=== PATIENT | female | born 1990 | race African-American/Black ===

== ENCOUNTER 2017-02-16 08:52 | Inpatient (IN) | payer MEDICAID ==
[~2017-02-16] VITALS: Ht 185.4 cm; Wt 63.2 kg
[~2017-02-16 08:52] MED LIST: INSU100C3 SQ
[2017-02-16 09:02] LABS: GLUCOSE,POINT OF CARE 269 MG/DL (70-110)
[2017-02-16 09:17] LABS: BASOPHILS # (AUTO) 0.01 K/uL (0.00-0.20); BASOPHILS % (AUTO) 0.1 % (0.0-2.0); EOSINOPHILS # (AUTO) 0.01 K/uL (0.00-0.70); EOSINOPHILS % (AUTO) 0.09 % (1.0-6.0); HEMATOCRIT 41.4 % (36-46); HEMOGLOBIN 13.9 g/dL (12.0-16.0); LYMPHOCYTES # (AUTO) 0.7 K/uL (1.0-4.8); LYMPHOCYTES % (AUTO) 6.4 % (22.0-44.0); MEAN CORPUSCULAR HEMOGLOBIN 29.6 pg (26.0-34.0); MEAN CORPUSCULAR HGB CONC 33.5 G/dL (31.0-37.0); MEAN CORPUSCULAR VOLUME 89 fL (80-100); MONOCYTES # (AUTO) 1.2 K/uL (0.1-1.0); MONOCYTES % (AUTO) 10.4 % (2.0-9.0); NEUTROPHILS # (AUTO) 9.5 K/uL (1.8-7.7); PLATELET COUNT (AUTO) 251 K/uL (150-450); RED BLOOD CELL COUNT(AUTO) 4.68 MIL/uL (4.00-5.20); WHITE BLOOD COUNT (AUTO) 11.5 K/uL (4.5-11.0)
[2017-02-16] MEDS ORDERED: SODIUM CHLORIDE 0.9% 1,000 ML IV ONE ×2 (09:30→10:15)
[2017-02-16 09:33] LABS: ANION GAP 18 mmol/L (8-16); CALCIUM, TOTAL 9.6 mg/dL (8.8-10.5); CARBON DIOXIDE 18 mmol/L (22-29); CHLORIDE 93 mmol/L (98-107); CREATININE 0.71 mg/dL (0.60-1.30); GLOMERULAR FILTR. RATE CALC > 60 mL/min (>60); SODIUM SERUM 129 mmol/L (136-145); UREA NITROGEN, BLOOD 8 mg/dL (7-18)
[2017-02-16 09:34] LABS: ALANINE AMINOTRANSFERASE 16 U/L (12-78); ALBUMIN 3.5 g/dL (3.4-5.0); AMYLASE 36 U/L (25-115); ASPARTATE AMINOTRANSFERASE 25 U/L (15-37); BILIRUBIN,TOTAL 0.8 mg/dL (0.1-1.0)
[2017-02-16 09:37] LABS: APPEARANCE,URINE CLEAR (CLEAR); GLUCOSE, URINE (UA) >=1000 mg/dL (NEGATIVE); KETONES,URINE >=80 mg/dL (NEGATIVE); LEUKOCYTE ESTERASE ,URINE NEGATIVE (NEGATIVE); OCCULT BLOOD,URINE MODERATE (NEGATIVE); PH,URINE 5.5 (5.0-8.0); PROTEIN,URINE POS 1+ (NEGATIVE)
[2017-02-16 09:38] LABS: ADD UA MICROSCOPIC YES
[2017-02-16 09:46] LABS: SQUAMOUS EPITHELIAL CELL,UR Few /LPF (None Seen)
[2017-02-16] MEDS ORDERED: HYDROmorphone 2 MG/ML SYRINGE IVP ONE (10:45)
[2017-02-16] MEDS ORDERED: ONDANSETRON HCL 4 MG/2 ML VIAL IVP ONE (10:45)
[2017-02-16 11:01] LABS: ABG A-A DIFF O2 15.6 mmHg (10-20.0); ABG BASE EXCESS -12.4 mmol/L (-2.0-3.0); ABG HCO3 15.9 mmol/L (22.0-26.0); ABG OXYHEMOGLOBIN 95.3 % (94.0-100.0); ABG PCO2 30 mmHg (35-45); TEMPERATURE, FAHRENHEIT, BG 99.8 FAHREN (96.0-98.6)
[2017-02-16 11:02] LABS: ALLEN TEST, BLOOD GAS Positive
[2017-02-16] MEDS ORDERED: CefTRIAXone 1 GM/DEXTROSE 50 ML IV ONE (12:00)
[2017-02-16 12:12] LABS: GLUCOSE,POINT OF CARE 217 MG/DL (70-110)
[2017-02-16] MEDS ORDERED: SODIUM CHLORIDE 0.45% 1,000 ML IV PRN (13:16)
[2017-02-16] MEDS ORDERED: POTASSIUM CHLORIDE 40 MEQ in SODIUM CHLORIDE 0.45% 1,000 ML IV PRN (13:16)
[2017-02-16] MEDS ORDERED: INSULIN REGULAR, HUMAN 100 UNITS in SODIUM CHLORIDE 0.9% 99 ML IV PRN ×2 (13:16)
[2017-02-16] MEDS ORDERED: SODIUM CHLORIDE 0.9% 1,000 ML IV SCH (13:16)
[2017-02-16] MEDS ORDERED: POTASSIUM CHL 20 MEQ/0.45% NS 1,000 ML IV PRN (13:16)
[2017-02-16] MEDS ORDERED: DEXTROSE 5%-0.45% SODIUM CHL 1,000 ML IV PRN (13:16)
[2017-02-16] MEDS ORDERED: ONDANSETRON HCL 4 MG/2 ML VIAL IVP PRN ×2 (13:30→16:30)
[2017-02-16] MEDS ORDERED: POTASSIUM PHOS,M-BASIC-D-BASIC 20 MMOL in SODIUM CHLORIDE 0.45% 500 ML IV PRN (13:30)
[2017-02-16] MEDS ORDERED: INSULIN REGULAR, HUMAN 100 UNITS/ML IVP PRN (13:30)
[2017-02-16] MEDS ORDERED: DEXTROSE 50%-WATER 25 GM/50 ML SYRINGE IVP PRN ×2 (13:30→20:45)
[2017-02-16] MEDS ORDERED: 0.9% SODIUM CHLORIDE 10 ML SYRINGE IVP PRN (13:30)
[2017-02-16] MEDS ORDERED: INSULIN REGULAR, HUMAN 100 UNITS/ML IVP ONE (13:30)
[2017-02-16] MEDS ORDERED: ACETAMINOPHEN 325 MG TABLET PO PRN ×2 (13:30→21:15)
[2017-02-16 13:57] LABS: GLUCOSE COMMENT 1 Doctor Notified; GLUCOSE,POINT OF CARE 199 MG/DL (70-110)
[2017-02-16 15:21] LABS: ANION GAP 17 mmol/L (8-16); CALCIUM, TOTAL 8.9 mg/dL (8.8-10.5); CARBON DIOXIDE 18 mmol/L (22-29); CHLORIDE 97 mmol/L (98-107); GLOMERULAR FILTR. RATE CALC > 60 mL/min (>60); PHOSPHORUS 2.7 mg/dL (2.5-4.9); SODIUM SERUM 132 mmol/L (136-145); UREA NITROGEN, BLOOD 5 mg/dL (7-18)
[2017-02-16 15:22] LABS: GLUCOSE,POINT OF CARE 207 MG/DL (70-110)
[2017-02-16] MEDS: DEXTROSE 5%-0.45% SODIUM CHL 1,000 ML IV SCH ×2 (15:30→19:51)
[2017-02-16 16:00] VITALS: BP 118/71
[2017-02-16] MEDS ORDERED: MAGNESIUM SULFATE 3 GM in DEXTROSE 5%-WATER 100 ML IV ONE (16:00)
[2017-02-16] MEDS ORDERED: MORPHINE SULFATE 2 MG/ML SYRINGE IVP PRN (16:00)
[2017-02-16] MEDS ORDERED: PROMETHAZINE HCL 25 MG in SODIUM CHLORIDE 0.9% 50 ML IV PRN (16:00)
[2017-02-16] MEDS ORDERED: SODIUM CHLORIDE 0.9% 250 ML IV ONE (16:04)
[2017-02-16] MEDS ORDERED: ONDANSETRON HCL 4 MG/2 ML VIAL IM PRN (16:15)
[2017-02-16] MEDS ORDERED: PHENYLEPHRINE 200 MG/D5%-WATER 250 ML IV PRN (18:45)
[2017-02-16 19:16] LABS: ANION GAP 11 mmol/L (8-16); CALCIUM, TOTAL 9.1 mg/dL (8.8-10.5); CARBON DIOXIDE 23 mmol/L (22-29); CHLORIDE 100 mmol/L (98-107); CREATININE 0.65 mg/dL (0.60-1.30); GLOMERULAR FILTR. RATE CALC > 60 mL/min (>60); POTASSIUM 3.7 mmol/L (3.5-5.1); SODIUM SERUM 134 mmol/L (136-145); UREA NITROGEN, BLOOD 5 mg/dL (7-18)
[2017-02-16 20:00] VITALS: BP 110/70
[2017-02-16] MEDS ORDERED: MAGNESIUM OXIDE 400 MG TABLET PO PRN (20:30)
[2017-02-16] MEDS ORDERED: POTASSIUM CHLORIDE 20 MEQ ER TABLET PO PRN (20:30)
[2017-02-16] MEDS ORDERED: MAGNESIUM SULFATE 4 GM/WATER 100 ML IV PRN (20:30)
[2017-02-16] MEDS ORDERED: POTASSIUM CHL 10 MEQ/WATER 50 ML IV PRN (20:30)
[2017-02-16] MEDS ORDERED: MAGNESIUM SULFATE 2 GM in DEXTROSE 5%-WATER 50 ML IV PRN (20:30)
[2017-02-16] MEDS: ACETAMINOPHEN 325 MG TABLET PO PRN (20:45)
[2017-02-16] MEDS: SODIUM CHLORIDE 0.9% 1,000 ML IV SCH (21:01)
[2017-02-16] MEDS ORDERED: MAGNESIUM HYDROXIDE SUSPENSION 30 ML UDCUP PO PRN (21:15)
[2017-02-16] MEDS: INSULIN DETEMIR 100 UNITS/ML SQ SCH (21:39)
[2017-02-16 22:07] VITALS: BP 114/72
[2017-02-16] MEDS: OxyCODONE HCL/ACETAMINOPHEN 5-325 MG TABLET PO PRN (22:07)
[2017-02-16 23:07] VITALS: BP 98/68
[2017-02-17] VITALS (7 sets, daily range): BP systolic 84–108; BP diastolic 50–75
[2017-02-17] MEDS: INSULIN ASPART 100 UNITS/ML SQ PRN ×5 (00:27→22:12)
[2017-02-17 04:52] LABS: GLUCOSE,POINT OF CARE 119 MG/DL (70-110)
[2017-02-17 04:52] LABS: GLUCOSE COMMENT 1 Received Meds; GLUCOSE,POINT OF CARE 197 MG/DL (70-110)
[2017-02-17 06:05] LABS: ANION GAP 9 mmol/L (8-16); CALCIUM, TOTAL 8.7 mg/dL (8.8-10.5); CARBON DIOXIDE 25 mmol/L (22-29); CHLORIDE 102 mmol/L (98-107); CREATININE 0.53 mg/dL (0.60-1.30); GLOMERULAR FILTR. RATE CALC > 60 mL/min (>60); PHOSPHORUS 2.8 mg/dL (2.5-4.9); POTASSIUM 3.6 mmol/L (3.5-5.1); SODIUM SERUM 136 mmol/L (136-145); UREA NITROGEN, BLOOD 4 mg/dL (7-18)
[2017-02-17 06:41] LABS: BASOPHILS % (AUTO) 0.4 % (0.0-2.0); EOSINOPHILS % (AUTO) 0.7 % (1.0-6.0); HEMATOCRIT 41.1 % (36-46); HEMOGLOBIN 13.5 g/dL (12.0-16.0); LYMPHOCYTES # (AUTO) 1.3 K/uL (1.0-4.8); LYMPHOCYTES % (AUTO) 14.1 % (22.0-44.0); MEAN CORPUSCULAR HEMOGLOBIN 29.6 pg (26.0-34.0); MEAN CORPUSCULAR HGB CONC 32.8 G/dL (31.0-37.0); MEAN CORPUSCULAR VOLUME 90 fL (80-100); MONOCYTES # (AUTO) 1.4 K/uL (0.1-1.0); MONOCYTES % (AUTO) 15.9 % (2.0-9.0); NEUTROPHILS # (AUTO) 6.3 K/uL (1.8-7.7); NEUTROPHILS % (AUTO) 68.9 % (40.0-70.0); PLATELET COUNT (AUTO) 244 K/uL (150-450); RED BLOOD CELL COUNT(AUTO) 4.57 MIL/uL (4.00-5.20); RED CELL DISTRIBUTION WIDTH 12.2 % (11.5-14.5); WHITE BLOOD COUNT (AUTO) 9.1 K/uL (4.5-11.0)
[2017-02-17] MEDS: OxyCODONE HCL/ACETAMINOPHEN 5-325 MG TABLET PO PRN ×3 (06:42→22:10)
[2017-02-17] MEDS: SODIUM CHLORIDE 0.9% 1,000 ML IV SCH ×2 (06:42→17:01)
[2017-02-17 07:23] LABS: GLUCOSE,POINT OF CARE 210 MG/DL (70-110)
[2017-02-17 07:23] LABS: GLUCOSE,POINT OF CARE 161 MG/DL (70-110)
[2017-02-17 07:31] LABS: GLUCOSE COMMENT 1 Received Meds; GLUCOSE,POINT OF CARE 148 MG/DL (70-110)
[2017-02-17 07:32] LABS: GLUCOSE COMMENT 1 Received Meds; GLUCOSE,POINT OF CARE 190 MG/DL (70-110)
[2017-02-17 07:32] LABS: GLUCOSE,POINT OF CARE 104 MG/DL (70-110)
[2017-02-17] MEDS: PANTOPRAZOLE SODIUM 40 MG/VIAL IVP SCH (08:17)
[2017-02-17] MEDS: DOCUSATE SODIUM 100 MG CAPSULE PO SCH ×2 (08:17→22:11)
[2017-02-17 09:42] LABS: GLUCOSE,POINT OF CARE 134 MG/DL (70-110)
[2017-02-17] MEDS: POTASSIUM CHLORIDE 20 MEQ ER TABLET PO PRN (10:28)
[2017-02-17] MEDS: ACETAMINOPHEN 325 MG TABLET PO PRN (10:29)
[2017-02-17 11:17] LABS: GLUCOSE COMMENT 1 Received Meds; GLUCOSE,POINT OF CARE 167 MG/DL (70-110)
[2017-02-17] MEDS: CefTRIAXone 1 GM/DEXTROSE 50 ML IV SCH (11:19)
[2017-02-17] MEDS: INSULIN DETEMIR 100 UNITS/ML SQ SCH (22:13)
[2017-02-18 04:40] VITALS: BP 109/70
[2017-02-18] MEDS: SODIUM CHLORIDE 0.9% 1,000 ML IV SCH ×2 (04:43→13:56)
[2017-02-18] MEDS: POTASSIUM CHLORIDE 20 MEQ ER TABLET PO PRN (05:03)
[2017-02-18] MEDS: OxyCODONE HCL/ACETAMINOPHEN 5-325 MG TABLET PO PRN ×3 (05:03→14:40)
[2017-02-18] MEDS: INSULIN ASPART 100 UNITS/ML SQ PRN ×2 (06:11→12:34)
[2017-02-18 07:16] VITALS: BP 95/64
[2017-02-18] MEDS: PANTOPRAZOLE SODIUM 40 MG/VIAL IVP SCH (09:23)
[2017-02-18] MEDS: DOCUSATE SODIUM 100 MG CAPSULE PO SCH (09:23)
[2017-02-18] MEDS: POTASSIUM CHL 10 MEQ/WATER 50 ML IV PRN ×2 (10:43→14:02)
[2017-02-18 11:12] VITALS: BP 92/53
[2017-02-18] MEDS: CefTRIAXone 1 GM/DEXTROSE 50 ML IV SCH (12:36)
[2017-02-18 15:12] VITALS: BP 99/65
[2017-02-18 20:57] LABS: GLUCOSE,POINT OF CARE 165 MG/DL (70-110)
[2017-02-19 04:22] LABS: GLUCOSE,POINT OF CARE 141 MG/DL (70-110)
[2017-02-20 20:27] LABS: GLUCOSE COMMENT 1 Received Meds; GLUCOSE,POINT OF CARE 221 MG/DL (70-110)
== END 2017-02-18 18:35 | disposition home or self-care (01) | DRG 720 ==
LOC: EMS 08:53 → ICU 15:25 → EMS 15:29 → 5S 02-17 16:20 → 5N 02-18 04:28
PROVIDERS: ADMIT Internal Medicine; ATTEND Internal Medicine
DX: A41.59 Other Gram-negative sepsis (principal); E13.10 Other specified diabetes mellitus with ketoacidosis without coma; N39.0 Urinary tract infection, site not specified; B96.1 Klebsiella pneumoniae [K. pneumoniae] as the cause of diseases classified elsewhere; E87.1 Hypo-osmolality and hyponatremia; Z91.19 Patient's noncompliance with other medical treatment and regimen; Z79.4 Long term (current) use of insulin
CPT/HCPCS: 74176; 82805; 82962; 83735; 84100; 84132; 87040; 87081; 87086; 96361; 96365; 96367; 96375; 99291; C9113; J0696; J1170; J1815; J2270; J2405; J3475; J3480; J7030; J7050; J7060

== ENCOUNTER 2017-04-22 20:30 | Emergency (ER) | payer MEDICAID ==
[~2017-04-22] VITALS: Ht 185.4 cm; Wt 59.5 kg
[2017-04-22] MEDS ORDERED: INSLAN SQ (20:38)
[2017-04-22 20:47] LABS: GLUCOSE,POINT OF CARE 260 MG/DL (70-110)
[2017-04-22 20:55] LABS: BASOPHILS % (AUTO) 0.2 % (0.0-2.0); EOSINOPHILS % (AUTO) 0.8 % (1.0-6.0); HEMATOCRIT 40.8 % (36-46); HEMOGLOBIN 13.6 g/dL (12.0-16.0); LYMPHOCYTES # (AUTO) 1.6 K/uL (1.0-4.8); LYMPHOCYTES % (AUTO) 14.7 % (22.0-44.0); MEAN CORPUSCULAR HEMOGLOBIN 29.1 pg (26.0-34.0); MEAN CORPUSCULAR HGB CONC 33.4 G/dL (31.0-37.0); MEAN CORPUSCULAR VOLUME 87 fL (80-100); MONOCYTES # (AUTO) 0.6 K/uL (0.1-1.0); MONOCYTES % (AUTO) 5.9 % (2.0-9.0); NEUTROPHILS # (AUTO) 8.5 K/uL (1.8-7.7); NEUTROPHILS % (AUTO) 78.4 % (40.0-70.0); PLATELET COUNT (AUTO) 357 K/uL (150-450); RED BLOOD CELL COUNT(AUTO) 4.67 MIL/uL (4.00-5.20); RED CELL DISTRIBUTION WIDTH 12.5 % (11.5-14.5); WHITE BLOOD COUNT (AUTO) 10.9 K/uL (4.5-11.0)
[2017-04-22 21:03] LABS: ANION GAP 12 mmol/L (8-16); CALCIUM, TOTAL 9.9 mg/dL (8.8-10.5); CARBON DIOXIDE 29 mmol/L (22-29); CHLORIDE 96 mmol/L (98-107); CREATININE 0.82 mg/dL (0.60-1.30); GLOMERULAR FILTR. RATE CALC > 60 mL/min (>60); POTASSIUM 4.2 mmol/L (3.5-5.1); SODIUM SERUM 137 mmol/L (136-145); UREA NITROGEN, BLOOD 8 mg/dL (7-18)
[2017-04-22 21:09] LABS: ALANINE AMINOTRANSFERASE 17 U/L (12-78); ALBUMIN 3.7 g/dL (3.4-5.0); ASPARTATE AMINOTRANSFERASE 10 U/L (15-37); BILIRUBIN,TOTAL 0.7 mg/dL (0.1-1.0); TOTAL PROTEIN, SERUM 8.5 g/dL (6.4-8.2)
[2017-04-22] MEDS: DONNATAL/LIDOCAINE/MAALOX 55 ML BOTTLE PO ONE (21:52)
[2017-04-22] MEDS: ONDANSETRON HCL 4 MG TABLET PO ONE (21:52)
[2017-04-22 22:23] LABS: APPEARANCE,URINE CLOUDY (CLEAR); GLUCOSE, URINE (UA) >=1000 mg/dL (NEGATIVE); KETONES,URINE >=80 mg/dL (NEGATIVE); OCCULT BLOOD,URINE TRACE (NEGATIVE); PROTEIN,URINE SEE CONFIRM (NEGATIVE)
[2017-04-22 22:29] LABS: ADD UA MICROSCOPIC YES; LEUKOCYTE ESTERASE ,URINE LARGE (NEGATIVE); SQUAMOUS EPITHELIAL CELL,UR Few /LPF (None Seen); SULFOSALICYLIC ACID,URINE 1+ (Negative); WBC,URINE 51-100 /HPF (0-5)
[2017-04-22] MEDS: CIPROFLOXACIN HCL 250 MG TABLET PO ONE (23:16)
[2017-04-22 23:25] VITALS: BP 103/69
== END 2017-04-22 23:39 | disposition home or self-care (01) ==
LOC: EMS 20:33
DX: K29.70 Gastritis, unspecified, without bleeding (principal); N39.0 Urinary tract infection, site not specified; E11.9 Type 2 diabetes mellitus without complications; Z79.4 Long term (current) use of insulin
CPT/HCPCS: 36415; 80053; 81001; 82962; 83690; 84703; 85025; 87077; 87086; 87186; 99284; Q0162; Z7610

== ENCOUNTER 2017-08-23 10:18 | Inpatient (IN) | payer MEDICAID ==
[~2017-08-23] VITALS: Ht 185.4 cm; Wt 60.0 kg
[~2017-08-23 10:18] MED LIST changes: +INSLAN SQ
[2017-08-23 10:47] LABS: GLUCOSE,POINT OF CARE 389 MG/DL (70-110)
[2017-08-23] MEDS ORDERED: SODIUM CHLORIDE 0.9% 1,000 ML IV STA (12:02)
[2017-08-23] MEDS ORDERED: ONDANSETRON HCL 4 MG/2 ML VIAL IVP ONE (12:15)
[2017-08-23 12:26] LABS: BASOPHILS % (AUTO) 0.1 % (0.0-2.0); EOSINOPHILS % (AUTO) 0 % (1.0-6.0); HEMATOCRIT 46.4 % (36-46); HEMOGLOBIN 15.7 g/dL (12.0-16.0); LYMPHOCYTES # (AUTO) 0.9 K/uL (1.0-4.8); LYMPHOCYTES % (AUTO) 4.8 % (22.0-44.0); MEAN CORPUSCULAR HEMOGLOBIN 30.7 pg (26.0-34.0); MEAN CORPUSCULAR HGB CONC 33.9 G/dL (31.0-37.0); MEAN CORPUSCULAR VOLUME 91 fL (80-100); MONOCYTES # (AUTO) 0.6 K/uL (0.1-1.0); MONOCYTES % (AUTO) 3.5 % (2.0-9.0); NEUTROPHILS # (AUTO) 16.9 K/uL (1.8-7.7); NEUTROPHILS % (AUTO) 91.6 % (40.0-70.0); PLATELET COUNT (AUTO) 330 K/uL (150-450); RED BLOOD CELL COUNT(AUTO) 5.12 MIL/uL (4.00-5.20); RED CELL DISTRIBUTION WIDTH 12.5 % (11.5-14.5); WHITE BLOOD COUNT (AUTO) 18.5 K/uL (4.5-11.0)
[2017-08-23 12:46] LABS: ANION GAP 24 mmol/L (8-16); CALCIUM, TOTAL 9.2 mg/dL (8.8-10.5); CARBON DIOXIDE 12 mmol/L (22-29); CHLORIDE 96 mmol/L (98-107); CREATININE 0.83 mg/dL (0.60-1.30); GLOMERULAR FILTR. RATE CALC > 60 mL/min (>60); POTASSIUM 5.1 mmol/L (3.5-5.1); SODIUM SERUM 132 mmol/L (136-145); UREA NITROGEN, BLOOD 15 mg/dL (7-18)
[2017-08-23 12:48] LABS: ALANINE AMINOTRANSFERASE 40 U/L (12-78); ALBUMIN 4.8 g/dL (3.4-5.0); ASPARTATE AMINOTRANSFERASE 21 U/L (15-37); BILIRUBIN,TOTAL 0.9 mg/dL (0.1-1.0); TOTAL PROTEIN, SERUM 8.8 g/dL (6.4-8.2)
[2017-08-23] MEDS ORDERED: SODIUM CHLORIDE 0.9% 1,000 ML IV ONE ×3 (13:00→18:30)
[2017-08-23] MEDS ORDERED: INSULIN DETEMIR 100 UNITS/ML SQ ONE (13:30)
[2017-08-23] MEDS ORDERED: INSULIN ASPART 100 UNITS/ML SQ ONE ×2 (13:30→17:15)
[2017-08-23] MEDS ORDERED: METOCLOPRAMIDE HCL 5 MG/ML 2 ML VIAL IVP ONE (14:45)
[2017-08-23 15:30] LABS: ANION GAP 18 mmol/L (8-16); CALCIUM, TOTAL 8.3 mg/dL (8.8-10.5); CARBON DIOXIDE 15 mmol/L (22-29); CHLORIDE 103 mmol/L (98-107); CREATININE 0.98 mg/dL (0.60-1.30); GLOMERULAR FILTR. RATE CALC > 60 mL/min (>60); POTASSIUM 4.5 mmol/L (3.5-5.1); SODIUM SERUM 136 mmol/L (136-145); UREA NITROGEN, BLOOD 12 mg/dL (7-18)
[2017-08-23 16:19] LABS: GLUCOSE COMMENT 1 Doctor Notified; GLUCOSE,POINT OF CARE 232 MG/DL (70-110)
[2017-08-23 16:19] LABS: GLUCOSE COMMENT 1 Doctor Notified; GLUCOSE,POINT OF CARE 274 MG/DL (70-110)
[2017-08-23] MEDS ORDERED: MAGNESIUM HYDROXIDE SUSPENSION 30 ML UDCUP PO ONE (17:15)
[2017-08-23 17:17] LABS: APPEARANCE,URINE CLEAR (CLEAR); GLUCOSE, URINE (UA) >=1000 mg/dL (NEGATIVE); KETONES,URINE >=80 mg/dL (NEGATIVE); LEUKOCYTE ESTERASE ,URINE NEGATIVE (NEGATIVE); OCCULT BLOOD,URINE MODERATE (NEGATIVE); PH,URINE 5.5 (5.0-8.0); PROTEIN,URINE NEGATIVE (NEGATIVE)
[2017-08-23 17:40] LABS: WBC,URINE 0-2 /HPF (0-5)
[2017-08-23 17:41] LABS: SQUAMOUS EPITHELIAL CELL,UR Few /LPF (None Seen)
[2017-08-23 17:52] LABS: GLUCOSE,POINT OF CARE 201 MG/DL (70-110)
[2017-08-23] MEDS ORDERED: PANTOPRAZOLE SODIUM 40 MG/VIAL IVP ONE ×2 (18:15→22:45)
[2017-08-23] MEDS ORDERED: PROMETHAZINE HCL 25 MG/ML VIAL IM ONE ×2 (18:15→19:00)
[2017-08-23] MEDS ORDERED: PROMETHAZINE HCL 50 MG/ML VIAL IM ONE (18:45)
[2017-08-23 21:12] LABS: APPEARANCE,URINE CLEAR (CLEAR); GLUCOSE, URINE (UA) >=1000 mg/dL (NEGATIVE); KETONES,URINE >=80 mg/dL (NEGATIVE); LEUKOCYTE ESTERASE ,URINE NEGATIVE (NEGATIVE); OCCULT BLOOD,URINE LARGE (NEGATIVE); PH,URINE 5.5 (5.0-8.0); PROTEIN,URINE TRACE (NEGATIVE)
[2017-08-23 21:14] LABS: ANION GAP 17 mmol/L (8-16); CALCIUM, TOTAL 8.6 mg/dL (8.8-10.5); CARBON DIOXIDE 17 mmol/L (22-29); CHLORIDE 105 mmol/L (98-107); CREATININE 0.89 mg/dL (0.60-1.30); GLOMERULAR FILTR. RATE CALC > 60 mL/min (>60); POTASSIUM 4.1 mmol/L (3.5-5.1); SODIUM SERUM 139 mmol/L (136-145); UREA NITROGEN, BLOOD 8 mg/dL (7-18)
[2017-08-23 21:18] LABS: ADD UA MICROSCOPIC YES
[2017-08-23 21:19] LABS: RBC,URINE 51-100 /HPF (0-2); SQUAMOUS EPITHELIAL CELL,UR Few /LPF (None Seen); WBC,URINE 0-2 /HPF (0-5)
[2017-08-23 21:19] LABS: ALANINE AMINOTRANSFERASE 32 U/L (12-78); ASPARTATE AMINOTRANSFERASE 18 U/L (15-37); BILIRUBIN,TOTAL 0.9 mg/dL (0.1-1.0); TOTAL PROTEIN, SERUM 7.1 g/dL (6.4-8.2)
[2017-08-23 21:23] LABS: ABG A-A DIFF O2 18.3 mmHg (10-20.0); ABG BASE EXCESS -10.4 mmol/L (-2.0-3.0); ABG HCO3 17.3 mmol/L (22.0-26.0); ABG OXYHEMOGLOBIN 95.6 % (94.0-100.0); ABG PCO2 31 mmHg (35-45); ABG PH 7.326 (7.350-7.450); TEMPERATURE, FAHRENHEIT, BG 98.6 FAHREN (96.0-98.6)
[2017-08-23 21:24] LABS: ALLEN TEST, BLOOD GAS Positive
[2017-08-23] MEDS ORDERED: DEXTROSE 5%-WATER 1,000 ML IV SCH (22:28)
[2017-08-23] MEDS ORDERED: ONDANSETRON HCL 4 MG/2 ML VIAL IVP PRN (22:30)
[2017-08-23] MEDS ORDERED: ACETAMINOPHEN 325 MG TABLET PO PRN ×2 (22:30→23:00)
[2017-08-23] MEDS ORDERED: 0.9% SODIUM CHLORIDE 10 ML SYRINGE IVP PRN (22:30)
[2017-08-23] MEDS ORDERED: DEXTROSE 50%-WATER 25 GM/50 ML SYRINGE IVP PRN ×2 (22:30→23:00)
[2017-08-23] MEDS ORDERED: DONNATAL/LIDOCAINE/MAALOX 55 ML BOTTLE PO ONE (22:45)
[2017-08-23] MEDS ORDERED: SODIUM CHLORIDE 0.9% 1,000 ML IV SCH (22:56)
[2017-08-23] MEDS ORDERED: SODIUM CHLORIDE 0.45% 1,000 ML IV PRN (22:56)
[2017-08-23] MEDS ORDERED: DEXTROSE 5%-0.45% SODIUM CHL 1,000 ML IV PRN (22:56)
[2017-08-23] MEDS ORDERED: POTASSIUM CHLORIDE 40 MEQ in SODIUM CHLORIDE 0.45% 1,000 ML IV PRN (22:56)
[2017-08-23] MEDS ORDERED: POTASSIUM CHL 20 MEQ/0.45% NS 1,000 ML IV PRN (22:56)
[2017-08-23] MEDS: INSULIN REGULAR, HUMAN 100 UNITS in SODIUM CHLORIDE 0.9% 99 ML IV PRN ×2 (22:58)
[2017-08-23] MEDS ORDERED: IPRATROPIUM BROMIDE 0.5 MG/2.5 ML NEB SOLUTION NEB PRN (23:00)
[2017-08-23] MEDS ORDERED: INSULIN REGULAR, HUMAN 100 UNITS/ML IVP PRN (23:00)
[2017-08-23] MEDS ORDERED: BISACODYL 10 MG RECTAL RECTAL SUPPOSITORY PR PRN (23:00)
[2017-08-23] MEDS ORDERED: MAGNESIUM HYDROXIDE SUSPENSION 30 ML UDCUP PO PRN (23:00)
[2017-08-23] MEDS ORDERED: ALBUTEROL SULFATE 2.5 MG/0.5 ML NEB SOLUTION NEB PRN (23:00)
[2017-08-23 23:02] LABS: GLUCOSE COMMENT 1 Doctor Notified; GLUCOSE,POINT OF CARE 180 MG/DL (70-110)
[2017-08-24 00:04] LABS: ANION GAP 18 mmol/L (8-16); CALCIUM, TOTAL 8.9 mg/dL (8.8-10.5); CARBON DIOXIDE 16 mmol/L (22-29); CHLORIDE 104 mmol/L (98-107); CREATININE 0.86 mg/dL (0.60-1.30); GLOMERULAR FILTR. RATE CALC > 60 mL/min (>60); POTASSIUM 4.2 mmol/L (3.5-5.1); SODIUM SERUM 138 mmol/L (136-145); UREA NITROGEN, BLOOD 8 mg/dL (7-18)
[2017-08-24] MEDS: INSULIN REGULAR, HUMAN 100 UNITS in SODIUM CHLORIDE 0.9% 99 ML IV PRN ×2 (00:29)
[2017-08-24 01:07] LABS: GLUCOSE,POINT OF CARE 196 MG/DL (70-110)
[2017-08-24 02:12] LABS: GLUCOSE COMMENT 1 Doctor Notified; GLUCOSE,POINT OF CARE 218 MG/DL (70-110)
[2017-08-24 03:12] LABS: GLUCOSE,POINT OF CARE 194 MG/DL (70-110)
[2017-08-24 04:07] LABS: GLUCOSE,POINT OF CARE 176 MG/DL (70-110)
[2017-08-24] MEDS: ONDANSETRON HCL 4 MG/2 ML VIAL IVP PRN ×4 (04:24→21:33)
[2017-08-24 05:03] LABS: BASOPHILS # (AUTO) 0.03 K/uL (0.00-0.20); BASOPHILS % (AUTO) 0.2 % (0.0-2.0); EOSINOPHILS # (AUTO) 0.01 K/uL (0.00-0.70); EOSINOPHILS % (AUTO) 0.09 % (1.0-6.0); HEMATOCRIT 41.5 % (36-46); HEMOGLOBIN 13.9 g/dL (12.0-16.0); LYMPHOCYTES # (AUTO) 1.3 K/uL (1.0-4.8); LYMPHOCYTES % (AUTO) 10.4 % (22.0-44.0); MEAN CORPUSCULAR HEMOGLOBIN 30.4 pg (26.0-34.0); MEAN CORPUSCULAR HGB CONC 33.5 G/dL (31.0-37.0); MEAN CORPUSCULAR VOLUME 91 fL (80-100); MONOCYTES # (AUTO) 0.7 K/uL (0.1-1.0); MONOCYTES % (AUTO) 5.5 % (2.0-9.0); NEUTROPHILS # (AUTO) 10.7 K/uL (1.8-7.7); NEUTROPHILS % (AUTO) 83.8 % (40.0-70.0); PLATELET COUNT (AUTO) 276 K/uL (150-450); RED BLOOD CELL COUNT(AUTO) 4.58 MIL/uL (4.00-5.20); RED CELL DISTRIBUTION WIDTH 12.5 % (11.5-14.5); WHITE BLOOD COUNT (AUTO) 12.7 K/uL (4.5-11.0)
[2017-08-24 05:08] LABS: GLUCOSE,POINT OF CARE 178 MG/DL (70-110)
[2017-08-24] MEDS: MORPHINE SULFATE 2 MG/ML SYRINGE IVP PRN ×4 (05:09→20:07)
[2017-08-24 05:12] LABS: HEMOGLOBIN A1C 12.1 % (4.5-6.2)
[2017-08-24 05:17] LABS: ALANINE AMINOTRANSFERASE 31 U/L (12-78); ALBUMIN 3.9 g/dL (3.4-5.0); ANION GAP 16 mmol/L (8-16); ASPARTATE AMINOTRANSFERASE 19 U/L (15-37); CALCIUM, TOTAL 8.6 mg/dL (8.8-10.5); CARBON DIOXIDE 18 mmol/L (22-29); CHLORIDE 103 mmol/L (98-107); CHOL/HDL RATIO 2.3 (3.9-5.7); CREATININE 0.89 mg/dL (0.60-1.30); GLOMERULAR FILTR. RATE CALC > 60 mL/min (>60); PHOSPHORUS 1.5 mg/dL (2.5-4.9); POTASSIUM 3.9 mmol/L (3.5-5.1); SODIUM SERUM 137 mmol/L (136-145); TOTAL PROTEIN, SERUM 7.2 g/dL (6.4-8.2); UREA NITROGEN, BLOOD 8 mg/dL (7-18)
[2017-08-24 06:13] LABS: GLUCOSE,POINT OF CARE 165 MG/DL (70-110)
[2017-08-24 06:54] LABS: ABG A-A DIFF O2 7.8 mmHg (10-20.0); ABG BASE EXCESS -5.7 mmol/L (-2.0-3.0); ABG HCO3 20.4 mmol/L (22.0-26.0); ABG PCO2 37 mmHg (35-45); ABG PH 7.353 (7.350-7.450); TEMPERATURE, FAHRENHEIT, BG 98.6 FAHREN (96.0-98.6)
[2017-08-24 06:55] LABS: ALLEN TEST, BLOOD GAS Positive
[2017-08-24 07:08] LABS: GLUCOSE,POINT OF CARE 157 MG/DL (70-110)
[2017-08-24] MEDS ORDERED: DEXTROSE 50%-WATER 25 GM/50 ML SYRINGE IVP PRN ×2 (08:00→17:30)
[2017-08-24] MEDS: INSULIN DETEMIR 100 UNITS/ML SQ SCH ×2 (08:09→21:00)
[2017-08-24] MEDS: PANTOPRAZOLE SODIUM 40 MG/VIAL IVP SCH (08:10)
[2017-08-24] MEDS: SODIUM CHLORIDE 0.9% 500 ML IV SCH ×2 (08:11→11:05)
[2017-08-24 09:03] LABS: GLUCOSE,POINT OF CARE 159 MG/DL (70-110)
[2017-08-24 09:26] VITALS: BP 111/66
[2017-08-24 11:08] VITALS: BP 114/70
[2017-08-24] MEDS: INSULIN REGULAR, HUMAN 100 UNITS/ML SQ PRN ×2 (11:42→16:20)
[2017-08-24] MEDS: SODIUM CHLORIDE 0.9% 1,000 ML IV SCH ×2 (12:00→21:34)
[2017-08-24 14:33] LABS: ANION GAP 10 mmol/L (8-16); CALCIUM, TOTAL 8.6 mg/dL (8.8-10.5); CARBON DIOXIDE 21 mmol/L (22-29); CHLORIDE 105 mmol/L (98-107); CREATININE 0.76 mg/dL (0.60-1.30); GLOMERULAR FILTR. RATE CALC > 60 mL/min (>60); SODIUM SERUM 136 mmol/L (136-145); UREA NITROGEN, BLOOD 5 mg/dL (7-18)
[2017-08-24 15:30] VITALS: BP 114/69
[2017-08-24] MEDS ORDERED: INFLUENZA VIRUS VACCINE QVS 2017-18 (3YR+)/PF 60 MCG/0.5 ML SYRINGE IM ONE (19:00)
[2017-08-24 19:29] VITALS: BP 120/73
[2017-08-24 20:23] LABS: ANION GAP 14 mmol/L (8-16); CALCIUM, TOTAL 8.7 mg/dL (8.8-10.5); CARBON DIOXIDE 20 mmol/L (22-29); CHLORIDE 102 mmol/L (98-107); GLOMERULAR FILTR. RATE CALC > 60 mL/min (>60); POTASSIUM 3.9 mmol/L (3.5-5.1); SODIUM SERUM 136 mmol/L (136-145); UREA NITROGEN, BLOOD 6 mg/dL (7-18)
[2017-08-24] MEDS: INSULIN ASPART 100 UNITS/ML SQ PRN (21:26)
[2017-08-24 23:20] VITALS: BP 109/74
[2017-08-24 23:42] LABS: GLUCOSE COMMENT 1 Received Meds; GLUCOSE,POINT OF CARE 168 MG/DL (70-110)
[2017-08-24 23:48] LABS: GLUCOSE COMMENT 1 Received Meds; GLUCOSE,POINT OF CARE 187 MG/DL (70-110)
[2017-08-25] VITALS (7 sets, daily range): BP systolic 99–117; BP diastolic 58–73
[2017-08-25] MEDS: MORPHINE SULFATE 2 MG/ML SYRINGE IVP PRN ×3 (02:11→18:01)
[2017-08-25 02:33] LABS: ANION GAP 12 mmol/L (8-16); CALCIUM, TOTAL 8.3 mg/dL (8.8-10.5); CARBON DIOXIDE 21 mmol/L (22-29); CHLORIDE 104 mmol/L (98-107); CREATININE 0.76 mg/dL (0.60-1.30); GLOMERULAR FILTR. RATE CALC > 60 mL/min (>60); POTASSIUM 3.7 mmol/L (3.5-5.1); SODIUM SERUM 137 mmol/L (136-145); UREA NITROGEN, BLOOD 5 mg/dL (7-18)
[2017-08-25] MEDS: INSULIN ASPART 100 UNITS/ML SQ PRN ×4 (06:18→20:05)
[2017-08-25 06:28] LABS: GLUCOSE COMMENT 1 Received Meds; GLUCOSE,POINT OF CARE 180 MG/DL (70-110)
[2017-08-25 06:34] LABS: GLUCOSE COMMENT 1 Received Meds; GLUCOSE,POINT OF CARE 197 MG/DL (70-110)
[2017-08-25 07:06] LABS: ANION GAP 13 mmol/L (8-16); CALCIUM, TOTAL 8.3 mg/dL (8.8-10.5); CARBON DIOXIDE 21 mmol/L (22-29); CHLORIDE 103 mmol/L (98-107); CREATININE 0.78 mg/dL (0.60-1.30); GLOMERULAR FILTR. RATE CALC > 60 mL/min (>60); POTASSIUM 3.6 mmol/L (3.5-5.1); SODIUM SERUM 137 mmol/L (136-145); UREA NITROGEN, BLOOD 6 mg/dL (7-18)
[2017-08-25] MEDS: PANTOPRAZOLE SODIUM 40 MG/VIAL IVP SCH (08:50)
[2017-08-25] MEDS: INSULIN DETEMIR 100 UNITS/ML SQ SCH ×2 (08:52→20:07)
[2017-08-25] MEDS: SODIUM CHLORIDE 0.9% 1,000 ML IV SCH ×2 (08:53→18:02)
[2017-08-25] MEDS: HYDROCODONE/ACETAMINOPHEN 5-325 MG TABLET PO PRN (21:41)
[2017-08-26 00:08] LABS: GLUCOSE COMMENT 1 Received Meds; GLUCOSE,POINT OF CARE 194 MG/DL (70-110)
[2017-08-26 00:12] VITALS: BP 101/64
[2017-08-26 00:13] LABS: GLUCOSE COMMENT 1 Received Meds; GLUCOSE,POINT OF CARE 143 MG/DL (70-110)
[2017-08-26 00:37] LABS: GLUCOSE COMMENT 1 Received Meds; GLUCOSE,POINT OF CARE 198 MG/DL (70-110)
[2017-08-26 00:43] LABS: GLUCOSE COMMENT 1 Received Meds; GLUCOSE,POINT OF CARE 144 MG/DL (70-110)
[2017-08-26] MEDS: MORPHINE SULFATE 2 MG/ML SYRINGE IVP PRN ×2 (01:52→08:54)
[2017-08-26] MEDS: SODIUM CHLORIDE 0.9% 1,000 ML IV SCH (03:39)
[2017-08-26 04:17] VITALS: BP 111/67
[2017-08-26] MEDS: HYDROCODONE/ACETAMINOPHEN 5-325 MG TABLET PO PRN ×2 (05:43→12:42)
[2017-08-26 07:33] VITALS: BP 96/57
[2017-08-26] MEDS: PANTOPRAZOLE SODIUM 40 MG/VIAL IVP SCH (08:41)
[2017-08-26 08:47] VITALS: BP 117/74
[2017-08-26] MEDS: INSULIN DETEMIR 100 UNITS/ML SQ SCH (08:59)
[2017-08-26 12:21] VITALS: BP 109/72
[2017-08-26] MEDS: INSULIN ASPART 100 UNITS/ML SQ PRN ×2 (12:39→18:11)
[2017-08-26 15:41] VITALS: BP 118/70
[2017-08-27 05:58] LABS: GLUCOSE,POINT OF CARE 115 MG/DL (70-110)
[2017-08-27 05:58] LABS: GLUCOSE COMMENT 1 Received Meds; GLUCOSE,POINT OF CARE 143 MG/DL (70-110)
[2017-08-27 11:35] LABS: GLUCOSE COMMENT 1 Received Meds; GLUCOSE,POINT OF CARE 182 MG/DL (70-110)
[2017-08-28 17:32] LABS: GLUCOSE COMMENT 1 Received Meds; GLUCOSE,POINT OF CARE 175 MG/DL (70-110)
== END 2017-08-26 18:45 | disposition home or self-care (01) | DRG 639 ==
LOC: EMS 10:19 → 5S 08-24 06:09 → ICU 08-24 06:09 → 5S 08-24 08:57
PROVIDERS: ADMIT Hospitalist; ATTEND Hospitalist
PROC: 3E0234Z Introduction of Serum, Toxoid and Vaccine into Muscle, Percutaneous Approach (ICD-10-PCS; principal; 2017-08-24)
DX: E10.10 Type 1 diabetes mellitus with ketoacidosis without coma (principal); D72.829 Elevated white blood cell count, unspecified; E86.0 Dehydration; R31.29 Other microscopic hematuria; Z79.4 Long term (current) use of insulin; Z91.14 Patient's other noncompliance with medication regimen; Z23 Encounter for immunization
CPT/HCPCS: 74176; 82805; 82962; 83036; 83605; 83735; 84100; 86140; 87040; 90471; 93005; 96361; 96365; 96366; 96372; 96375; 96376; 99291; C9113; J1815; J2270; J2405; J2550; J2765; J3480; J7030; J7040; J7050; J7060

== ENCOUNTER 2018-10-08 09:06 | Emergency (ER) | payer MEDICAID ==
[~2018-10-08] VITALS: Ht 185.4 cm; Wt 55.0 kg
[2018-10-08] MEDS ORDERED: BUPIVACAINE HCL/PF 0.5% 30 ML VIAL SQ ONE (10:45)
[2018-10-08] MEDS ORDERED: CefTRIAXone SODIUM 2 GM in DEXTROSE 5%-WATER 50 ML IV ONE (10:45)
[2018-10-08] MEDS ORDERED: KETOROLAC TROMETHAMINE 30 MG/ML VIAL IVP ONE (10:45)
[2018-10-08] MEDS ORDERED: HYDROCODONE/ACETAMINOPHEN 5-325 MG TABLET PO ONE (10:45)
[2018-10-08] MEDS ORDERED: ONDANSETRON HCL 4 MG/2 ML VIAL IVP ONE (10:45)
[2018-10-08] MEDS ORDERED: INSULIN REGULAR, HUMAN 100 UNITS/ML IVP ONE (10:45)
[2018-10-08] MEDS ORDERED: DOXYCYCLINE HYCLATE 100 MG CAPSULE PO ONE (10:45)
[2018-10-08 10:56] LABS: BASOPHILS % (AUTO) 0.3 % (0.0-2.0); EOSINOPHILS % (AUTO) 0.3 % (1.0-6.0); HEMATOCRIT 36.6 % (36-46); HEMOGLOBIN 12.5 g/dL (12.0-16.0); LYMPHOCYTES # (AUTO) 0.7 K/uL (1.0-4.8); LYMPHOCYTES % (AUTO) 5.9 % (22.0-44.0); MEAN CORPUSCULAR HEMOGLOBIN 30.3 pg (26.0-34.0); MEAN CORPUSCULAR HGB CONC 34.1 G/dL (31.0-37.0); MEAN CORPUSCULAR VOLUME 89 fL (80-100); MONOCYTES # (AUTO) 1.3 K/uL (0.1-1.0); MONOCYTES % (AUTO) 10.8 % (2.0-9.0); NEUTROPHILS # (AUTO) 10.3 K/uL (1.8-7.7); NEUTROPHILS % (AUTO) 82.7 % (40.0-70.0); PLATELET COUNT (AUTO) 298 K/uL (150-450); RED BLOOD CELL COUNT(AUTO) 4.13 MIL/uL (4.00-5.20); RED CELL DISTRIBUTION WIDTH 12.2 % (11.5-14.5)
[2018-10-08 11:14] LABS: ANION GAP 9 mmol/L (8-16); CALCIUM, TOTAL 8.7 mg/dL (8.8-10.5); CARBON DIOXIDE 29 mmol/L (22-29); CHLORIDE 97 mmol/L (98-107); CREATININE 0.64 mg/dL (0.60-1.30); GLOMERULAR FILTR. RATE CALC > 60 mL/min (>60); GLUCOSE,RANDOM 268 mg/dL (70-110); POTASSIUM 3.4 mmol/L (3.5-5.1); SODIUM SERUM 135 mmol/L (136-145); UREA NITROGEN, BLOOD 5 mg/dL (7-18)
[2018-10-08 11:31] LABS: ALANINE AMINOTRANSFERASE 27 U/L (12-78); ALBUMIN 2.9 g/dL (3.4-5.0); ALKALINE PHOSPHATASE 89 U/L (46-116); ASPARTATE AMINOTRANSFERASE 28 U/L (15-37); BILIRUBIN,TOTAL 0.5 mg/dL (0.1-1.0); HCG,QUANTITATIVE < 1 mIU/mL (0-6); TOTAL PROTEIN, SERUM 7.1 g/dL (6.4-8.2)
[2018-10-08 11:34] LABS: GLUCOSE,POINT OF CARE 250 MG/DL (70-110)
[2018-10-08 11:34] LABS: ACETONE,BLOOD NEGATIVE (NEGATIVE)
[2018-10-08 14:15] VITALS: BP 115/75
== END 2018-10-08 14:17 | disposition home or self-care (01) ==
LOC: EMS 09:07
DX: L02.31 Cutaneous abscess of buttock (principal); E11.65 Type 2 diabetes mellitus with hyperglycemia; Z79.4 Long term (current) use of insulin; Z79.899 Other long term (current) drug therapy
CPT/HCPCS: 10060; 36415; 80053; 82009; 82962; 84702; 85025; 87040; 96372; 96374; 96375; 99283; J0696; J1815; J1885; J2405; J3490; J7060

== ENCOUNTER 2019-10-29 19:00 | Inpatient (IN) | payer MEDICAID ==
[~2019-10-29] VITALS: Ht 185.4 cm; Wt 53.4 kg
[2019-10-29] MEDS ORDERED: INSU100I26 SQ (19:04)
[2019-10-29] MEDS ORDERED: SODIUM CHLORIDE 0.9% 1,750 ML IV ONE (19:20)
[2019-10-29] MEDS ORDERED: INSU100V SQ (19:28)
[2019-10-29] MEDS ORDERED: 0.9% SODIUM CHLORIDE 10 ML SYRINGE IVP PRN (19:30)
[2019-10-29] MEDS ORDERED: ONDANSETRON HCL 4 MG/2 ML VIAL IVP ONE ×2 (19:30→21:45)
[2019-10-29] MEDS ORDERED: FentaNYL CITRATE-PF 100 MCG/2 ML VIAL IVP ONE (19:30)
[2019-10-29 20:45] LABS: BASOPHILS % (AUTO) 0.5 % (0.0-2.0); EOSINOPHILS % (AUTO) 0 % (1.0-6.0); HEMATOCRIT 41.6 % (36-46); HEMOGLOBIN 14.1 g/dL (12.0-16.0); LYMPHOCYTES # (AUTO) 0.7 K/uL (1.0-4.8); LYMPHOCYTES % (AUTO) 4.1 % (22.0-44.0); MEAN CORPUSCULAR HEMOGLOBIN 29.9 pg (26.0-34.0); MEAN CORPUSCULAR HGB CONC 33.9 G/dL (31.0-37.0); MEAN CORPUSCULAR VOLUME 88 fL (80-100); MONOCYTES # (AUTO) 0.5 K/uL (0.1-1.0); NEUTROPHILS # (AUTO) 15.9 K/uL (1.8-7.7); PLATELET COUNT (AUTO) 505 K/uL (150-450); RED BLOOD CELL COUNT(AUTO) 4.72 MIL/uL (4.00-5.20); RED CELL DISTRIBUTION WIDTH 12.3 % (11.5-14.5)
[2019-10-29 20:49] LABS: ABG A-A DIFF O2 14.9 mmHg (10-20.0); ABG BASE EXCESS -5.6 mmol/L (-2.0-3.0); ABG CARBOXYHEMOGLOBIN 4.3 % (0.0-1.5); ABG HCO3 20.1 mmol/L (22.0-26.0); ABG METHEMOGLOBIN 0.2 % (0.0-1.5); ABG OXYGEN CONTENT 17.3 mL/dL (15.0-23.0); ABG OXYGEN SATURATION 95.8 % (95.0-98.0); ABG OXYHEMOGLOBIN 91.5 % (94.0-100.0); ABG PCO2 42 mmHg (35-45); ABG PH 7.309 (7.350-7.450); ABG TOTAL HEMOGLOBIN 13.4 G/dL (12.0-18.0); PO2, ARTERIAL BG 84.6 mmHg (92.0-100.0); SITE, BLOOD GAS RT BRACHIAL; SOURCE, BLOOD GAS ARTERIAL; TEMPERATURE, FAHRENHEIT, BG 98.5 FAHREN (96.0-98.6)
[2019-10-29 20:49] LABS: NEUTROPHILS % (AUTO) 92.4 % (40.0-70.0)
[2019-10-29 21:07] LABS: LACTIC ACID 2.2 mmol/L (0.4-2.0)
[2019-10-29 21:08] LABS: ALANINE AMINOTRANSFERASE 14 U/L (12-78); ALBUMIN 3.6 g/dL (3.4-5.0); ALKALINE PHOSPHATASE 117 U/L (46-116); ANION GAP 16 mmol/L (8-16); ASPARTATE AMINOTRANSFERASE 13 U/L (15-37); BILIRUBIN,TOTAL 0.8 mg/dL (0.1-1.0); CALCIUM, TOTAL 9.9 mg/dL (8.8-10.5); CARBON DIOXIDE 24 mmol/L (22-29); CHLORIDE 91 mmol/L (98-107); CREATININE 1.04 mg/dL (0.60-1.30); GLOMERULAR FILTR. RATE CALC > 60 mL/min (>60); HCG,QUANTITATIVE < 1 mIU/mL (0-6); PLATELET MORPHOLOGY COMMENT GIANT PLTS PRESENT; POTASSIUM 4.5 mmol/L (3.5-5.1); SODIUM SERUM 131 mmol/L (136-145); TOTAL PROTEIN, SERUM 8.6 g/dL (6.4-8.2); UREA NITROGEN, BLOOD 15 mg/dL (7-18)
[2019-10-29 21:09] LABS: GLUCOSE,RANDOM 422 mg/dL (70-110)
[2019-10-29] MEDS ORDERED: INSULIN REGULAR, HUMAN 100 UNITS/ML IVP ONE (22:00)
[2019-10-29 22:30] LABS: GLUCOSE,POINT OF CARE 343 MG/DL (70-110)
[2019-10-29] MEDS ORDERED: PIPERACILLIN/TAZO 3.375 GM/D5W 50 ML IV ONE (22:30)
[2019-10-29] MEDS ORDERED: IOVERSOL 320 MG/ML 100 ML VIAL ONE (22:30)
[2019-10-29] MEDS ORDERED: SODIUM CHLORIDE 0.9% 100 ML ONE (22:30)
[2019-10-29 22:39] LABS: APPEARANCE,URINE CLEAR (CLEAR); BILIRUBIN,URINE NEGATIVE (NEGATIVE); GLUCOSE, URINE (UA) >=1000 mg/dL (NEGATIVE); KETONES,URINE >=80 mg/dL (NEGATIVE); LEUKOCYTE ESTERASE ,URINE NEGATIVE (NEGATIVE); NITRATE,URINE NEGATIVE (NEGATIVE); OCCULT BLOOD,URINE MODERATE (NEGATIVE); PROTEIN,URINE NEGATIVE (NEGATIVE); UROBILINOGEN,URINE 0.2 mg/dL (<=1.0)
[2019-10-29] MEDS ORDERED: MORPHINE SULFATE 4 MG/ML SYRINGE IVP ONE (22:45)
[2019-10-29 22:46] LABS: BACTERIA,URINE Few /HPF (None Seen); SQUAMOUS EPITHELIAL CELL,UR Few /LPF (None Seen)
[2019-10-29] MEDS ORDERED: PROCHLORPERAZINE EDISYLATE 5 MG/ML 2 ML VIAL IVP ONE (23:00)
[2019-10-29] MEDS ORDERED: DEXTROSE 50%-WATER 25 GM/50 ML SYRINGE IVP PRN (23:15)
[2019-10-29] MEDS ORDERED: BISACODYL 10 MG RECTAL RECTAL SUPPOSITORY PR PRN (23:15)
[2019-10-29] MEDS ORDERED: SODIUM CHLORIDE 0.9% 1,000 ML IV ONE (23:15)
[2019-10-29] MEDS ORDERED: ACETAMINOPHEN 325 MG TABLET PO PRN (23:15)
[2019-10-29] MEDS ORDERED: ONDANSETRON HCL 4 MG/2 ML VIAL IVP PRN (23:15)
[2019-10-29] MEDS ORDERED: ZOLPIDEM TARTRATE 5 MG TABLET PO PRN (23:15)
[2019-10-29] MEDS ORDERED: MAGNESIUM HYDROXIDE SUSPENSION 30 ML UDCUP PO PRN (23:15)
[2019-10-30] MEDS ORDERED: SODIUM CHLORIDE 0.9% 1,000 ML IV ONE (01:00)
[2019-10-30 01:18] LABS: ANION GAP 14 mmol/L (8-16); CALCIUM, TOTAL 8.4 mg/dL (8.8-10.5); CARBON DIOXIDE 23 mmol/L (22-29); CHLORIDE 98 mmol/L (98-107); CREATININE 0.77 mg/dL (0.60-1.30); GLOMERULAR FILTR. RATE CALC > 60 mL/min (>60); GLUCOSE,RANDOM 330 mg/dL (70-110); POTASSIUM 4.5 mmol/L (3.5-5.1); SODIUM SERUM 135 mmol/L (136-145); UREA NITROGEN, BLOOD 14 mg/dL (7-18)
[2019-10-30 01:28] LABS: LACTIC ACID 1.1 mmol/L (0.4-2.0)
[2019-10-30] MEDS ORDERED: INSULIN REGULAR, HUMAN 100 UNITS/ML IVP ONE (01:45)
[2019-10-30 01:48] LABS: GLUCOSE,POINT OF CARE 318 MG/DL (70-110)
[2019-10-30] MEDS ORDERED: CALCIUM GLUCONATE 100 MG/ML 10 ML IVP ONE (03:15)
[2019-10-30] MEDS ORDERED: CALCIUM GLUCONATE 1,000 MG in DEXTROSE 5%-WATER 50 ML IV ONE (04:00)
[2019-10-30] MEDS ORDERED: CefTRIAXone 1 GM/DEXTROSE 50 ML IV ONE (05:00)
[2019-10-30 05:42] LABS: BASOPHILS % (AUTO) 0.3 % (0.0-2.0); EOSINOPHILS % (AUTO) 0 % (1.0-6.0); HEMATOCRIT 35.3 % (36-46); LYMPHOCYTES # (AUTO) 1.5 K/uL (1.0-4.8); LYMPHOCYTES % (AUTO) 12.1 % (22.0-44.0); MEAN CORPUSCULAR HEMOGLOBIN 29.7 pg (26.0-34.0); MEAN CORPUSCULAR VOLUME 87 fL (80-100); MONOCYTES # (AUTO) 0.8 K/uL (0.1-1.0); MONOCYTES % (AUTO) 6.2 % (2.0-9.0); NEUTROPHILS # (AUTO) 10.4 K/uL (1.8-7.7); NEUTROPHILS % (AUTO) 81.4 % (40.0-70.0); PLATELET COUNT (AUTO) 413 K/uL (150-450); RED BLOOD CELL COUNT(AUTO) 4.04 MIL/uL (4.00-5.20); RED CELL DISTRIBUTION WIDTH 12.4 % (11.5-14.5)
[2019-10-30 06:01] LABS: ANION GAP 16 mmol/L (8-16); CALCIUM, TOTAL 9.6 mg/dL (8.8-10.5); CARBON DIOXIDE 20 mmol/L (22-29); CHLORIDE 98 mmol/L (98-107); CREATININE 0.73 mg/dL (0.60-1.30); GLOMERULAR FILTR. RATE CALC > 60 mL/min (>60); GLUCOSE,RANDOM 289 mg/dL (70-110); POTASSIUM 4.6 mmol/L (3.5-5.1); SODIUM SERUM 134 mmol/L (136-145); UREA NITROGEN, BLOOD 11 mg/dL (7-18)
[2019-10-30] MEDS: HEPARIN SODIUM,PORCINE 5,000 UNITS/ML VIAL SQ SCH ×3 (08:00→20:29)
[2019-10-30 08:31] LABS: GLUCOSE,POINT OF CARE 217 MG/DL (70-110)
[2019-10-30] MEDS: INSULIN LISPRO 100 UNITS/ML SQ PRN ×2 (08:32→20:34)
[2019-10-30] MEDS: MORPHINE SULFATE 2 MG/ML SYRINGE IVP PRN ×4 (08:33→23:47)
[2019-10-30] MEDS: PANTOPRAZOLE SODIUM 40 MG DR TABLET PO SCH (08:33)
[2019-10-30] MEDS: INSULIN GLARGINE,HUM.REC.ANLOG 100 UNITS/ML SQ SCH ×2 (09:00→20:32)
[2019-10-30] MEDS ORDERED: DOCUSATE SODIUM 100 MG CAPSULE PO SCH (09:00)
[2019-10-30 12:18] LABS: GLUCOSE,POINT OF CARE 175 MG/DL (70-110)
[2019-10-30] MEDS ORDERED: DOCUSATE SODIUM 100 MG CAPSULE PO PRN (12:30)
[2019-10-30] MEDS: CefTRIAXone 1 GM/DEXTROSE 50 ML IV SCH (12:47)
[2019-10-30] MEDS: SODIUM CHLORIDE 0.9% 1,000 ML IV SCH (12:48)
[2019-10-30] MEDS ORDERED: ONDANSETRON HCL 4 MG/2 ML VIAL IVP ONE ×2 (13:15→14:45)
[2019-10-30] MEDS ORDERED: ONDANSETRON HCL 4 MG/2 ML VIAL IM ONE (14:30)
[2019-10-30 16:34] LABS: GLUCOSE,POINT OF CARE 270 MG/DL (70-110)
[2019-10-30] MEDS: ONDANSETRON HCL 4 MG/2 ML VIAL IVP PRN ×2 (17:07→20:29)
[2019-10-30 18:30] VITALS: BP 106/76
[2019-10-30 23:15] VITALS: BP 111/69
[2019-10-30 23:55] LABS: GLUCOMETER DEV NAME(LOC) 5N.1; GLUCOSE,POINT OF CARE 269 MG/DL (70-110)
[2019-10-31] MEDS: ONDANSETRON HCL 4 MG/2 ML VIAL IVP PRN ×3 (04:09→10:46)
[2019-10-31 06:12] VITALS: BP 126/86
[2019-10-31] MEDS: MORPHINE SULFATE 2 MG/ML SYRINGE IVP PRN ×3 (06:13→18:25)
[2019-10-31] MEDS: SODIUM CHLORIDE 0.9% 1,000 ML IV SCH ×3 (06:17→23:43)
[2019-10-31 06:48] LABS: BASOPHILS % (AUTO) 0.4 % (0.0-2.0); EOSINOPHILS % (AUTO) 0.1 % (1.0-6.0); HEMATOCRIT 35.7 % (36-46); HEMOGLOBIN 12.3 g/dL (12.0-16.0); LYMPHOCYTES # (AUTO) 1.7 K/uL (1.0-4.8); LYMPHOCYTES % (AUTO) 15.9 % (22.0-44.0); MEAN CORPUSCULAR HEMOGLOBIN 29.7 pg (26.0-34.0); MEAN CORPUSCULAR HGB CONC 34.5 G/dL (31.0-37.0); MEAN CORPUSCULAR VOLUME 86 fL (80-100); MONOCYTES # (AUTO) 0.8 K/uL (0.1-1.0); MONOCYTES % (AUTO) 7.8 % (2.0-9.0); NEUTROPHILS # (AUTO) 8.2 K/uL (1.8-7.7); NEUTROPHILS % (AUTO) 75.8 % (40.0-70.0); PLATELET COUNT (AUTO) 451 K/uL (150-450); RED BLOOD CELL COUNT(AUTO) 4.15 MIL/uL (4.00-5.20); RED CELL DISTRIBUTION WIDTH 12.3 % (11.5-14.5)
[2019-10-31 06:59] LABS: ANION GAP 13 mmol/L (8-16); CARBON DIOXIDE 22 mmol/L (22-29); CHLORIDE 100 mmol/L (98-107); CREATININE 0.74 mg/dL (0.60-1.30); GLOMERULAR FILTR. RATE CALC > 60 mL/min (>60); GLUCOSE,RANDOM 170 mg/dL (70-110); POTASSIUM 3.7 mmol/L (3.5-5.1); SODIUM SERUM 135 mmol/L (136-145); UREA NITROGEN, BLOOD 9 mg/dL (7-18)
[2019-10-31 07:27] LABS: HEMOGLOBIN A1C 11.3 % (4.5-6.2)
[2019-10-31 07:44] VITALS: BP 110/74
[2019-10-31] MEDS: HEPARIN SODIUM,PORCINE 5,000 UNITS/ML VIAL SQ SCH ×2 (09:00→20:22)
[2019-10-31] MEDS: INSULIN GLARGINE,HUM.REC.ANLOG 100 UNITS/ML SQ SCH ×2 (09:00→20:28)
[2019-10-31] MEDS: PANTOPRAZOLE SODIUM 40 MG DR TABLET PO SCH (09:00)
[2019-10-31] MEDS ORDERED: LORazepam 2 MG/ML VIAL IM PRN (10:45)
[2019-10-31] MEDS: CefTRIAXone 1 GM/DEXTROSE 50 ML IV SCH (13:27)
[2019-10-31 17:11] VITALS: BP 108/57
[2019-10-31] MEDS: METOCLOPRAMIDE HCL 5 MG/ML 2 ML VIAL IVP PRN (18:19)
[2019-10-31] MEDS: INSULIN LISPRO 100 UNITS/ML SQ PRN (20:29)
[2019-10-31 20:42] VITALS: BP 99/67
[2019-10-31] MEDS ORDERED: SENNA 187 MG TABLET PO SCH (21:00)
[2019-10-31 22:35] LABS: GLUCOMETER DEV NAME(LOC) 5N.1; GLUCOSE,POINT OF CARE 205 MG/DL (70-110)
[2019-10-31 22:35] LABS: GLUCOMETER DEV NAME(LOC) 5N.1; GLUCOSE,POINT OF CARE 262 MG/DL (70-110)
[2019-10-31 22:36] LABS: GLUCOMETER DEV NAME(LOC) 5N.1; GLUCOSE,POINT OF CARE 185 MG/DL (70-110)
[2019-11-01 00:10] VITALS: BP 101/68
[2019-11-01 05:00] VITALS: BP 105/72
[2019-11-01 05:23] LABS: GLUCOMETER DEV NAME(LOC) 5N.2; GLUCOSE,POINT OF CARE 249 MG/DL (70-110)
[2019-11-01] MEDS: INSULIN LISPRO 100 UNITS/ML SQ PRN ×2 (05:27→12:36)
[2019-11-01] MEDS: MORPHINE SULFATE 2 MG/ML SYRINGE IVP PRN (06:01)
[2019-11-01] MEDS: ONDANSETRON HCL 4 MG/2 ML VIAL IVP PRN (06:01)
[2019-11-01 06:55] LABS: BASOPHILS % (AUTO) 0.5 % (0.0-2.0); EOSINOPHILS % (AUTO) 0.7 % (1.0-6.0); HEMATOCRIT 37.9 % (36-46); HEMOGLOBIN 13.3 g/dL (12.0-16.0); LYMPHOCYTES % (AUTO) 22.7 % (22.0-44.0); MEAN CORPUSCULAR HEMOGLOBIN 30.5 pg (26.0-34.0); MEAN CORPUSCULAR HGB CONC 35.1 G/dL (31.0-37.0); MEAN CORPUSCULAR VOLUME 87 fL (80-100); MONOCYTES # (AUTO) 0.9 K/uL (0.1-1.0); MONOCYTES % (AUTO) 9.7 % (2.0-9.0); NEUTROPHILS % (AUTO) 66.4 % (40.0-70.0); PLATELET COUNT (AUTO) 468 K/uL (150-450); RED BLOOD CELL COUNT(AUTO) 4.36 MIL/uL (4.00-5.20); RED CELL DISTRIBUTION WIDTH 12.1 % (11.5-14.5)
[2019-11-01 06:56] LABS: ANION GAP 10 mmol/L (8-16); CALCIUM, TOTAL 8.9 mg/dL (8.8-10.5); CARBON DIOXIDE 26 mmol/L (22-29); CHLORIDE 102 mmol/L (98-107); GLOMERULAR FILTR. RATE CALC > 60 mL/min (>60); GLUCOSE,RANDOM 150 mg/dL (70-110); POTASSIUM 3.5 mmol/L (3.5-5.1); SODIUM SERUM 138 mmol/L (136-145); UREA NITROGEN, BLOOD 7 mg/dL (7-18)
[2019-11-01 07:02] LABS: GLUCOMETER DEV NAME(LOC) 5N.1; GLUCOSE,POINT OF CARE 158 MG/DL (70-110)
[2019-11-01 07:30] VITALS: BP 118/73
[2019-11-01] MEDS: HEPARIN SODIUM,PORCINE 5,000 UNITS/ML VIAL SQ SCH (08:48)
[2019-11-01] MEDS: PANTOPRAZOLE SODIUM 40 MG DR TABLET PO SCH (08:48)
[2019-11-01] MEDS: HYDROCODONE/ACETAMINOPHEN 5-325 MG TABLET PO PRN ×2 (08:59→12:45)
[2019-11-01] MEDS: METOCLOPRAMIDE HCL 5 MG/ML 2 ML VIAL IVP PRN ×2 (09:01→12:45)
[2019-11-01] MEDS: INSULIN GLARGINE,HUM.REC.ANLOG 100 UNITS/ML SQ SCH (09:03)
[2019-11-01] MEDS: SODIUM CHLORIDE 0.9% 1,000 ML IV SCH (09:33)
[2019-11-01] MEDS ORDERED: LEVO500 PO (10:12)
[2019-11-01] MEDS ORDERED: METR250T PO (10:12)
[2019-11-01] MEDS ORDERED: METO5TAB87 PO (10:12)
[2019-11-01 11:57] VITALS: BP 112/71
[2019-11-01] MEDS: CefTRIAXone 1 GM/DEXTROSE 50 ML IV SCH (12:54)
[2019-11-01 15:42] VITALS: BP 107/68
[2019-11-01 20:06] LABS: GLUCOMETER DEV NAME(LOC) 5N.1; GLUCOSE,POINT OF CARE 172 MG/DL (70-110)
== END 2019-11-01 15:35 | disposition home or self-care (01) | DRG 720 ==
LOC: EMS 19:03 → 5N 10-30 16:34
PROVIDERS: ADMIT Internal Medicine; ATTEND Internal Medicine
DX: A41.9 Sepsis, unspecified organism (principal); E43 Unspecified severe protein-calorie malnutrition; E10.65 Type 1 diabetes mellitus with hyperglycemia; N39.0 Urinary tract infection, site not specified; K52.9 Noninfective gastroenteritis and colitis, unspecified; E86.0 Dehydration; N12 Tubulo-interstitial nephritis, not specified as acute or chronic
CPT/HCPCS: 36600; 51701; 74018; 74177; 82805; 83036; 83605; 84145; 87040; 87086; 93005; J0610; J0696; J0780; J1644; J1815; J2060; J2270; J2405; J2543; J2765; J3010; J7030; J7050; J7060

== ENCOUNTER 2019-11-02 10:25 | Emergency (ER) | payer MEDICAID ==
[~2019-11-02] VITALS: Ht 185.4 cm; Wt 52.3 kg
[~2019-11-02 10:25] MED LIST changes: +INSU100I26 SQ; +INSU100V SQ; +LEVO500 PO; +METO5TAB87 PO; +METR250T PO
[2019-11-02 10:51] LABS: GLUCOSE,POINT OF CARE 251 MG/DL (70-110)
[2019-11-02 11:00] LABS: BASOPHILS % (AUTO) 0.6 % (0.0-2.0); EOSINOPHILS % (AUTO) 0.1 % (1.0-6.0); HEMATOCRIT 39.5 % (36-46); HEMOGLOBIN 13.8 g/dL (12.0-16.0); LYMPHOCYTES # (AUTO) 0.8 K/uL (1.0-4.8); MEAN CORPUSCULAR HEMOGLOBIN 30.4 pg (26.0-34.0); MEAN CORPUSCULAR HGB CONC 34.9 G/dL (31.0-37.0); MEAN CORPUSCULAR VOLUME 87 fL (80-100); MONOCYTES # (AUTO) 0.4 K/uL (0.1-1.0); MONOCYTES % (AUTO) 6.5 % (2.0-9.0); NEUTROPHILS # (AUTO) 5.3 K/uL (1.8-7.7); NEUTROPHILS % (AUTO) 80.8 % (40.0-70.0); PLATELET COUNT (AUTO) 515 K/uL (150-450); RED BLOOD CELL COUNT(AUTO) 4.53 MIL/uL (4.00-5.20); RED CELL DISTRIBUTION WIDTH 12.3 % (11.5-14.5)
[2019-11-02 11:09] LABS: ANION GAP 13 mmol/L (8-16); CALCIUM, TOTAL 9.1 mg/dL (8.8-10.5); CARBON DIOXIDE 26 mmol/L (22-29); CHLORIDE 95 mmol/L (98-107); CREATININE 0.74 mg/dL (0.60-1.30); GLOMERULAR FILTR. RATE CALC > 60 mL/min (>60); GLUCOSE,RANDOM 272 mg/dL (70-110); POTASSIUM 3.6 mmol/L (3.5-5.1); SODIUM SERUM 134 mmol/L (136-145)
[2019-11-02 11:23] LABS: ALANINE AMINOTRANSFERASE 13 U/L (12-78); ALBUMIN 3.5 g/dL (3.4-5.0); ALKALINE PHOSPHATASE 92 U/L (46-116); ASPARTATE AMINOTRANSFERASE 15 U/L (15-37); BILIRUBIN,TOTAL 0.5 mg/dL (0.1-1.0); HCG,QUANTITATIVE < 1 mIU/mL (0-6); LIPASE 129 U/L (73-393); TOTAL PROTEIN, SERUM 7.7 g/dL (6.4-8.2); UREA NITROGEN, BLOOD 3 mg/dL (7-18)
[2019-11-02] MEDS ORDERED: KETOROLAC TROMETHAMINE 30 MG/ML VIAL IVP ONE (11:45)
[2019-11-02] MEDS ORDERED: ACETAMINOPHEN 500 MG TABLET PO ONE (11:45)
[2019-11-02] MEDS ORDERED: ONDANSETRON HCL 4 MG/2 ML VIAL IVP ONE (11:45)
[2019-11-02] MEDS ORDERED: SODIUM CHLORIDE 0.9% 1,000 ML IV ONE ×2 (11:45→12:45)
[2019-11-02] MEDS ORDERED: SODIUM CHLORIDE 0.9% 100 ML ONE (11:52)
[2019-11-02] MEDS ORDERED: IOVERSOL 350 MG/ML 100 ML VIAL ONE (11:52)
[2019-11-02 12:35] LABS: APPEARANCE,URINE CLEAR (CLEAR); BILIRUBIN,URINE NEGATIVE (NEGATIVE); GLUCOSE, URINE (UA) >=1000 mg/dL (NEGATIVE); KETONES,URINE >=80 mg/dL (NEGATIVE); LEUKOCYTE ESTERASE ,URINE NEGATIVE (NEGATIVE); NITRATE,URINE NEGATIVE (NEGATIVE); OCCULT BLOOD,URINE TRACE (NEGATIVE); PROTEIN,URINE NEGATIVE (NEGATIVE); UROBILINOGEN,URINE 0.2 mg/dL (<=1.0)
[2019-11-02 12:38] LABS: BACTERIA,URINE None Seen /HPF (None Seen); RBC,URINE 0-2 /HPF (0-2); WBC,URINE 0-2 /HPF (0-5)
[2019-11-02] MEDS ORDERED: MORPHINE SULFATE 2 MG/ML SYRINGE IVP ONE (13:00)
[2019-11-02] MEDS ORDERED: MAG HYDROX/AL HYDROX/SIMETH 30 ML SUSP UDCUP PO ONE (13:00)
[2019-11-02] MEDS ORDERED: FAMOTIDINE 10 MG/ML 2 ML VIAL IVP ONE (13:00)
[2019-11-02 14:06] LABS: GLUCOSE,POINT OF CARE 201 MG/DL (70-110)
[2019-11-02 15:24] VITALS: BP 111/75
== END 2019-11-02 15:24 | disposition home or self-care (01) ==
LOC: EMS 10:27
DX: R10.13 Epigastric pain (principal); R11.2 Nausea with vomiting, unspecified; E11.9 Type 2 diabetes mellitus without complications; Z79.4 Long term (current) use of insulin; Z79.899 Other long term (current) drug therapy
CPT/HCPCS: 36415; 74177; 80053; 81001; 82962; 83690; 84702; 85025; 96361; 96374; 96375; 99285; J1885; J2270; J2405; J3490; J7030; J7050; Q9967

== ENCOUNTER 2020-01-30 12:02 | Emergency (ER) | payer MEDICAID ==
[~2020-01-30] VITALS: Ht 185.4 cm; Wt 50.0 kg
[~2020-01-30 12:02] MED LIST changes: -INSLAN SQ; -INSU100C3 SQ; +LEVO-72 PO; -LEVO500 PO
[2020-01-30 12:21] LABS: GLUCOSE,POINT OF CARE 341 MG/DL (70-110)
[2020-01-30 12:50] LABS: BASOPHILS % (AUTO) 0.4 % (0.0-2.0); EOSINOPHILS % (AUTO) 0.1 % (1.0-6.0); HEMATOCRIT 45.4 % (36-46); HEMOGLOBIN 15.3 g/dL (12.0-16.0); LYMPHOCYTES # (AUTO) 1.3 K/uL (1.0-4.8); LYMPHOCYTES % (AUTO) 14.4 % (22.0-44.0); MEAN CORPUSCULAR HEMOGLOBIN 29.7 pg (26.0-34.0); MEAN CORPUSCULAR HGB CONC 33.6 G/dL (31.0-37.0); MEAN CORPUSCULAR VOLUME 88 fL (80-100); MONOCYTES # (AUTO) 0.6 K/uL (0.1-1.0); MONOCYTES % (AUTO) 7.1 % (2.0-9.0); NEUTROPHILS # (AUTO) 6.8 K/uL (1.8-7.7); PLATELET COUNT (AUTO) 309 K/uL (150-450); RED BLOOD CELL COUNT(AUTO) 5.14 MIL/uL (4.00-5.20); RED CELL DISTRIBUTION WIDTH 12.9 % (11.5-14.5)
[2020-01-30 13:01] LABS: ANION GAP 14 mmol/L (8-16); CALCIUM, TOTAL 10.4 mg/dL (8.8-10.5); CARBON DIOXIDE 27 mmol/L (22-29); CHLORIDE 93 mmol/L (98-107); CREATININE 0.89 mg/dL (0.60-1.30); GLOMERULAR FILTR. RATE CALC > 60 mL/min (>60); GLUCOSE,RANDOM 316 mg/dL (70-110); SODIUM SERUM 134 mmol/L (136-145); UREA NITROGEN, BLOOD 18 mg/dL (7-18)
[2020-01-30 13:14] LABS: ALANINE AMINOTRANSFERASE 24 U/L (12-78); ALBUMIN 4.5 g/dL (3.4-5.0); ALKALINE PHOSPHATASE 57 U/L (46-116); ASPARTATE AMINOTRANSFERASE 17 U/L (15-37); BILIRUBIN,TOTAL 0.9 mg/dL (0.1-1.0); HCG,QUANTITATIVE < 1 mIU/mL (0-6); LIPASE 96 U/L (73-393); TOTAL PROTEIN, SERUM 8.5 g/dL (6.4-8.2)
[2020-01-30] MEDS ORDERED: FAMOTIDINE 10 MG/ML 2 ML VIAL IVP ONE (13:15)
[2020-01-30] MEDS ORDERED: MORPHINE SULFATE 4 MG/ML SYRINGE IVP ONE (13:15)
[2020-01-30] MEDS ORDERED: ONDANSETRON HCL 4 MG/2 ML VIAL IVP ONE (13:15)
[2020-01-30] MEDS ORDERED: SODIUM CHLORIDE 0.9% 1,000 ML IV ONE ×2 (13:15→14:15)
[2020-01-30 16:02] VITALS: BP 102/66
== END 2020-01-30 16:00 | disposition home or self-care (01) ==
LOC: EMS 12:02
DX: R11.2 Nausea with vomiting, unspecified (principal); R10.13 Epigastric pain; E11.65 Type 2 diabetes mellitus with hyperglycemia; Z79.4 Long term (current) use of insulin; Z79.899 Other long term (current) drug therapy
CPT/HCPCS: 76705; 80053; 82962; 83690; 84702; 85025; 93005; 96361; 96374; 96375; 99285; J2270; J2405; J3490; J7030

== ENCOUNTER 2020-01-31 13:35 | Emergency (ER) | payer MEDICAID ==
[~2020-01-31] VITALS: Ht 185.4 cm; Wt 59.1 kg
[2020-01-31 14:08] LABS: GLUCOSE,POINT OF CARE 280 MG/DL (70-110)
[2020-01-31] MEDS ORDERED: IBUPROFEN 600 MG TABLET PO ONE (14:30)
[2020-01-31] MEDS ORDERED: SODIUM CHLORIDE 0.9% 1,000 ML IV ONE (14:30)
[2020-01-31] MEDS ORDERED: DICYCLOMINE HCL 20 MG TABLET PO ONE (14:30)
[2020-01-31 14:35] LABS: BASOPHILS % (AUTO) 0.6 % (0.0-2.0); EOSINOPHILS % (AUTO) 0.5 % (1.0-6.0); HEMATOCRIT 42.2 % (36-46); HEMOGLOBIN 14.3 g/dL (12.0-16.0); LYMPHOCYTES # (AUTO) 1.4 K/uL (1.0-4.8); LYMPHOCYTES % (AUTO) 23.7 % (22.0-44.0); MEAN CORPUSCULAR HEMOGLOBIN 29.9 pg (26.0-34.0); MEAN CORPUSCULAR HGB CONC 33.8 G/dL (31.0-37.0); MEAN CORPUSCULAR VOLUME 88 fL (80-100); MONOCYTES # (AUTO) 0.5 K/uL (0.1-1.0); MONOCYTES % (AUTO) 8.6 % (2.0-9.0); NEUTROPHILS # (AUTO) 4.1 K/uL (1.8-7.7); NEUTROPHILS % (AUTO) 66.6 % (40.0-70.0); PLATELET COUNT (AUTO) 289 K/uL (150-450); RED BLOOD CELL COUNT(AUTO) 4.78 MIL/uL (4.00-5.20); RED CELL DISTRIBUTION WIDTH 12.6 % (11.5-14.5)
[2020-01-31 14:45] LABS: ANION GAP 6 mmol/L (8-16); CALCIUM, TOTAL 9.1 mg/dL (8.8-10.5); CARBON DIOXIDE 31 mmol/L (22-29); CHLORIDE 97 mmol/L (98-107); CREATININE 0.77 mg/dL (0.60-1.30); GLOMERULAR FILTR. RATE CALC > 60 mL/min (>60); GLUCOSE,RANDOM 274 mg/dL (70-110); POTASSIUM 3.5 mmol/L (3.5-5.1); SODIUM SERUM 134 mmol/L (136-145); UREA NITROGEN, BLOOD 6 mg/dL (7-18)
[2020-01-31 14:56] LABS: ALANINE AMINOTRANSFERASE 22 U/L (12-78); ALKALINE PHOSPHATASE 53 U/L (46-116); ASPARTATE AMINOTRANSFERASE 13 U/L (15-37); BILIRUBIN,TOTAL 1.1 mg/dL (0.1-1.0); HCG,QUANTITATIVE < 1 mIU/mL (0-6); LIPASE 110 U/L (73-393); TOTAL PROTEIN, SERUM 7.5 g/dL (6.4-8.2)
[2020-01-31] MEDS ORDERED: IOVERSOL 350 MG/ML 100 ML VIAL ONE (15:05)
[2020-01-31] MEDS ORDERED: SODIUM CHLORIDE 0.9% 100 ML ONE (15:05)
[2020-01-31] MEDS ORDERED: METOCLOPRAMIDE HCL 5 MG/ML 2 ML VIAL IVP ONE (16:00)
[2020-01-31] MEDS ORDERED: DiphenhydrAMINE HCL 50 MG/ML VIAL IVP ONE (16:00)
[2020-01-31] MEDS ORDERED: POTASSIUM CHLORIDE 20 MEQ ER TABLET PO ONE (19:00)
[2020-01-31 19:18] LABS: APPEARANCE,URINE CLEAR (CLEAR); BILIRUBIN,URINE NEGATIVE (NEGATIVE); GLUCOSE, URINE (UA) >=1000 mg/dL (NEGATIVE); KETONES,URINE >=80 mg/dL (NEGATIVE); LEUKOCYTE ESTERASE ,URINE NEGATIVE (NEGATIVE); NITRATE,URINE NEGATIVE (NEGATIVE); OCCULT BLOOD,URINE NEGATIVE (NEGATIVE); PH,URINE 6.5 (5.0-8.0); PROTEIN,URINE NEGATIVE (NEGATIVE); UROBILINOGEN,URINE 0.2 mg/dL (<=1.0)
[2020-01-31 19:24] LABS: BACTERIA,URINE Rare /HPF (None Seen); RBC,URINE 0-2 /HPF (0-2); SQUAMOUS EPITHELIAL CELL,UR Few /LPF (None Seen); WBC,URINE 0-2 /HPF (0-5)
[2020-01-31] MEDS ORDERED: ACETAMINOPHEN 325 MG TABLET PO ONE (20:30)
[2020-01-31 20:42] VITALS: BP 111/75
== END 2020-01-31 21:19 | disposition home or self-care (01) ==
LOC: EMS 13:38
DX: K29.70 Gastritis, unspecified, without bleeding (principal); R81 Glycosuria; E11.9 Type 2 diabetes mellitus without complications; Z79.4 Long term (current) use of insulin
CPT/HCPCS: 36415; 74177; 80053; 81001; 82009; 82962; 83690; 84702; 85025; 96361; 96374; 96375; 99285; J1200; J2765; J7030; J7050; Q9967

== ENCOUNTER 2020-10-31 05:47 | Emergency (ER) | payer MEDICAID ==
[~2020-10-31] VITALS: Ht 185.4 cm; Wt 66.4 kg
[~2020-10-31 05:47] MED LIST changes: -LEVO-72 PO; +METO-296 PO; -METO5TAB87 PO; -METR250T PO
[2020-10-31 06:44] LABS: BASOPHILS % (AUTO) 0.4 % (0.0-2.0); EOSINOPHILS % (AUTO) 0 % (1.0-6.0); HEMATOCRIT 40.3 % (36-46); HEMOGLOBIN 13.3 g/dL (12.0-16.0); LYMPHOCYTES # (AUTO) 0.5 K/uL (1.0-4.8); LYMPHOCYTES % (AUTO) 4.2 % (22.0-44.0); MEAN CORPUSCULAR HEMOGLOBIN 30.2 pg (26.0-34.0); MEAN CORPUSCULAR HGB CONC 33.1 G/dL (31.0-37.0); MEAN CORPUSCULAR VOLUME 91 fL (80-100); MONOCYTES # (AUTO) 0.2 K/uL (0.1-1.0); MONOCYTES % (AUTO) 1.6 % (2.0-9.0); NEUTROPHILS # (AUTO) 12.2 K/uL (1.8-7.7); PLATELET COUNT (AUTO) 327 K/uL (150-450); RED BLOOD CELL COUNT(AUTO) 4.41 MIL/uL (4.00-5.20); RED CELL DISTRIBUTION WIDTH 12.1 % (11.5-14.5)
[2020-10-31] MEDS ORDERED: FAMOTIDINE 10 MG/ML 2 ML VIAL IVP ONE (06:45)
[2020-10-31] MEDS ORDERED: ACETAMINOPHEN 500 MG TABLET PO ONE (06:45)
[2020-10-31] MEDS ORDERED: MORPHINE SULFATE 2 MG/ML SYRINGE IVP ONE (06:45)
[2020-10-31] MEDS ORDERED: SODIUM CHLORIDE 0.9% 1,000 ML IV ONE ×2 (06:45→07:15)
[2020-10-31] MEDS ORDERED: ONDANSETRON HCL 4 MG/2 ML VIAL IVP ONE (06:45)
[2020-10-31] MEDS ORDERED: MAG HYDROX/AL HYDROX/SIMETH 30 ML SUSP UDCUP PO ONE (06:45)
[2020-10-31 06:48] LABS: NEUTROPHILS % (AUTO) 93.8 % (40.0-70.0)
[2020-10-31 06:51] LABS: ANION GAP 12 mmol/L (8-16); CALCIUM, TOTAL 9.2 mg/dL (8.8-10.5); CARBON DIOXIDE 21 mmol/L (22-29); CHLORIDE 96 mmol/L (98-107); GLOMERULAR FILTR. RATE CALC > 60 mL/min (>60); GLUCOSE,RANDOM 357 mg/dL (70-110); POTASSIUM 4.7 mmol/L (3.5-5.1); SODIUM SERUM 129 mmol/L (136-145); UREA NITROGEN, BLOOD 15 mg/dL (7-18)
[2020-10-31 07:04] LABS: ALANINE AMINOTRANSFERASE 33 U/L (12-78); ALBUMIN 4.2 g/dL (3.4-5.0); ALKALINE PHOSPHATASE 76 U/L (46-116); ASPARTATE AMINOTRANSFERASE 18 U/L (15-37); BILIRUBIN,TOTAL 0.9 mg/dL (0.1-1.0); HCG,QUANTITATIVE < 1 mIU/mL (0-6); LIPASE 49 U/L (73-393); TOTAL PROTEIN, SERUM 8.1 g/dL (6.4-8.2)
[2020-10-31] MEDS ORDERED: INSULIN REGULAR, HUMAN 100 UNITS/ML IVP ONE (07:15)
[2020-10-31] MEDS ORDERED: METOCLOPRAMIDE HCL 5 MG/ML 2 ML VIAL IVP ONE (10:00)
[2020-10-31] MEDS ORDERED: DiphenhydrAMINE HCL 50 MG/ML VIAL IVP ONE (10:00)
[2020-10-31] MEDS ORDERED: SODIUM CHLORIDE 0.9% 250 ML IV ONE (11:51)
[2020-10-31 12:54] VITALS: BP 105/57
[2020-10-31 15:42] LABS: GLUCOSE,POINT OF CARE 219 MG/DL (70-110)
== END 2020-10-31 13:13 | disposition home or self-care (01) ==
LOC: EMS 05:48
DX: E11.65 Type 2 diabetes mellitus with hyperglycemia (principal); R11.2 Nausea with vomiting, unspecified; R10.13 Epigastric pain; Z79.4 Long term (current) use of insulin
CPT/HCPCS: 36415; 80053; 82962; 83690; 84702; 85025; 96361; 96374; 96375; 99284; J1200; J1815; J2270; J2405; J2765; J3490; J7030; J7050

== ENCOUNTER 2021-01-17 14:06 | Emergency (ER) | payer MEDICAID ==
[~2021-01-17] VITALS: Ht 175.3 cm; Wt 63.6 kg
[2021-01-17] MEDS ORDERED: METOCLOPRAMIDE HCL 5 MG/ML 2 ML VIAL IVP ONE (15:15)
[2021-01-17] MEDS ORDERED: SODIUM CHLORIDE 0.9% 1,000 ML IV ONE (15:15)
[2021-01-17 16:14] LABS: BASOPHILS % (AUTO) 0.2 % (0.0-2.0); EOSINOPHILS % (AUTO) 0.1 % (1.0-6.0); HEMATOCRIT 40.5 % (36-46); HEMOGLOBIN 13.7 g/dL (12.0-16.0); LYMPHOCYTES # (AUTO) 0.7 K/uL (1.0-4.8); LYMPHOCYTES % (AUTO) 8.5 % (22.0-44.0); MEAN CORPUSCULAR HEMOGLOBIN 30.9 pg (26.0-34.0); MEAN CORPUSCULAR HGB CONC 33.7 G/dL (31.0-37.0); MEAN CORPUSCULAR VOLUME 92 fL (80-100); MONOCYTES # (AUTO) 0.3 K/uL (0.1-1.0); MONOCYTES % (AUTO) 4.2 % (2.0-9.0); PLATELET COUNT (AUTO) 313 K/uL (150-450); RED BLOOD CELL COUNT(AUTO) 4.42 MIL/uL (4.00-5.20); RED CELL DISTRIBUTION WIDTH 12.7 % (11.5-14.5)
[2021-01-17 17:06] LABS: ANION GAP 14 mmol/L (8-16); CARBON DIOXIDE 23 mmol/L (22-29); CHLORIDE 99 mmol/L (98-107); CREATININE 0.76 mg/dL (0.60-1.30); GLOMERULAR FILTR. RATE CALC > 60 mL/min (>60); GLUCOSE,RANDOM 349 mg/dL (70-110); POTASSIUM 3.8 mmol/L (3.5-5.1); SODIUM SERUM 136 mmol/L (136-145); UREA NITROGEN, BLOOD 6 mg/dL (7-18)
[2021-01-17 17:18] LABS: ALANINE AMINOTRANSFERASE 29 U/L (12-78); ALBUMIN 4.1 g/dL (3.4-5.0); ALKALINE PHOSPHATASE 67 U/L (46-116); ASPARTATE AMINOTRANSFERASE 23 U/L (15-37); BILIRUBIN,TOTAL 0.5 mg/dL (0.1-1.0); HCG,QUANTITATIVE < 1 mIU/mL (0-6); TOTAL PROTEIN, SERUM 7.7 g/dL (6.4-8.2)
[2021-01-17] MEDS ORDERED: KETOROLAC TROMETHAMINE 30 MG/ML VIAL IVP ONE (17:30)
[2021-01-17] MEDS ORDERED: HALOPERIDOL LACTATE 5 MG/ML VIAL IVP ONE (18:30)
[2021-01-17 18:59] LABS: GLUCOSE,POINT OF CARE 272 MG/DL (70-110)
[2021-01-17 19:10] VITALS: BP 120/74
== END 2021-01-17 19:12 | disposition home or self-care (01) ==
LOC: EMS 14:11
DX: F12.188 Cannabis abuse with other cannabis-induced disorder (principal); R11.2 Nausea with vomiting, unspecified; Z20.822 Contact with and (suspected) exposure to COVID-19
CPT/HCPCS: 80053; 82962; 84702; 85025; 96361; 96374; 96375; 99284; J1630; J1885; J2765; J7030; 82948; 99285

== ENCOUNTER 2021-05-04 21:15 | Inpatient (IN) | payer MEDICAID ==
[~2021-05-04] VITALS: Ht 185.4 cm; Wt 59.0 kg
[~2021-05-04 21:15] MED LIST changes: +ONDA-104 PO
[2021-05-04] MEDS ORDERED: ONDANSETRON HCL 4 MG/2 ML VIAL IVP ONE (22:00)
[2021-05-04] MEDS ORDERED: MORPHINE SULFATE 2 MG/ML SYRINGE IVP ONE (22:00)
[2021-05-04] MEDS ORDERED: SODIUM CHLORIDE 0.9% 1,000 ML IV ONE (22:00)
[2021-05-04 22:16] LABS: ABG A-A DIFF O2 10.1 mmHg (10-20.0); ABG BASE EXCESS -5.4 mmol/L (-2.0-3.0); ABG CARBOXYHEMOGLOBIN 0.2 % (0.0-1.5); ABG HCO3 21.2 mmol/L (22.0-26.0); ABG METHEMOGLOBIN 0.2 % (0.0-1.5); ABG OXYGEN CONTENT 18.3 mL/dL (15.0-23.0); ABG OXYGEN SATURATION 97.8 % (95.0-98.0); ABG OXYHEMOGLOBIN 97.4 % (94.0-100.0); ABG PCO2 28 mmHg (35-45); ABG PH 7.442 (7.350-7.450); ABG TOTAL HEMOGLOBIN 13.3 G/dL (12.0-18.0); PO2, ARTERIAL BG 105.9 mmHg (92.0-100.0); SOURCE, BLOOD GAS ARTERIAL; TEMPERATURE, FAHRENHEIT, BG 98.8 FAHREN (96.0-98.6)
[2021-05-04 22:17] LABS: O2 DEVICE,BLOOD GAS ROOM AIR (ROOM AIR); SITE, BLOOD GAS LFT RADIAL
[2021-05-04 22:23] LABS: BASOPHILS % (AUTO) 0.4 % (0.0-2.0); EOSINOPHILS % (AUTO) 0.4 % (1.0-6.0); HEMATOCRIT 39.3 % (36-46); HEMOGLOBIN 12.9 g/dL (12.0-16.0); LYMPHOCYTES # (AUTO) 1.2 K/uL (1.0-4.8); LYMPHOCYTES % (AUTO) 17.8 % (22.0-44.0); MEAN CORPUSCULAR HEMOGLOBIN 29.8 pg (26.0-34.0); MEAN CORPUSCULAR HGB CONC 32.9 G/dL (31.0-37.0); MEAN CORPUSCULAR VOLUME 91 fL (80-100); MONOCYTES # (AUTO) 0.2 K/uL (0.1-1.0); MONOCYTES % (AUTO) 3.6 % (2.0-9.0); NEUTROPHILS # (AUTO) 5.3 K/uL (1.8-7.7); NEUTROPHILS % (AUTO) 77.8 % (40.0-70.0); PLATELET COUNT (AUTO) 308 K/uL (150-450); RED BLOOD CELL COUNT(AUTO) 4.33 MIL/uL (4.00-5.20); RED CELL DISTRIBUTION WIDTH 12.7 % (11.5-14.5)
[2021-05-04 22:52] LABS: ANION GAP 21 mmol/L (8-16); CALCIUM, TOTAL 8.6 mg/dL (8.8-10.5); CARBON DIOXIDE 20 mmol/L (22-29); CHLORIDE 98 mmol/L (98-107); CREATININE 0.82 mg/dL (0.60-1.30); GLOMERULAR FILTR. RATE CALC > 60 mL/min (>60); GLUCOSE,RANDOM 361 mg/dL (70-110); POTASSIUM 3.7 mmol/L (3.5-5.1); SODIUM SERUM 139 mmol/L (136-145); UREA NITROGEN, BLOOD 6 mg/dL (7-18)
[2021-05-04] MEDS ORDERED: INSULIN REGULAR, HUMAN 100 UNITS/ML IVP ONE (23:00)
[2021-05-04 23:04] LABS: ALANINE AMINOTRANSFERASE 29 U/L (12-78); ALBUMIN 3.9 g/dL (3.4-5.0); ALKALINE PHOSPHATASE 91 U/L (46-116); ASPARTATE AMINOTRANSFERASE 21 U/L (15-37); BILIRUBIN,TOTAL 0.5 mg/dL (0.1-1.0); HCG,QUANTITATIVE < 1 mIU/mL (0-6); LIPASE 221 U/L (73-393); TOTAL PROTEIN, SERUM 7.3 g/dL (6.4-8.2)
[2021-05-04 23:46] LABS: GLUCOMETER DEV NAME(LOC) ERT.5; GLUCOSE,POINT OF CARE 304 MG/DL (70-110)
[2021-05-05] MEDS ORDERED: MAGNESIUM HYDROXIDE SUSPENSION 30 ML UDCUP PO PRN (00:15)
[2021-05-05] MEDS ORDERED: OxyCODONE HCL/ACETAMINOPHEN 5-325 MG TABLET PO PRN (00:15)
[2021-05-05] MEDS ORDERED: MORPHINE SULFATE 2 MG/ML SYRINGE IVP ONE (00:15)
[2021-05-05] MEDS ORDERED: INSULIN LISPRO 100 UNITS/ML SQ PRN (00:15)
[2021-05-05] MEDS ORDERED: MORPHINE SULFATE 2 MG/ML SYRINGE IVP PRN (00:15)
[2021-05-05] MEDS ORDERED: ACETAMINOPHEN 325 MG TABLET PO PRN (00:15)
[2021-05-05] MEDS ORDERED: ONDANSETRON HCL 4 MG/2 ML VIAL IVP ONE (00:15)
[2021-05-05] MEDS ORDERED: ONDANSETRON HCL 4 MG/2 ML VIAL IVP PRN (00:15)
[2021-05-05] MEDS ORDERED: DEXTROSE 50%-WATER 25 GM/50 ML SYRINGE IVP PRN (00:15)
[2021-05-05] MEDS: SODIUM CHLORIDE 0.9% 1,000 ML IV SCH ×2 (00:31→10:07)
[2021-05-05 02:10] VITALS: BP 143/97
[2021-05-05 03:49] VITALS: BP 112/75
[2021-05-05 03:50] VITALS: BP 112/75
[2021-05-05 07:34] LABS: GLUCOMETER DEV NAME(LOC) 6N.1; GLUCOSE,POINT OF CARE 197 MG/DL (70-110)
[2021-05-05 07:53] VITALS: BP 110/71
[2021-05-05] MEDS ORDERED: HEPARIN SODIUM,PORCINE 5,000 UNITS/ML VIAL SQ SCH (08:00)
[2021-05-05] MEDS ORDERED: PANTOPRAZOLE SODIUM 40 MG/VIAL IVP SCH (09:00)
[2021-05-05] MEDS ORDERED: INSULIN GLARGINE,HUM.REC.ANLOG 100 UNITS/ML SQ SCH (09:00)
== END 2021-05-05 11:12 | disposition left against medical advice (07) | DRG 48 ==
LOC: EMS 21:18 → 6N 05-05 00:17
PROVIDERS: ADMIT Internal Medicine; ATTEND Internal Medicine
DX: E11.43 Type 2 diabetes mellitus with diabetic autonomic (poly)neuropathy (principal); E11.65 Type 2 diabetes mellitus with hyperglycemia; K31.84 Gastroparesis; F12.90 Cannabis use, unspecified, uncomplicated; E11.8 Type 2 diabetes mellitus with unspecified complications
CPT/HCPCS: 36600; 80053; 82805; 82962; 83690; 84702; 85025; 93005; 99285; C9113; G0480; J1644; J1815; J2270; J2405; J7030

== ENCOUNTER 2021-07-09 09:21 | Emergency (ER) | payer MEDICAID ==
[~2021-07-09] VITALS: Ht 185.4 cm; Wt 59.1 kg
[~2021-07-09 09:21] MED LIST changes: -METO-296 PO; -ONDA-104 PO
[2021-07-09] MEDS ORDERED: ONDANSETRON HCL 4 MG/2 ML VIAL IVP ONE (09:45)
[2021-07-09] MEDS ORDERED: SODIUM CHLORIDE 0.9% 1,000 ML IV ONE (09:45)
[2021-07-09 10:01] LABS: BASOPHILS % (AUTO) 0.4 % (0.0-2.0); EOSINOPHILS % (AUTO) 0.5 % (1.0-6.0); HEMATOCRIT 41.7 % (36-46); HEMOGLOBIN 13.9 g/dL (12.0-16.0); LYMPHOCYTES # (AUTO) 1.3 K/uL (1.0-4.8); LYMPHOCYTES % (AUTO) 13.3 % (22.0-44.0); MEAN CORPUSCULAR HEMOGLOBIN 30.4 pg (26.0-34.0); MEAN CORPUSCULAR HGB CONC 33.3 G/dL (31.0-37.0); MEAN CORPUSCULAR VOLUME 91 fL (80-100); MONOCYTES # (AUTO) 0.5 K/uL (0.1-1.0); MONOCYTES % (AUTO) 4.9 % (2.0-9.0); NEUTROPHILS % (AUTO) 80.9 % (40.0-70.0); PLATELET COUNT (AUTO) 341 K/uL (150-450); RED BLOOD CELL COUNT(AUTO) 4.57 MIL/uL (4.00-5.20); RED CELL DISTRIBUTION WIDTH 12.5 % (11.5-14.5)
[2021-07-09 10:10] LABS: ANION GAP 9 mmol/L (8-16); CALCIUM, TOTAL 9.1 mg/dL (8.8-10.5); CARBON DIOXIDE 30 mmol/L (22-29); CHLORIDE 103 mmol/L (98-107); CREATININE 0.84 mg/dL (0.60-1.30); GLOMERULAR FILTR. RATE CALC > 60 mL/min (>60); GLUCOSE,RANDOM 266 mg/dL (70-110); POTASSIUM 3.2 mmol/L (3.5-5.1); SODIUM SERUM 142 mmol/L (136-145); UREA NITROGEN, BLOOD 11 mg/dL (7-18)
[2021-07-09 10:23] LABS: ALANINE AMINOTRANSFERASE 37 U/L (12-78); ALBUMIN 4.1 g/dL (3.4-5.0); ALKALINE PHOSPHATASE 111 U/L (46-116); ASPARTATE AMINOTRANSFERASE 18 U/L (15-37); BILIRUBIN,TOTAL 0.4 mg/dL (0.1-1.0); HCG,QUANTITATIVE < 1 mIU/mL (0-6); LIPASE 114 U/L (73-393); TOTAL PROTEIN, SERUM 7.9 g/dL (6.4-8.2)
[2021-07-09 10:26] LABS: APPEARANCE,URINE CLEAR (CLEAR); BILIRUBIN,URINE NEGATIVE (NEGATIVE); GLUCOSE, URINE (UA) >=1000 mg/dL (NEGATIVE); KETONES,URINE 40 mg/dL (NEGATIVE); LEUKOCYTE ESTERASE ,URINE NEGATIVE (NEGATIVE); NITRATE,URINE NEGATIVE (NEGATIVE); OCCULT BLOOD,URINE NEGATIVE (NEGATIVE); PROTEIN,URINE TRACE (NEGATIVE)
[2021-07-09 10:36] LABS: AMPHET/METH SCREEN,URINE NEGATIVE (NEGATIVE); BARBITURATE SCREEN, URINE NEGATIVE (NEGATIVE); BENZODIAZEPINES SCREEN,URINE NEGATIVE (NEGATIVE); CANNABINOID SCREEN,URINE POSITIVE (NEGATIVE); COCAINE SCREEN,URINE NEGATIVE (NEGATIVE); METHADONE SCREEN, URINE NEGATIVE (NEGATIVE); OPIATE SCREEN,URINE NEGATIVE (NEGATIVE)
[2021-07-09 10:41] LABS: PHENCYCLIDINE SCREEN,URINE NEGATIVE (NEGATIVE)
[2021-07-09] MEDS ORDERED: HALOPERIDOL LACTATE 5 MG/ML VIAL IVP ONE (10:45)
[2021-07-09] MEDS ORDERED: DiphenhydrAMINE HCL 50 MG/ML VIAL IVP ONE (10:45)
[2021-07-09 11:35] LABS: BACTERIA,URINE None Seen /HPF (None Seen); RBC,URINE None Seen /HPF (0-2); SQUAMOUS EPITHELIAL CELL,UR Few /LPF (None Seen); WBC,URINE None Seen /HPF (0-5)
[2021-07-09 12:00] VITALS: BP 139/73
[2021-07-09] MEDS ORDERED: POTASSIUM CHLORIDE 20 MEQ ER TABLET PO ONE (12:15)
[2021-07-09] MEDS ORDERED: PB/HYOSCY/ATR/SCOP/LIDO/MAALOX 55 ML BOTTLE PO ONE (12:15)
== END 2021-07-09 12:30 | disposition home or self-care (01) ==
LOC: EMS 09:24
DX: F12.188 Cannabis abuse with other cannabis-induced disorder (principal)
CPT/HCPCS: 36415; 80053; 80307; 81001; 81003; 82962; 83690; 84702; 85025; 96361; 96374; 96375; 99284; J1200; J1630; J2405; J7030

== ENCOUNTER 2021-07-11 07:28 | Emergency (ER) | payer MEDICAID ==
[~2021-07-11] VITALS: Ht 182.9 cm; Wt 54.5 kg
[2021-07-11] MEDS ORDERED: SODIUM CHLORIDE 0.9% 1,000 ML IV ONE (08:00)
[2021-07-11] MEDS ORDERED: LORazepam 2 MG/ML VIAL IVP ONE (08:15)
[2021-07-11] MEDS ORDERED: CAPSAICIN 0.075% 60 GM CREAM TP ONE (08:15)
[2021-07-11 08:45] LABS: BASOPHILS % (AUTO) 0.3 % (0.0-2.0); EOSINOPHILS % (AUTO) 0.5 % (1.0-6.0); HEMOGLOBIN 13.5 g/dL (12.0-16.0); LYMPHOCYTES # (AUTO) 1.2 K/uL (1.0-4.8); LYMPHOCYTES % (AUTO) 10.9 % (22.0-44.0); MEAN CORPUSCULAR HGB CONC 32.9 G/dL (31.0-37.0); MEAN CORPUSCULAR VOLUME 91 fL (80-100); MONOCYTES # (AUTO) 0.6 K/uL (0.1-1.0); MONOCYTES % (AUTO) 5.7 % (2.0-9.0); NEUTROPHILS # (AUTO) 9.4 K/uL (1.8-7.7); NEUTROPHILS % (AUTO) 82.6 % (40.0-70.0); PLATELET COUNT (AUTO) 316 K/uL (150-450); RED BLOOD CELL COUNT(AUTO) 4.49 MIL/uL (4.00-5.20)
[2021-07-11 08:58] LABS: ANION GAP 10 mmol/L (8-16); CARBON DIOXIDE 26 mmol/L (22-29); CHLORIDE 97 mmol/L (98-107); CREATININE 0.76 mg/dL (0.60-1.30); GLOMERULAR FILTR. RATE CALC > 60 mL/min (>60); GLUCOSE,RANDOM 273 mg/dL (70-110); POTASSIUM 3.3 mmol/L (3.5-5.1); SODIUM SERUM 133 mmol/L (136-145); UREA NITROGEN, BLOOD 12 mg/dL (7-18)
[2021-07-11 09:09] LABS: ALANINE AMINOTRANSFERASE 30 U/L (12-78); ALBUMIN 4.2 g/dL (3.4-5.0); ALKALINE PHOSPHATASE 71 U/L (46-116); ASPARTATE AMINOTRANSFERASE 17 U/L (15-37); BILIRUBIN,TOTAL 0.7 mg/dL (0.1-1.0); HCG,QUANTITATIVE < 1 mIU/mL (0-6); LIPASE 116 U/L (73-393); TOTAL PROTEIN, SERUM 7.6 g/dL (6.4-8.2)
[2021-07-11] MEDS ORDERED: MAGNESIUM SULFATE 2 GM/WATER 50 ML IV ONE (09:15)
[2021-07-11] MEDS ORDERED: POTASSIUM CHL 20 MEQ/0.9% NS 1,000 ML IV ONE (09:15)
[2021-07-11] MEDS ORDERED: HALOPERIDOL LACTATE 5 MG/ML VIAL IVP ONE (11:15)
[2021-07-11 17:06] VITALS: BP 102/70
== END 2021-07-11 17:12 | disposition home or self-care (01) ==
LOC: EMS 07:31
DX: F12.188 Cannabis abuse with other cannabis-induced disorder (principal); E11.9 Type 2 diabetes mellitus without complications; F17.210 Nicotine dependence, cigarettes, uncomplicated; Z79.4 Long term (current) use of insulin
CPT/HCPCS: 36415; 80053; 82962; 83690; 83735; 84702; 85025; 93005; 96361; 96365; 96366; 96375; 99285; J1630; J2060; J3475; J3480; J7030; 96367; 96368

== ENCOUNTER 2021-07-13 14:46 | Emergency (ER) | payer MEDICAID ==
[~2021-07-13] VITALS: Ht 185.4 cm; Wt 62.7 kg
[2021-07-13 15:12] LABS: GLUCOMETER DEV NAME(LOC) ERT.5; GLUCOSE,POINT OF CARE 277 MG/DL (70-110)
[2021-07-13] MEDS ORDERED: SODIUM CHLORIDE 0.9% 1,000 ML IV ONE (15:45)
[2021-07-13] MEDS ORDERED: DiphenhydrAMINE HCL 50 MG/ML VIAL IVP ONE ×2 (15:45→18:30)
[2021-07-13] MEDS ORDERED: METOCLOPRAMIDE HCL 5 MG/ML 2 ML VIAL IVP ONE (15:45)
[2021-07-13 15:54] LABS: BASOPHILS % (AUTO) 0.4 % (0.0-2.0); EOSINOPHILS % (AUTO) 0.6 % (1.0-6.0); HEMATOCRIT 38.7 % (36-46); LYMPHOCYTES # (AUTO) 1.2 K/uL (1.0-4.8); LYMPHOCYTES % (AUTO) 17.1 % (22.0-44.0); MEAN CORPUSCULAR HEMOGLOBIN 30.4 pg (26.0-34.0); MEAN CORPUSCULAR HGB CONC 33.5 G/dL (31.0-37.0); MEAN CORPUSCULAR VOLUME 91 fL (80-100); MONOCYTES # (AUTO) 0.7 K/uL (0.1-1.0); MONOCYTES % (AUTO) 10.1 % (2.0-9.0); NEUTROPHILS # (AUTO) 4.9 K/uL (1.8-7.7); NEUTROPHILS % (AUTO) 71.8 % (40.0-70.0); PLATELET COUNT (AUTO) 304 K/uL (150-450); RED BLOOD CELL COUNT(AUTO) 4.26 MIL/uL (4.00-5.20)
[2021-07-13 16:04] LABS: ANION GAP 7 mmol/L (8-16); CALCIUM, TOTAL 8.9 mg/dL (8.8-10.5); CARBON DIOXIDE 28 mmol/L (22-29); CHLORIDE 97 mmol/L (98-107); CREATININE 0.72 mg/dL (0.60-1.30); GLOMERULAR FILTR. RATE CALC > 60 mL/min (>60); GLUCOSE,RANDOM 281 mg/dL (70-110); POTASSIUM 3.4 mmol/L (3.5-5.1); SODIUM SERUM 132 mmol/L (136-145); UREA NITROGEN, BLOOD 4 mg/dL (7-18)
[2021-07-13 16:09] LABS: ALANINE AMINOTRANSFERASE 33 U/L (12-78); ALBUMIN 4.2 g/dL (3.4-5.0); ALKALINE PHOSPHATASE 66 U/L (46-116); ASPARTATE AMINOTRANSFERASE 31 U/L (15-37); BILIRUBIN,TOTAL 0.8 mg/dL (0.1-1.0); LIPASE 104 U/L (73-393); TOTAL PROTEIN, SERUM 7.5 g/dL (6.4-8.2)
[2021-07-13] MEDS ORDERED: KETOROLAC TROMETHAMINE 30 MG/ML VIAL IVP ONE (16:30)
[2021-07-13 17:10] VITALS: BP 141/101
== END 2021-07-13 18:52 | disposition home or self-care (01) ==
LOC: EMS 14:46
DX: F12.188 Cannabis abuse with other cannabis-induced disorder (principal); R11.2 Nausea with vomiting, unspecified; E11.9 Type 2 diabetes mellitus without complications; F17.210 Nicotine dependence, cigarettes, uncomplicated; Z79.4 Long term (current) use of insulin
CPT/HCPCS: 36415; 80053; 82962; 83690; 85025; 96361; 96374; 96375; 96376; 99284; J1200; J1885; J2765; J7030

== ENCOUNTER 2021-07-17 10:00 | Emergency (ER) | payer MEDICAID ==
[~2021-07-17] VITALS: Ht 185.4 cm; Wt 61.4 kg
[2021-07-17] MEDS ORDERED: SODIUM CHLORIDE 0.9% 1,000 ML IV ONE ×2 (12:00→14:00)
[2021-07-17] MEDS ORDERED: ONDANSETRON HCL 4 MG/2 ML VIAL IVP ONE (12:00)
[2021-07-17] MEDS ORDERED: CAPSAICIN 0.025% 60 GM CREAM TP ONE (12:15)
[2021-07-17 12:52] LABS: BASOPHILS % (AUTO) 0.5 % (0.0-2.0); EOSINOPHILS % (AUTO) 0.4 % (1.0-6.0); HEMATOCRIT 39.3 % (36-46); HEMOGLOBIN 13.2 g/dL (12.0-16.0); LYMPHOCYTES # (AUTO) 0.9 K/uL (1.0-4.8); LYMPHOCYTES % (AUTO) 11.6 % (22.0-44.0); MEAN CORPUSCULAR HEMOGLOBIN 30.3 pg (26.0-34.0); MEAN CORPUSCULAR HGB CONC 33.7 G/dL (31.0-37.0); MEAN CORPUSCULAR VOLUME 90 fL (80-100); MONOCYTES # (AUTO) 0.6 K/uL (0.1-1.0); MONOCYTES % (AUTO) 7.5 % (2.0-9.0); PLATELET COUNT (AUTO) 289 K/uL (150-450); RED BLOOD CELL COUNT(AUTO) 4.36 MIL/uL (4.00-5.20); RED CELL DISTRIBUTION WIDTH 13.1 % (11.5-14.5)
[2021-07-17 13:12] LABS: ALANINE AMINOTRANSFERASE 40 U/L (12-78); ALBUMIN 4.2 g/dL (3.4-5.0); ALKALINE PHOSPHATASE 86 U/L (46-116); ANION GAP 10 mmol/L (8-16); ASPARTATE AMINOTRANSFERASE 26 U/L (15-37); BILIRUBIN,TOTAL 0.6 mg/dL (0.1-1.0); CALCIUM, TOTAL 8.8 mg/dL (8.8-10.5); CARBON DIOXIDE 28 mmol/L (22-29); CHLORIDE 99 mmol/L (98-107); GLOMERULAR FILTR. RATE CALC > 60 mL/min (>60); GLUCOSE,RANDOM 344 mg/dL (70-110); HCG,QUANTITATIVE < 1 mIU/mL (0-6); LIPASE 131 U/L (73-393); SODIUM SERUM 137 mmol/L (136-145); TOTAL PROTEIN, SERUM 7.7 g/dL (6.4-8.2); UREA NITROGEN, BLOOD 1 mg/dL (7-18)
[2021-07-17 13:23] LABS: APPEARANCE,URINE CLEAR (CLEAR); BILIRUBIN,URINE NEGATIVE (NEGATIVE); GLUCOSE, URINE (UA) >=1000 mg/dL (NEGATIVE); KETONES,URINE TRACE mg/dL (NEGATIVE); LEUKOCYTE ESTERASE ,URINE NEGATIVE (NEGATIVE); NITRATE,URINE NEGATIVE (NEGATIVE); OCCULT BLOOD,URINE NEGATIVE (NEGATIVE); PH,URINE 7.5 (5.0-8.0); PROTEIN,URINE NEGATIVE (NEGATIVE); UROBILINOGEN,URINE 0.2 mg/dL (<=1.0)
[2021-07-17 13:24] LABS: AMPHET/METH SCREEN,URINE NEGATIVE (NEGATIVE); BARBITURATE SCREEN, URINE NEGATIVE (NEGATIVE); BENZODIAZEPINES SCREEN,URINE NEGATIVE (NEGATIVE); CANNABINOID SCREEN,URINE POSITIVE (NEGATIVE); COCAINE SCREEN,URINE NEGATIVE (NEGATIVE); METHADONE SCREEN, URINE NEGATIVE (NEGATIVE); OPIATE SCREEN,URINE NEGATIVE (NEGATIVE); PHENCYCLIDINE SCREEN,URINE NEGATIVE (NEGATIVE)
[2021-07-17 13:33] LABS: BACTERIA,URINE None Seen /HPF (None Seen); RBC,URINE None Seen /HPF (0-2); WBC,URINE None Seen /HPF (0-5)
[2021-07-17] MEDS ORDERED: POTASSIUM CHLORIDE 20 MEQ ER TABLET PO ONE (14:00)
[2021-07-17] MEDS ORDERED: INSULIN REGULAR, HUMAN 100 UNITS/ML IVP ONE (14:00)
[2021-07-17] MEDS ORDERED: DiphenhydrAMINE HCL 50 MG/ML VIAL IVP ONE (14:00)
[2021-07-17 14:12] LABS: GLUCOSE,POINT OF CARE 303 MG/DL (70-110)
[2021-07-17 15:02] VITALS: BP 161/122
[2021-07-17] MEDS ORDERED: METOCLOPRAMIDE HCL 5 MG/ML 2 ML VIAL IVP ONE (16:00)
== END 2021-07-17 17:11 | disposition home or self-care (01) ==
LOC: EMS 10:09
DX: F12.988 Cannabis use, unspecified with other cannabis-induced disorder (principal); R11.10 Vomiting, unspecified; E11.65 Type 2 diabetes mellitus with hyperglycemia; R10.13 Epigastric pain; F41.9 Anxiety disorder, unspecified; F12.90 Cannabis use, unspecified, uncomplicated; F17.210 Nicotine dependence, cigarettes, uncomplicated; Z79.4 Long term (current) use of insulin; E11.9 Type 2 diabetes mellitus without complications; Z79.899 Other long term (current) drug therapy
CPT/HCPCS: 36415; 80053; 80307; 81001; 82948; 82962; 83690; 84702; 85025; 96361; 96374; 96375; 99284; J1200; J1815; J2405; J2765; J7030

== ENCOUNTER 2021-10-26 14:13 | Emergency (ER) | payer MEDICAID ==
[~2021-10-26] VITALS: Ht 185.4 cm; Wt 56.8 kg
[2021-10-26 14:26] VITALS: BP 117/76
[2021-10-26] MEDS ORDERED: SODIUM CHLORIDE 0.9% 1,000 ML IV ONE (15:00)
[2021-10-26] MEDS ORDERED: MORPHINE SULFATE 4 MG/ML SYRINGE IVP ONE (15:00)
[2021-10-26] MEDS ORDERED: ONDANSETRON HCL 4 MG/2 ML VIAL IVP ONE (15:00)
[2021-10-26 15:04] LABS: BASOPHILS % (AUTO) 0.3 % (0.0-2.0); EOSINOPHILS % (AUTO) 0.5 % (1.0-6.0); HEMATOCRIT 41.7 % (36-46); LYMPHOCYTES # (AUTO) 1.5 K/uL (1.0-4.8); MEAN CORPUSCULAR HEMOGLOBIN 29.9 pg (26.0-34.0); MEAN CORPUSCULAR HGB CONC 33.6 G/dL (31.0-37.0); MEAN CORPUSCULAR VOLUME 89 fL (80-100); MONOCYTES # (AUTO) 0.7 K/uL (0.1-1.0); MONOCYTES % (AUTO) 10.2 % (2.0-9.0); PLATELET COUNT (AUTO) 367 K/uL (150-450); RED BLOOD CELL COUNT(AUTO) 4.68 MIL/uL (4.00-5.20); RED CELL DISTRIBUTION WIDTH 12.6 % (11.5-14.5)
[2021-10-26 15:18] LABS: ANION GAP 13 mmol/L (8-16); CALCIUM, TOTAL 9.5 mg/dL (8.8-10.5); CARBON DIOXIDE 22 mmol/L (22-29); CHLORIDE 97 mmol/L (98-107); CREATININE 0.73 mg/dL (0.60-1.30); GLOMERULAR FILTR. RATE CALC > 60 mL/min (>60); GLUCOSE,RANDOM 190 mg/dL (70-110); POTASSIUM 3.7 mmol/L (3.5-5.1); SODIUM SERUM 132 mmol/L (136-145); UREA NITROGEN, BLOOD 8 mg/dL (7-18)
[2021-10-26 15:25] LABS: ALANINE AMINOTRANSFERASE 23 U/L (12-78); ALKALINE PHOSPHATASE 60 U/L (46-116); ASPARTATE AMINOTRANSFERASE 17 U/L (15-37); LIPASE 59 U/L (73-393); TOTAL PROTEIN, SERUM 7.6 g/dL (6.4-8.2)
[2021-10-26 15:26] LABS: LACTIC ACID 1.1 mmol/L (0.4-2.0)
[2021-10-26 16:59] LABS: APPEARANCE,URINE CLEAR (CLEAR); BILIRUBIN,URINE PRELIM. POSITIVE (NEGATIVE); GLUCOSE, URINE (UA) 100 mg/dL (NEGATIVE); KETONES,URINE >=80 mg/dL (NEGATIVE); LEUKOCYTE ESTERASE ,URINE NEGATIVE (NEGATIVE); NITRATE,URINE NEGATIVE (NEGATIVE); OCCULT BLOOD,URINE TRACE (NEGATIVE); PROTEIN,URINE TRACE (NEGATIVE)
[2021-10-26 17:08] LABS: BACTERIA,URINE Rare /HPF (None Seen); SQUAMOUS EPITHELIAL CELL,UR Few /LPF (None Seen); WBC,URINE 0-2 /HPF (0-5)
== END 2021-10-26 18:00 | disposition home or self-care (01) ==
LOC: EMS 14:19
DX: R11.2 Nausea with vomiting, unspecified (principal); R10.13 Epigastric pain; E11.9 Type 2 diabetes mellitus without complications; F12.90 Cannabis use, unspecified, uncomplicated; F17.210 Nicotine dependence, cigarettes, uncomplicated; Z79.4 Long term (current) use of insulin; Z79.899 Other long term (current) drug therapy
CPT/HCPCS: 36415; 80053; 81001; 83605; 83690; 84703; 85025; 96361; 96374; 96375; 99284; J2270; J2405; J7030

== ENCOUNTER 2021-11-17 10:00 | Emergency (ER) | payer MEDICAID ==
[~2021-11-17] VITALS: Ht 185.4 cm; Wt 64.0 kg
[2021-11-17 10:11] VITALS: BP 110/62
[2021-11-17] MEDS ORDERED: IBUPROFEN 600 MG TABLET PO ONE (10:15)
[2021-11-25] MEDS ORDERED: MIDAZOLAM HCL 2 MG/2 ML VIAL IVP ONE (12:00)
[2021-11-25] MEDS ORDERED: FentaNYL CITRATE PF 100 MCG/2 ML VIAL IVP ONE (12:00)
== END 2021-11-17 12:22 | disposition home or self-care (01) ==
LOC: EMS 10:00
DX: S52.501A Unspecified fracture of the lower end of right radius, initial encounter for closed fracture (principal); E11.9 Type 2 diabetes mellitus without complications; Z79.899 Other long term (current) drug therapy; Z79.4 Long term (current) use of insulin; W18.39XA Other fall on same level, initial encounter; Y93.89 Activity, other specified; Y92.89 Other specified places as the place of occurrence of the external cause; Y99.8 Other external cause status
CPT/HCPCS: 99283

== ENCOUNTER 2021-11-30 03:45 | Emergency (ER) | payer MEDICAID ==
[~2021-11-30] VITALS: Ht 185.4 cm; Wt 62.3 kg
[2021-11-30 04:11] LABS: BASOPHILS % (AUTO) 0.1 % (0.0-2.0); EOSINOPHILS % (AUTO) 0 % (1.0-6.0); HEMOGLOBIN 13.8 g/dL (12.0-16.0); LYMPHOCYTES # (AUTO) 0.6 K/uL (1.0-4.8); LYMPHOCYTES % (AUTO) 3.4 % (22.0-44.0); MEAN CORPUSCULAR VOLUME 91 fL (80-100); MONOCYTES # (AUTO) 0.4 K/uL (0.1-1.0); MONOCYTES % (AUTO) 2.3 % (2.0-9.0); NEUTROPHILS # (AUTO) 16.6 K/uL (1.8-7.7); PLATELET COUNT (AUTO) 485 K/uL (150-450); RED BLOOD CELL COUNT(AUTO) 4.61 MIL/uL (4.00-5.20); RED CELL DISTRIBUTION WIDTH 12.6 % (11.5-14.5)
[2021-11-30 04:14] LABS: NEUTROPHILS % (AUTO) 94.2 % (40.0-70.0)
[2021-11-30 04:29] LABS: ALANINE AMINOTRANSFERASE 33 U/L (12-78); ALBUMIN 4.4 g/dL (3.4-5.0); ALKALINE PHOSPHATASE 90 U/L (46-116); ANION GAP 18 mmol/L (8-16); ASPARTATE AMINOTRANSFERASE 21 U/L (15-37); BILIRUBIN,TOTAL 0.8 mg/dL (0.1-1.0); CALCIUM, TOTAL 9.9 mg/dL (8.8-10.5); CARBON DIOXIDE 21 mmol/L (22-29); CHLORIDE 98 mmol/L (98-107); CREATININE 1.06 mg/dL (0.60-1.30); GLOMERULAR FILTR. RATE CALC > 60 mL/min (>60); HCG,QUANTITATIVE < 1 mIU/mL (0-6); LIPASE 104 U/L (73-393); POTASSIUM 4.4 mmol/L (3.5-5.1); SODIUM SERUM 137 mmol/L (136-145); TOTAL PROTEIN, SERUM 8.6 g/dL (6.4-8.2); UREA NITROGEN, BLOOD 12 mg/dL (7-18)
[2021-11-30 04:31] LABS: GLUCOSE,RANDOM 534 mg/dL (70-110)
[2021-11-30] MEDS ORDERED: POTASSIUM CHL 20 MEQ/0.45% NS 1,000 ML IV PRN (06:15)
[2021-11-30] MEDS ORDERED: POTASSIUM CHLORIDE 40 MEQ in SODIUM CHLORIDE 0.45% 1,000 ML IV PRN (06:15)
[2021-11-30] MEDS ORDERED: DEXTROSE 50%-WATER 25 GM/50 ML SYRINGE IVP PRN (06:15)
[2021-11-30] MEDS ORDERED: DEXTROSE 5%-0.45% SODIUM CHL 1,000 ML IV PRN (06:15)
[2021-11-30] MEDS ORDERED: MORPHINE SULFATE 4 MG/ML SYRINGE IVP ONE ×2 (06:15→10:45)
[2021-11-30] MEDS ORDERED: SODIUM CHLORIDE 0.45% 1,000 ML IV PRN (06:15)
[2021-11-30] MEDS ORDERED: INSULIN REGULAR, HUMAN 100 UNITS/ML IVP ONE (06:15)
[2021-11-30] MEDS ORDERED: METOCLOPRAMIDE HCL 5 MG/ML 2 ML VIAL IVP ONE (06:15)
[2021-11-30] MEDS ORDERED: DiphenhydrAMINE HCL 50 MG/ML VIAL IVP ONE (06:15)
[2021-11-30] MEDS ORDERED: SODIUM CHLORIDE 0.9% 1,000 ML IV SCH (06:15)
[2021-11-30] MEDS ORDERED: INSULIN REGULAR, HUMAN 100 UNITS/ML IVP PRN (06:15)
[2021-11-30] MEDS ORDERED: SODIUM CHLORIDE 0.9% 1,000 ML IV ONE (06:45)
[2021-11-30 07:34] LABS: ANION GAP 20 mmol/L (8-16); CALCIUM, TOTAL 9.7 mg/dL (8.8-10.5); CARBON DIOXIDE 19 mmol/L (22-29); CHLORIDE 99 mmol/L (98-107); CREATININE 1.13 mg/dL (0.60-1.30); GLOMERULAR FILTR. RATE CALC > 60 mL/min (>60); POTASSIUM 4.9 mmol/L (3.5-5.1); SODIUM SERUM 138 mmol/L (136-145); UREA NITROGEN, BLOOD 15 mg/dL (7-18)
[2021-11-30 07:36] LABS: GLUCOSE,RANDOM 535 mg/dL (70-110)
[2021-11-30 08:06] LABS: GLUCOSE,POINT OF CARE 461 MG/DL (70-110)
[2021-11-30] MEDS: INSULIN REGULAR, HUMAN 100 UNITS in SODIUM CHLORIDE 0.9% 99 ML IV PRN ×4 (08:52→11:58)
[2021-11-30 09:52] LABS: GLUCOMETER DEV NAME(LOC) ERT.5; GLUCOSE,POINT OF CARE 375 MG/DL (70-110)
[2021-11-30 10:13] LABS: ANION GAP 14 mmol/L (8-16); CALCIUM, TOTAL 8.8 mg/dL (8.8-10.5); CARBON DIOXIDE 22 mmol/L (22-29); CHLORIDE 104 mmol/L (98-107); CREATININE 0.92 mg/dL (0.60-1.30); GLOMERULAR FILTR. RATE CALC > 60 mL/min (>60); GLUCOSE,RANDOM 375 mg/dL (70-110); POTASSIUM 4.4 mmol/L (3.5-5.1); SODIUM SERUM 140 mmol/L (136-145); UREA NITROGEN, BLOOD 16 mg/dL (7-18)
[2021-11-30 10:36] LABS: GLUCOSE,POINT OF CARE 320 MG/DL (70-110)
[2021-11-30] MEDS ORDERED: MORPHINE SULFATE 4 MG/ML SYRINGE IM ONE (10:45)
[2021-11-30 12:06] LABS: GLUCOSE,POINT OF CARE 247 MG/DL (70-110)
[2021-11-30 13:02] LABS: GLUCOSE,POINT OF CARE 206 MG/DL (70-110)
[2021-11-30 14:41] LABS: ANION GAP 11 mmol/L (8-16); CALCIUM, TOTAL 8.5 mg/dL (8.8-10.5); CARBON DIOXIDE 26 mmol/L (22-29); CHLORIDE 105 mmol/L (98-107); CREATININE 0.72 mg/dL (0.60-1.30); GLOMERULAR FILTR. RATE CALC > 60 mL/min (>60); GLUCOSE,RANDOM 254 mg/dL (70-110); POTASSIUM 4.3 mmol/L (3.5-5.1); SODIUM SERUM 142 mmol/L (136-145); UREA NITROGEN, BLOOD 14 mg/dL (7-18)
[2021-11-30 15:16] LABS: GLUCOSE,POINT OF CARE 246 MG/DL (70-110)
[2021-11-30] MEDS ORDERED: INSULIN GLARGINE,HUM.REC.ANLOG 100 UNITS/ML SQ ONE (16:00)
[2021-11-30] MEDS ORDERED: INSULIN REGULAR, HUMAN 100 UNITS/ML SQ ONE (16:00)
[2021-11-30 16:31] LABS: GLUCOSE,POINT OF CARE 213 MG/DL (70-110)
[2021-11-30 17:45] LABS: BASOPHILS % (AUTO) 0.2 % (0.0-2.0); EOSINOPHILS % (AUTO) 0.2 % (1.0-6.0); HEMATOCRIT 36.2 % (36-46); HEMOGLOBIN 12.3 g/dL (12.0-16.0); LYMPHOCYTES # (AUTO) 2.1 K/uL (1.0-4.8); MEAN CORPUSCULAR HGB CONC 34.1 G/dL (31.0-37.0); MEAN CORPUSCULAR VOLUME 88 fL (80-100); MONOCYTES # (AUTO) 1.2 K/uL (0.1-1.0); NEUTROPHILS # (AUTO) 9.9 K/uL (1.8-7.7); NEUTROPHILS % (AUTO) 74.6 % (40.0-70.0); PLATELET COUNT (AUTO) 442 K/uL (150-450); RED CELL DISTRIBUTION WIDTH 12.6 % (11.5-14.5)
[2021-11-30 18:03] LABS: ANION GAP 9 mmol/L (8-16); CALCIUM, TOTAL 8.5 mg/dL (8.8-10.5); CARBON DIOXIDE 26 mmol/L (22-29); CHLORIDE 105 mmol/L (98-107); CREATININE 0.76 mg/dL (0.60-1.30); GLOMERULAR FILTR. RATE CALC > 60 mL/min (>60); GLUCOSE,RANDOM 226 mg/dL (70-110); POTASSIUM 4.2 mmol/L (3.5-5.1); SODIUM SERUM 140 mmol/L (136-145); UREA NITROGEN, BLOOD 14 mg/dL (7-18)
[2021-11-30 18:36] VITALS: BP 110/74
== END 2021-11-30 18:36 | disposition home or self-care (01) ==
LOC: EMS 03:48
DX: E11.10 Type 2 diabetes mellitus with ketoacidosis without coma (principal); E11.43 Type 2 diabetes mellitus with diabetic autonomic (poly)neuropathy; K31.84 Gastroparesis; Z79.899 Other long term (current) drug therapy; Z79.4 Long term (current) use of insulin
CPT/HCPCS: 36415; 80048; 80053; 82009; 82962; 83690; 83930; 84702; 85025; 96361; 96365; 96366; 96372; 96375; 96376; 99291; J1200; J1815; J2270; J2765; J3480; J7030; J7050; X7700

== ENCOUNTER 2021-12-01 13:40 | Emergency (ER) | payer MEDICAID ==
[~2021-12-01] VITALS: Ht 185.4 cm; Wt 62.3 kg
[2021-12-01 14:33] LABS: BASOPHILS % (AUTO) 0.8 % (0.0-2.0); EOSINOPHILS % (AUTO) 0.1 % (1.0-6.0); HEMATOCRIT 40.1 % (36-46); HEMOGLOBIN 13.7 g/dL (12.0-16.0); LYMPHOCYTES # (AUTO) 0.9 K/uL (1.0-4.8); LYMPHOCYTES % (AUTO) 9.8 % (22.0-44.0); MEAN CORPUSCULAR HEMOGLOBIN 30.1 pg (26.0-34.0); MEAN CORPUSCULAR VOLUME 89 fL (80-100); MONOCYTES # (AUTO) 0.5 K/uL (0.1-1.0); MONOCYTES % (AUTO) 4.8 % (2.0-9.0); NEUTROPHILS % (AUTO) 84.5 % (40.0-70.0); PLATELET COUNT (AUTO) 514 K/uL (150-450); RED BLOOD CELL COUNT(AUTO) 4.53 MIL/uL (4.00-5.20); RED CELL DISTRIBUTION WIDTH 12.5 % (11.5-14.5)
[2021-12-01 14:42] LABS: ANION GAP 17 mmol/L (8-16); CALCIUM, TOTAL 9.4 mg/dL (8.8-10.5); CARBON DIOXIDE 22 mmol/L (22-29); CHLORIDE 98 mmol/L (98-107); CREATININE 0.85 mg/dL (0.60-1.30); GLOMERULAR FILTR. RATE CALC > 60 mL/min (>60); GLUCOSE,RANDOM 292 mg/dL (70-110); POTASSIUM 3.5 mmol/L (3.5-5.1); SODIUM SERUM 137 mmol/L (136-145); UREA NITROGEN, BLOOD 15 mg/dL (7-18)
[2021-12-01] MEDS ORDERED: RINGERS SOLUTION,LACTATED 2,000 ML IV ONE (14:45)
[2021-12-01 14:46] LABS: TEMPERATURE, FAHRENHEIT, BG 98.7 FAHREN (96.0-98.6); TOTAL HGB CORD VENOUS 13.9 G/dL (12.5-18.0)
[2021-12-01 14:48] LABS: ALANINE AMINOTRANSFERASE 27 U/L (12-78); ALBUMIN 4.2 g/dL (3.4-5.0); ALKALINE PHOSPHATASE 72 U/L (46-116); ASPARTATE AMINOTRANSFERASE 21 U/L (15-37); BILIRUBIN,TOTAL 1.2 mg/dL (0.1-1.0); LIPASE 96 U/L (73-393)
[2021-12-01] MEDS ORDERED: METOCLOPRAMIDE HCL 5 MG/ML 2 ML VIAL IVP ONE (15:00)
[2021-12-01] MEDS ORDERED: FentaNYL CITRATE PF 100 MCG/2 ML VIAL IVP ONE (15:00)
[2021-12-01 15:27] LABS: LACTIC ACID 3.1 mmol/L (0.4-2.0)
[2021-12-01] MEDS ORDERED: MORPHINE SULFATE 4 MG/ML SYRINGE IVP ONE (15:30)
[2021-12-01] MEDS ORDERED: INSULIN REGULAR, HUMAN 100 UNITS/ML SQ ONE (15:30)
[2021-12-01 15:31] LABS: O2 DEVICE,BLOOD GAS ROOM AIR (ROOM AIR)
[2021-12-01 15:32] LABS: SITE, BLOOD GAS OTHER; SOURCE, BLOOD GAS VENOUS
[2021-12-01] MEDS: POTASSIUM CHL 10 MEQ/WATER 50 ML IV SCH ×2 (15:37→16:30)
[2021-12-01] MEDS ORDERED: CAPSAICIN 0.075% 60 GM CREAM TP ONE (16:30)
[2021-12-01] MEDS ORDERED: MORPHINE SULFATE 2 MG/ML SYRINGE IVP ONE (16:30)
[2021-12-01 16:56] LABS: GLUCOMETER DEV NAME(LOC) ERT.5; GLUCOSE,POINT OF CARE 158 MG/DL (70-110)
[2021-12-01 17:36] LABS: ANION GAP 16 mmol/L (8-16); CARBON DIOXIDE 22 mmol/L (22-29); CHLORIDE 101 mmol/L (98-107); CREATININE 0.69 mg/dL (0.60-1.30); GLOMERULAR FILTR. RATE CALC > 60 mL/min (>60); GLUCOSE,RANDOM 183 mg/dL (70-110); POTASSIUM 3.6 mmol/L (3.5-5.1); SODIUM SERUM 139 mmol/L (136-145); UREA NITROGEN, BLOOD 13 mg/dL (7-18)
[2021-12-01 17:37] LABS: CALCIUM, TOTAL 8.9 mg/dL (8.8-10.5)
[2021-12-01 19:04] VITALS: BP 98/49
== END 2021-12-01 21:20 | disposition home or self-care (01) ==
LOC: EMS 13:40
DX: E11.65 Type 2 diabetes mellitus with hyperglycemia (principal); R11.10 Vomiting, unspecified; R10.13 Epigastric pain; Z79.4 Long term (current) use of insulin
CPT/HCPCS: 36415; 71045; 80048; 80053; 82010; 82948; 82962; 83605; 83690; 85025; 93005; 96361; 96372; 96374; 96375; 96376; 99285; J1815; J2270 ×2; J2765; J3010; J3480; J7120

== ENCOUNTER 2021-12-02 13:34 | Emergency (ER) | payer MEDICAID ==
[~2021-12-02] VITALS: Ht 185.4 cm; Wt 62.0 kg
[2021-12-02 14:53] LABS: EOSINOPHILS % (AUTO) 0.1 % (1.0-6.0); HEMATOCRIT 38.6 % (36-46); LYMPHOCYTES # (AUTO) 1.7 K/uL (1.0-4.8); LYMPHOCYTES % (AUTO) 14.9 % (22.0-44.0); MEAN CORPUSCULAR HEMOGLOBIN 29.7 pg (26.0-34.0); MEAN CORPUSCULAR HGB CONC 33.7 G/dL (31.0-37.0); MEAN CORPUSCULAR VOLUME 88 fL (80-100); MONOCYTES # (AUTO) 0.9 K/uL (0.1-1.0); MONOCYTES % (AUTO) 7.6 % (2.0-9.0); NEUTROPHILS # (AUTO) 8.7 K/uL (1.8-7.7); NEUTROPHILS % (AUTO) 76.4 % (40.0-70.0); PLATELET COUNT (AUTO) 524 K/uL (150-450); RED BLOOD CELL COUNT(AUTO) 4.39 MIL/uL (4.00-5.20); RED CELL DISTRIBUTION WIDTH 12.8 % (11.5-14.5)
[2021-12-02 15:01] LABS: ANION GAP 10 mmol/L (8-16); CALCIUM, TOTAL 9.2 mg/dL (8.8-10.5); CARBON DIOXIDE 26 mmol/L (22-29); CHLORIDE 99 mmol/L (98-107); CREATININE 0.83 mg/dL (0.60-1.30); GLOMERULAR FILTR. RATE CALC > 60 mL/min (>60); GLUCOSE,RANDOM 192 mg/dL (70-110); POTASSIUM 3.7 mmol/L (3.5-5.1); SODIUM SERUM 135 mmol/L (136-145); UREA NITROGEN, BLOOD 8 mg/dL (7-18)
[2021-12-02 15:08] LABS: ALANINE AMINOTRANSFERASE 26 U/L (12-78); ALBUMIN 4.1 g/dL (3.4-5.0); ALKALINE PHOSPHATASE 69 U/L (46-116); ASPARTATE AMINOTRANSFERASE 21 U/L (15-37); BILIRUBIN,TOTAL 1.2 mg/dL (0.1-1.0); LIPASE 72 U/L (73-393); TOTAL PROTEIN, SERUM 7.8 g/dL (6.4-8.2)
[2021-12-02] MEDS ORDERED: METOCLOPRAMIDE HCL 5 MG/ML 2 ML VIAL IVP ONE (16:00)
[2021-12-02] MEDS ORDERED: LORazepam 2 MG/ML VIAL IVP ONE (16:00)
[2021-12-02] MEDS ORDERED: HALOPERIDOL LACTATE 5 MG/ML VIAL IVP ONE (16:00)
[2021-12-02] MEDS ORDERED: SODIUM CHLORIDE 0.9% 1,000 ML IV ONE (16:00)
[2021-12-02 18:09] VITALS: BP 101/61
== END 2021-12-02 19:03 | disposition home or self-care (01) ==
LOC: EMS 13:40
DX: F12.988 Cannabis use, unspecified with other cannabis-induced disorder (principal); R11.2 Nausea with vomiting, unspecified; F41.9 Anxiety disorder, unspecified; Z79.4 Long term (current) use of insulin; Z79.899 Other long term (current) drug therapy
CPT/HCPCS: 36415; 80053; 83690; 85025; 93005; 96361; 96374; 96375; 99284; J1630; J2060; J2765; J7030

== ENCOUNTER 2021-12-04 04:57 | Emergency (ER) | payer MEDICAID ==
[~2021-12-04] VITALS: Ht 185.4 cm; Wt 62.0 kg
[2021-12-04] MEDS ORDERED: SODIUM CHLORIDE 0.9% 1,000 ML IV ONE ×2 (05:30→07:45)
[2021-12-04 05:59] LABS: BASOPHILS % (AUTO) 0.8 % (0.0-2.0); EOSINOPHILS % (AUTO) 0.2 % (1.0-6.0); HEMATOCRIT 36.4 % (36-46); HEMOGLOBIN 12.6 g/dL (12.0-16.0); LYMPHOCYTES # (AUTO) 1.1 K/uL (1.0-4.8); LYMPHOCYTES % (AUTO) 11.7 % (22.0-44.0); MEAN CORPUSCULAR HEMOGLOBIN 30.2 pg (26.0-34.0); MEAN CORPUSCULAR HGB CONC 34.7 G/dL (31.0-37.0); MEAN CORPUSCULAR VOLUME 87 fL (80-100); MONOCYTES % (AUTO) 10.5 % (2.0-9.0); NEUTROPHILS # (AUTO) 7.5 K/uL (1.8-7.7); NEUTROPHILS % (AUTO) 76.8 % (40.0-70.0); PLATELET COUNT (AUTO) 477 K/uL (150-450); RED BLOOD CELL COUNT(AUTO) 4.19 MIL/uL (4.00-5.20); RED CELL DISTRIBUTION WIDTH 12.5 % (11.5-14.5)
[2021-12-04] MEDS ORDERED: CAPSAICIN 0.075% 60 GM CREAM TP ONE (06:15)
[2021-12-04 06:17] LABS: ANION GAP 20 mmol/L (8-16); CALCIUM, TOTAL 9.1 mg/dL (8.8-10.5); CARBON DIOXIDE 21 mmol/L (22-29); CHLORIDE 95 mmol/L (98-107); CREATININE 0.73 mg/dL (0.60-1.30); GLOMERULAR FILTR. RATE CALC > 60 mL/min (>60); GLUCOSE,RANDOM 194 mg/dL (70-110); POTASSIUM 3.8 mmol/L (3.5-5.1); SODIUM SERUM 136 mmol/L (136-145); UREA NITROGEN, BLOOD 7 mg/dL (7-18)
[2021-12-04 06:30] LABS: ALANINE AMINOTRANSFERASE 21 U/L (12-78); ALBUMIN 3.9 g/dL (3.4-5.0); ALKALINE PHOSPHATASE 62 U/L (46-116); ASPARTATE AMINOTRANSFERASE 27 U/L (15-37); BILIRUBIN,TOTAL 1.2 mg/dL (0.1-1.0); HCG,QUANTITATIVE < 1 mIU/mL (0-6); LIPASE 68 U/L (73-393); TOTAL PROTEIN, SERUM 7.3 g/dL (6.4-8.2)
[2021-12-04] MEDS ORDERED: LORazepam 2 MG/ML VIAL IVP ONE (06:30)
[2021-12-04] MEDS ORDERED: METOCLOPRAMIDE HCL 5 MG/ML 2 ML VIAL IVP ONE (06:30)
[2021-12-04] MEDS ORDERED: HALOPERIDOL LACTATE 5 MG/ML VIAL IVP ONE (06:30)
[2021-12-04] MEDS ORDERED: ONDANSETRON HCL 4 MG/2 ML VIAL IVP ONE (07:45)
[2021-12-04 10:15] VITALS: BP 127/58
== END 2021-12-04 10:20 | disposition home or self-care (01) ==
LOC: EMS 04:58
DX: F12.988 Cannabis use, unspecified with other cannabis-induced disorder (principal); R11.10 Vomiting, unspecified; Z79.4 Long term (current) use of insulin
CPT/HCPCS: 36415; 80053; 83690; 84702; 85025; 93005; 96361; 96374; 96375; 99285; J1630; J2060; J2405; J2765; J7030

== ENCOUNTER 2022-01-06 06:08 | Emergency (ER) | payer MEDICAID ==
[~2022-01-06] VITALS: Ht 185.4 cm; Wt 63.0 kg
[2022-01-06] MEDS ORDERED: SODIUM CHLORIDE 0.9% 1,000 ML IV ONE ×2 (06:15→07:15)
[2022-01-06] MEDS ORDERED: ONDANSETRON HCL 4 MG/2 ML VIAL IVP ONE (06:15)
[2022-01-06 06:29] LABS: BASOPHILS % (AUTO) 0.2 % (0.0-2.0); EOSINOPHILS % (AUTO) 0 % (1.0-6.0); HEMATOCRIT 41.8 % (36-46); LYMPHOCYTES # (AUTO) 0.4 K/uL (1.0-4.8); LYMPHOCYTES % (AUTO) 2.4 % (22.0-44.0); MEAN CORPUSCULAR HEMOGLOBIN 30.3 pg (26.0-34.0); MEAN CORPUSCULAR HGB CONC 33.5 G/dL (31.0-37.0); MEAN CORPUSCULAR VOLUME 90 fL (80-100); MONOCYTES # (AUTO) 0.4 K/uL (0.1-1.0); MONOCYTES % (AUTO) 2.1 % (2.0-9.0); NEUTROPHILS # (AUTO) 17.5 K/uL (1.8-7.7); PLATELET COUNT (AUTO) 398 K/uL (150-450); RED BLOOD CELL COUNT(AUTO) 4.62 MIL/uL (4.00-5.20); RED CELL DISTRIBUTION WIDTH 12.8 % (11.5-14.5)
[2022-01-06] MEDS ORDERED: INSULIN REGULAR, HUMAN 100 UNITS/ML IVP ONE (06:30)
[2022-01-06 06:34] LABS: NEUTROPHILS % (AUTO) 95.3 % (40.0-70.0)
[2022-01-06] MEDS ORDERED: PB/HYOSCY/ATR/SCOP/LIDO/MAALOX 55 ML BOTTLE PO ONE (06:45)
[2022-01-06 06:50] LABS: ALANINE AMINOTRANSFERASE 28 U/L (12-78); ALBUMIN 4.7 g/dL (3.4-5.0); ALKALINE PHOSPHATASE 96 U/L (46-116); ANION GAP 16 mmol/L (8-16); ASPARTATE AMINOTRANSFERASE 24 U/L (15-37); BILIRUBIN,TOTAL 0.9 mg/dL (0.1-1.0); CALCIUM, TOTAL 10.4 mg/dL (8.8-10.5); CARBON DIOXIDE 23 mmol/L (22-29); CHLORIDE 96 mmol/L (98-107); CREATININE 1.17 mg/dL (0.60-1.30); GLOMERULAR FILTR. RATE CALC > 60 mL/min (>60); HCG,QUANTITATIVE < 1 mIU/mL (0-6); LIPASE 89 U/L (73-393); POTASSIUM 4.4 mmol/L (3.5-5.1); SODIUM SERUM 135 mmol/L (136-145); UREA NITROGEN, BLOOD 14 mg/dL (7-18)
[2022-01-06 06:54] LABS: GLUCOSE,RANDOM 514 mg/dL (70-110)
[2022-01-06 06:58] LABS: ACETONE,BLOOD NEGATIVE (NEGATIVE)
[2022-01-06] MEDS ORDERED: HALOPERIDOL LACTATE 5 MG/ML VIAL IVP ONE (07:15)
[2022-01-06] MEDS ORDERED: DiphenhydrAMINE HCL 50 MG/ML VIAL IVP ONE (07:15)
[2022-01-06] MEDS: CAPSAICIN 0.025% 60 GM CREAM TP ONE ×2 (08:21→08:24)
[2022-01-06 08:28] LABS: AMPHET/METH SCREEN,URINE NEGATIVE (NEGATIVE); BARBITURATE SCREEN, URINE NEGATIVE (NEGATIVE); BENZODIAZEPINES SCREEN,URINE NEGATIVE (NEGATIVE); CANNABINOID SCREEN,URINE POSITIVE (NEGATIVE); COCAINE SCREEN,URINE NEGATIVE (NEGATIVE); METHADONE SCREEN, URINE NEGATIVE (NEGATIVE); OPIATE SCREEN,URINE NEGATIVE (NEGATIVE)
[2022-01-06 08:29] LABS: PHENCYCLIDINE SCREEN,URINE NEGATIVE (NEGATIVE)
[2022-01-06 08:42] LABS: APPEARANCE,URINE CLEAR (CLEAR); BILIRUBIN,URINE NEGATIVE (NEGATIVE); GLUCOSE, URINE (UA) >=1000 mg/dL (NEGATIVE); KETONES,URINE >=80 mg/dL (NEGATIVE); LEUKOCYTE ESTERASE ,URINE NEGATIVE (NEGATIVE); NITRATE,URINE NEGATIVE (NEGATIVE); OCCULT BLOOD,URINE NEGATIVE (NEGATIVE); PH,URINE 5.5 (5.0-8.0); PROTEIN,URINE NEGATIVE (NEGATIVE); UROBILINOGEN,URINE 0.2 mg/dL (<=1.0)
[2022-01-06 08:58] LABS: BACTERIA,URINE None Seen /HPF (None Seen); RBC,URINE None Seen /HPF (0-2); SQUAMOUS EPITHELIAL CELL,UR Few /LPF (None Seen); WBC,URINE None Seen /HPF (0-5)
[2022-01-06] MEDS ORDERED: IOHEXOL 350 MG/ML 100 ML VIAL ONE (09:06)
[2022-01-06 11:43] VITALS: BP 155/88
[2022-01-06] MEDS ORDERED: PROM-163 PO (11:44)
== END 2022-01-06 11:58 | disposition home or self-care (01) ==
LOC: EMS 06:10
DX: E11.43 Type 2 diabetes mellitus with diabetic autonomic (poly)neuropathy (principal); K31.84 Gastroparesis; F12.90 Cannabis use, unspecified, uncomplicated; R11.2 Nausea with vomiting, unspecified; E11.65 Type 2 diabetes mellitus with hyperglycemia; F41.9 Anxiety disorder, unspecified; Z79.4 Long term (current) use of insulin; Z79.899 Other long term (current) drug therapy
CPT/HCPCS: 36415; 74177; 80053; 80307; 81001; 82009; 82962; 83690; 84702; 85025; 96361; 96374; 96375; 99285; J1200; J1630; J1815; J2405; J7030; Q9967

== ENCOUNTER 2022-04-02 02:39 | Inpatient (IN) | payer MEDICAID ==
[~2022-04-02] VITALS: Ht 185.4 cm; Wt 61.4 kg
[~2022-04-02 02:39] MED LIST changes: +PROM-163 PO
[2022-04-02 03:20] LABS: BASOPHILS % (AUTO) 0.3 % (0.0-2.0); EOSINOPHILS % (AUTO) 0 % (1.0-6.0); HEMATOCRIT 43.5 % (36-46); HEMOGLOBIN 14.4 g/dL (12.0-16.0); LYMPHOCYTES # (AUTO) 0.8 K/uL (1.0-4.8); MEAN CORPUSCULAR HEMOGLOBIN 30.1 pg (26.0-34.0); MEAN CORPUSCULAR HGB CONC 33.1 G/dL (31.0-37.0); MEAN CORPUSCULAR VOLUME 91 fL (80-100); MONOCYTES # (AUTO) 0.5 K/uL (0.1-1.0); MONOCYTES % (AUTO) 2.5 % (2.0-9.0); NEUTROPHILS # (AUTO) 19.4 K/uL (1.8-7.7); PLATELET COUNT (AUTO) 400 K/uL (150-450); RED CELL DISTRIBUTION WIDTH 12.9 % (11.5-14.5)
[2022-04-02 03:23] LABS: NEUTROPHILS % (AUTO) 93.2 % (40.0-70.0)
[2022-04-02 03:29] LABS: APPEARANCE,URINE CLEAR (CLEAR); BILIRUBIN,URINE NEGATIVE (NEGATIVE); GLUCOSE, URINE (UA) >=1000 mg/dL (NEGATIVE); KETONES,URINE =>150 mg/dL (NEGATIVE); LEUKOCYTE ESTERASE ,URINE NEGATIVE (NEGATIVE); NITRATE,URINE NEGATIVE (NEGATIVE); OCCULT BLOOD,URINE NEGATIVE (NEGATIVE); PROTEIN,URINE TRACE mg/dL (NEGATIVE); SPECIFIC GRAVITIY, URINE 1.031 (1.003-1.030); UROBILINOGEN,URINE <=1.0 mg/dL (<=1.0)
[2022-04-02] MEDS ORDERED: ONDANSETRON HCL 4 MG/2 ML VIAL IVP ONE (03:30)
[2022-04-02] MEDS ORDERED: HYDROmorphone 2 MG/ML VIAL IVP ONE (03:30)
[2022-04-02] MEDS ORDERED: SODIUM CHLORIDE 0.9% 2,000 ML IV ONE (03:30)
[2022-04-02] MEDS ORDERED: INSULIN REGULAR, HUMAN 100 UNITS/ML IVP ONE (03:30)
[2022-04-02 03:35] LABS: ALANINE AMINOTRANSFERASE 36 U/L (12-78); ALBUMIN 4.5 g/dL (3.4-5.0); ALKALINE PHOSPHATASE 91 U/L (46-116); ANION GAP 23 mmol/L (8-16); ASPARTATE AMINOTRANSFERASE 23 U/L (15-37); BILIRUBIN,TOTAL 0.9 mg/dL (0.1-1.0); CALCIUM, TOTAL 9.6 mg/dL (8.8-10.5); CARBON DIOXIDE 13 mmol/L (22-29); CHLORIDE 94 mmol/L (98-107); CREATININE 1.13 mg/dL (0.60-1.30); GLOMERULAR FILTR. RATE CALC > 60 mL/min (>60); LIPASE 41 U/L (73-393); POTASSIUM 4.4 mmol/L (3.5-5.1); SODIUM SERUM 130 mmol/L (136-145); UREA NITROGEN, BLOOD 14 mg/dL (7-18)
[2022-04-02 03:38] LABS: GLUCOSE,RANDOM 447 mg/dL (70-110)
[2022-04-02 03:45] LABS: BACTERIA,URINE None Seen /HPF (None Seen); RBC,URINE None Seen /HPF (0-2); SQUAMOUS EPITHELIAL CELL,UR Few /LPF (None Seen); WBC,URINE None Seen /HPF (0-5)
[2022-04-02 03:55] LABS: HCG,QUANTITATIVE < 1 mIU/mL (0-6)
[2022-04-02 03:57] LABS: ABG BASE EXCESS -18.1 mmol/L (-2.0-3.0); ABG CARBOXYHEMOGLOBIN 1.5 % (0.0-1.5); ABG HCO3 12.4 mmol/L (22.0-26.0); ABG METHEMOGLOBIN 0.3 % (0.0-1.5); ABG OXYGEN CONTENT 19.6 mL/dL (15.0-23.0); ABG OXYGEN SATURATION 96.3 % (95.0-98.0); ABG OXYHEMOGLOBIN 94.6 % (94.0-100.0); ABG PCO2 27 mmHg (35-45); ABG TOTAL HEMOGLOBIN 14.7 G/dL (12.0-18.0); PO2, ARTERIAL BG 97.3 mmHg (92.0-100.0); SOURCE, BLOOD GAS ARTERIAL; TEMPERATURE, FAHRENHEIT, BG 98.6 FAHREN (96.0-98.6)
[2022-04-02 03:58] LABS: ABG PH 7.196 (7.350-7.450); O2 DEVICE,BLOOD GAS ROOM AIR (ROOM AIR); SITE, BLOOD GAS LFT RADIAL
[2022-04-02 04:58] LABS: COVID AG,FIA SOURCE NASAL SWAB
[2022-04-02] MEDS ORDERED: DEXTROSE 50%-WATER 25 GM/50 ML SYRINGE IVP PRN ×3 (05:30→22:15)
[2022-04-02] MEDS ORDERED: DEXTROSE 5%-0.45% SODIUM CHL 1,000 ML IV PRN (05:30)
[2022-04-02] MEDS ORDERED: SODIUM CHLORIDE 0.9% 1,000 ML IV SCH (05:30)
[2022-04-02] MEDS ORDERED: INSULIN REGULAR, HUMAN 100 UNITS in SODIUM CHLORIDE 0.9% 99 ML IV PRN ×2 (05:30)
[2022-04-02] MEDS ORDERED: INSULIN REGULAR, HUMAN 100 UNITS/ML IVP PRN (05:30)
[2022-04-02] MEDS ORDERED: SODIUM CHLORIDE 0.45% 1,000 ML IV PRN (05:30)
[2022-04-02] MEDS ORDERED: POTASSIUM CHLORIDE 40 MEQ in SODIUM CHLORIDE 0.45% 1,000 ML IV PRN (05:30)
[2022-04-02 06:07] LABS: ANION GAP 15 mmol/L (8-16); CALCIUM, TOTAL 8.2 mg/dL (8.8-10.5); CARBON DIOXIDE 17 mmol/L (22-29); CHLORIDE 102 mmol/L (98-107); CREATININE 0.95 mg/dL (0.60-1.30); GLOMERULAR FILTR. RATE CALC > 60 mL/min (>60); GLUCOSE,RANDOM 299 mg/dL (70-110); POTASSIUM 5.3 mmol/L (3.5-5.1); SODIUM SERUM 134 mmol/L (136-145); UREA NITROGEN, BLOOD 15 mg/dL (7-18)
[2022-04-02] MEDS: HEPARIN SODIUM,PORCINE 5,000 UNITS/ML VIAL SQ SCH ×3 (07:54→23:39)
[2022-04-02] MEDS: ONDANSETRON HCL 4 MG/2 ML VIAL IVP PRN ×3 (08:16→20:05)
[2022-04-02] MEDS: FAMOTIDINE 10 MG/ML 2 ML VIAL IVP SCH ×2 (08:21→20:05)
[2022-04-02 09:23] LABS: ABG BASE EXCESS -14.8 mmol/L (-2.0-3.0); ABG CARBOXYHEMOGLOBIN 1.4 % (0.0-1.5); ABG HCO3 14.1 mmol/L (22.0-26.0); ABG METHEMOGLOBIN 0.3 % (0.0-1.5); ABG OXYGEN CONTENT 17.5 mL/dL (15.0-23.0); ABG OXYGEN SATURATION 97.3 % (95.0-98.0); ABG OXYHEMOGLOBIN 95.6 % (94.0-100.0); ABG PCO2 30 mmHg (35-45); ABG TOTAL HEMOGLOBIN 12.9 G/dL (12.0-18.0); PO2, ARTERIAL BG 98.5 mmHg (92.0-100.0); SOURCE, BLOOD GAS ARTERIAL; TEMPERATURE, FAHRENHEIT, BG 97.9 FAHREN (96.0-98.6)
[2022-04-02 09:25] LABS: ABG A-A DIFF O2 15.8 mmHg (10-20.0); ABG PH 7.243 (7.350-7.450); O2 DEVICE,BLOOD GAS ROOM AIR (ROOM AIR); SITE, BLOOD GAS RT RADIAL
[2022-04-02 09:25] LABS: ANION GAP 16 mmol/L (8-16); CALCIUM, TOTAL 7.9 mg/dL (8.8-10.5); CARBON DIOXIDE 15 mmol/L (22-29); CHLORIDE 106 mmol/L (98-107); CREATININE 0.82 mg/dL (0.60-1.30); GLOMERULAR FILTR. RATE CALC > 60 mL/min (>60); GLUCOSE,RANDOM 190 mg/dL (70-110); POTASSIUM 4.5 mmol/L (3.5-5.1); SODIUM SERUM 137 mmol/L (136-145); UREA NITROGEN, BLOOD 13 mg/dL (7-18)
[2022-04-02] MEDS: HYDROmorphone 2 MG/ML VIAL IVP PRN ×2 (09:47→20:05)
[2022-04-02] MEDS: POTASSIUM CHL 20 MEQ/0.45% NS 1,000 ML IV PRN ×2 (11:30→20:45)
[2022-04-02 11:33] LABS: GLUCOMETER DEV NAME(LOC) ERT.5; GLUCOSE,POINT OF CARE 111 MG/DL (70-110)
[2022-04-02 11:33] LABS: GLUCOMETER DEV NAME(LOC) ERT.5; GLUCOSE,POINT OF CARE 224 MG/DL (70-110)
[2022-04-02 11:33] LABS: GLUCOMETER DEV NAME(LOC) ERT.5; GLUCOSE,POINT OF CARE 408 MG/DL (70-110)
[2022-04-02 11:33] LABS: GLUCOMETER DEV NAME(LOC) ERT.5; GLUCOSE,POINT OF CARE 182 MG/DL (70-110)
[2022-04-02 11:33] LABS: GLUCOMETER DEV NAME(LOC) ERT.5; GLUCOSE,POINT OF CARE 154 MG/DL (70-110)
[2022-04-02 11:33] LABS: GLUCOMETER DEV NAME(LOC) ERT.5; GLUCOSE,POINT OF CARE 313 MG/DL (70-110)
[2022-04-02 11:33] LABS: GLUCOMETER DEV NAME(LOC) ERT.5; GLUCOSE,POINT OF CARE 332 MG/DL (70-110)
[2022-04-02 12:26] LABS: GLUCOMETER DEV NAME(LOC) ERT.5; GLUCOSE,POINT OF CARE 116 MG/DL (70-110)
[2022-04-02 13:16] LABS: GLUCOMETER DEV NAME(LOC) ERT.5; GLUCOSE,POINT OF CARE 103 MG/DL (70-110)
[2022-04-02 13:30] LABS: ANION GAP 14 mmol/L (8-16); CALCIUM, TOTAL 8.3 mg/dL (8.8-10.5); CARBON DIOXIDE 16 mmol/L (22-29); CHLORIDE 106 mmol/L (98-107); CREATININE 0.79 mg/dL (0.60-1.30); GLOMERULAR FILTR. RATE CALC > 60 mL/min (>60); GLUCOSE,RANDOM 119 mg/dL (70-110); POTASSIUM 4.5 mmol/L (3.5-5.1); SODIUM SERUM 136 mmol/L (136-145); UREA NITROGEN, BLOOD 12 mg/dL (7-18)
[2022-04-02] MEDS ORDERED: INSULIN LISPRO 100 UNITS/ML SQ PRN ×2 (13:30→22:15)
[2022-04-02 14:21] LABS: GLUCOMETER DEV NAME(LOC) ERT.5; GLUCOSE,POINT OF CARE 128 MG/DL (70-110)
[2022-04-02 15:16] LABS: GLUCOMETER DEV NAME(LOC) ERT.5; GLUCOSE,POINT OF CARE 137 MG/DL (70-110)
[2022-04-02 15:46] LABS: AMPHET/METH SCREEN,URINE NEGATIVE (NEGATIVE); BARBITURATE SCREEN, URINE NEGATIVE (NEGATIVE); BENZODIAZEPINES SCREEN,URINE NEGATIVE (NEGATIVE); CANNABINOID SCREEN,URINE POSITIVE (NEGATIVE); COCAINE SCREEN,URINE NEGATIVE (NEGATIVE); METHADONE SCREEN, URINE NEGATIVE (NEGATIVE); OPIATE SCREEN,URINE NEGATIVE (NEGATIVE); PHENCYCLIDINE SCREEN,URINE NEGATIVE (NEGATIVE)
[2022-04-02] MEDS: ACETAMINOPHEN 325 MG TABLET PO PRN (15:52)
[2022-04-02 16:26] LABS: GLUCOMETER DEV NAME(LOC) ERT.5; GLUCOSE,POINT OF CARE 148 MG/DL (70-110)
[2022-04-02 17:23] LABS: ANION GAP 13 mmol/L (8-16); CALCIUM, TOTAL 7.9 mg/dL (8.8-10.5); CARBON DIOXIDE 19 mmol/L (22-29); CHLORIDE 102 mmol/L (98-107); CREATININE 0.69 mg/dL (0.60-1.30); GLOMERULAR FILTR. RATE CALC > 60 mL/min (>60); GLUCOSE,RANDOM 141 mg/dL (70-110); POTASSIUM 4.2 mmol/L (3.5-5.1); SODIUM SERUM 134 mmol/L (136-145); UREA NITROGEN, BLOOD 10 mg/dL (7-18)
[2022-04-02 17:26] LABS: GLUCOMETER DEV NAME(LOC) ERT.5; GLUCOSE,POINT OF CARE 137 MG/DL (70-110)
[2022-04-02 18:26] LABS: GLUCOMETER DEV NAME(LOC) ERT.5; GLUCOSE,POINT OF CARE 113 MG/DL (70-110)
[2022-04-02 19:16] LABS: GLUCOMETER DEV NAME(LOC) ERT.5; GLUCOSE,POINT OF CARE 108 MG/DL (70-110)
[2022-04-02 20:10] LABS: GLUCOMETER DEV NAME(LOC) ERT.5; GLUCOSE,POINT OF CARE 95 MG/DL (70-110)
[2022-04-02 21:16] LABS: GLUCOMETER DEV NAME(LOC) ERT.5; GLUCOSE,POINT OF CARE 123 MG/DL (70-110)
[2022-04-02 22:02] LABS: ANION GAP 11 mmol/L (8-16); CALCIUM, TOTAL 7.7 mg/dL (8.8-10.5); CARBON DIOXIDE 21 mmol/L (22-29); CHLORIDE 103 mmol/L (98-107); CREATININE 0.71 mg/dL (0.60-1.30); GLOMERULAR FILTR. RATE CALC > 60 mL/min (>60); GLUCOSE,RANDOM 124 mg/dL (70-110); POTASSIUM 3.6 mmol/L (3.5-5.1); SODIUM SERUM 135 mmol/L (136-145); UREA NITROGEN, BLOOD 9 mg/dL (7-18)
[2022-04-02 22:21] LABS: GLUCOMETER DEV NAME(LOC) ERT.5; GLUCOSE,POINT OF CARE 118 MG/DL (70-110)
[2022-04-02] MEDS: INSULIN GLARGINE,HUM.REC.ANLOG 100 UNITS/ML SQ SCH (22:46)
[2022-04-02] MEDS: RINGERS SOLUTION,LACTATED 1,000 ML IV SCH (22:46)
[2022-04-02 23:56] LABS: GLUCOMETER DEV NAME(LOC) ERT.5; GLUCOSE,POINT OF CARE 123 MG/DL (70-110)
[2022-04-03 01:58] VITALS: BP 142/95
[2022-04-03] MEDS: ONDANSETRON HCL 4 MG/2 ML VIAL IVP PRN (02:08)
[2022-04-03] MEDS: HYDROmorphone 2 MG/ML VIAL IVP PRN ×3 (04:06→20:12)
[2022-04-03 04:44] VITALS: BP 135/87
[2022-04-03 04:52] LABS: GLUCOMETER DEV NAME(LOC) 5N.1C; GLUCOSE,POINT OF CARE 195 MG/DL (70-110)
[2022-04-03 06:58] LABS: BASOPHILS % (AUTO) 0.2 % (0.0-2.0); EOSINOPHILS % (AUTO) 0.1 % (1.0-6.0); HEMATOCRIT 37.3 % (36-46); HEMOGLOBIN 12.6 g/dL (12.0-16.0); LYMPHOCYTES # (AUTO) 1.4 K/uL (1.0-4.8); LYMPHOCYTES % (AUTO) 12.6 % (22.0-44.0); MEAN CORPUSCULAR HGB CONC 33.9 G/dL (31.0-37.0); MEAN CORPUSCULAR VOLUME 89 fL (80-100); MONOCYTES # (AUTO) 0.4 K/uL (0.1-1.0); MONOCYTES % (AUTO) 3.8 % (2.0-9.0); NEUTROPHILS # (AUTO) 9.5 K/uL (1.8-7.7); NEUTROPHILS % (AUTO) 83.3 % (40.0-70.0); PLATELET COUNT (AUTO) 365 K/uL (150-450); RED BLOOD CELL COUNT(AUTO) 4.22 MIL/uL (4.00-5.20); RED CELL DISTRIBUTION WIDTH 13.3 % (11.5-14.5)
[2022-04-03 07:00] VITALS: BP 130/96
[2022-04-03 07:05] LABS: ANION GAP 12 mmol/L (8-16); CALCIUM, TOTAL 8.7 mg/dL (8.8-10.5); CARBON DIOXIDE 20 mmol/L (22-29); CHLORIDE 101 mmol/L (98-107); CREATININE 0.77 mg/dL (0.60-1.30); GLOMERULAR FILTR. RATE CALC > 60 mL/min (>60); GLUCOSE,RANDOM 229 mg/dL (70-110); POTASSIUM 4.4 mmol/L (3.5-5.1); SODIUM SERUM 133 mmol/L (136-145); UREA NITROGEN, BLOOD 7 mg/dL (7-18)
[2022-04-03 07:06] LABS: GLUCOMETER DEV NAME(LOC) 5N.1C; GLUCOSE,POINT OF CARE 225 MG/DL (70-110)
[2022-04-03] MEDS: METOCLOPRAMIDE HCL 5 MG/ML 2 ML VIAL IVP SCH ×3 (09:35→23:20)
[2022-04-03] MEDS: RINGERS SOLUTION,LACTATED 1,000 ML IV SCH ×2 (09:41→20:33)
[2022-04-03] MEDS: HEPARIN SODIUM,PORCINE 5,000 UNITS/ML VIAL SQ SCH ×3 (09:41→23:20)
[2022-04-03] MEDS ORDERED: PANTOPRAZOLE SODIUM 40 MG/VIAL IVP SCH (10:15)
[2022-04-03 11:02] VITALS: BP 124/73
[2022-04-03] MEDS ORDERED: DEXTROSE 50%-WATER 25 GM/50 ML SYRINGE IVP PRN (11:30)
[2022-04-03] MEDS: PANTOPRAZOLE SODIUM 40 MG/VIAL IVP SCH ×2 (12:13→20:33)
[2022-04-03 15:18] VITALS: BP 126/80
[2022-04-03] MEDS: INSULIN LISPRO 100 UNITS/ML SQ PRN ×2 (17:52→20:35)
[2022-04-03 18:37] LABS: GLUCOMETER DEV NAME(LOC) 5S.1B; GLUCOSE,POINT OF CARE 176 MG/DL (70-110)
[2022-04-03 20:10] VITALS: BP 136/87
[2022-04-03] MEDS: INSULIN GLARGINE,HUM.REC.ANLOG 100 UNITS/ML SQ SCH (20:35)
[2022-04-03 20:36] LABS: GLUCOMETER DEV NAME(LOC) 5N.1C; GLUCOSE,POINT OF CARE 152 MG/DL (70-110)
[2022-04-03] MEDS ORDERED: INSULIN GLARGINE,HUM.REC.ANLOG 100 UNITS/ML SQ SCH (21:00)
[2022-04-03] MEDS: ACETAMINOPHEN 325 MG TABLET PO PRN (23:25)
[2022-04-04 00:20] VITALS: BP 150/80
[2022-04-04] MEDS: ONDANSETRON HCL 4 MG/2 ML VIAL IVP PRN (03:54)
[2022-04-04] MEDS: HYDROmorphone 2 MG/ML VIAL IVP PRN ×3 (03:58→19:47)
[2022-04-04 04:31] VITALS: BP 146/87
[2022-04-04] MEDS: INSULIN LISPRO 100 UNITS/ML SQ PRN ×2 (06:47→11:56)
[2022-04-04] MEDS: RINGERS SOLUTION,LACTATED 1,000 ML IV SCH ×2 (06:50→16:57)
[2022-04-04 06:51] LABS: GLUCOMETER DEV NAME(LOC) 5N.1C; GLUCOSE,POINT OF CARE 125 MG/DL (70-110)
[2022-04-04 07:46] VITALS: BP 142/77
[2022-04-04] MEDS: PANTOPRAZOLE SODIUM 40 MG/VIAL IVP SCH ×2 (08:27→20:39)
[2022-04-04] MEDS: HEPARIN SODIUM,PORCINE 5,000 UNITS/ML VIAL SQ SCH ×3 (08:29→23:20)
[2022-04-04] MEDS: METOCLOPRAMIDE HCL 5 MG/ML 2 ML VIAL IVP SCH ×3 (08:29→23:20)
[2022-04-04 11:23] VITALS: BP 138/72
[2022-04-04] MEDS ORDERED: HALOPERIDOL LACTATE 5 MG/ML VIAL IM ONE (12:00)
[2022-04-04 13:55] LABS: ANION GAP 16 mmol/L (8-16); CALCIUM, TOTAL 8.8 mg/dL (8.8-10.5); CARBON DIOXIDE 23 mmol/L (22-29); CHLORIDE 98 mmol/L (98-107); CREATININE 0.73 mg/dL (0.60-1.30); GLOMERULAR FILTR. RATE CALC > 60 mL/min (>60); GLUCOSE,RANDOM 201 mg/dL (70-110); POTASSIUM 3.3 mmol/L (3.5-5.1)
[2022-04-04 14:10] LABS: SODIUM SERUM 137 mmol/L (136-145)
[2022-04-04] MEDS ORDERED: POTASSIUM CHLORIDE 20 MEQ ER TABLET PO ONE (14:30)
[2022-04-04 15:06] LABS: UREA NITROGEN, BLOOD 3 mg/dL (7-18)
[2022-04-04 16:28] VITALS: BP 111/71
[2022-04-04 17:36] LABS: GLUCOMETER DEV NAME(LOC) 5N.3; GLUCOSE,POINT OF CARE 212 MG/DL (70-110)
[2022-04-04] MEDS ORDERED: INSULIN LISPRO 100 UNITS/ML SQ ONE (17:45)
[2022-04-04 18:07] LABS: GLUCOMETER DEV NAME(LOC) 6N.1; GLUCOSE,POINT OF CARE 415 MG/DL (70-110)
[2022-04-04 20:00] VITALS: BP 136/82
[2022-04-04 20:31] LABS: GLUCOMETER DEV NAME(LOC) 5N.1C; GLUCOSE,POINT OF CARE 139 MG/DL (70-110)
[2022-04-04] MEDS: LORazepam 0.5 MG TABLET PO SCH (20:38)
[2022-04-04] MEDS: INSULIN GLARGINE,HUM.REC.ANLOG 100 UNITS/ML SQ SCH (20:39)
[2022-04-04 23:31] LABS: GLUCOMETER DEV NAME(LOC) 6N.1; GLUCOSE,POINT OF CARE 54 MG/DL (70-110)
[2022-04-04 23:31] LABS: GLUCOMETER DEV NAME(LOC) 6N.1; GLUCOSE,POINT OF CARE 141 MG/DL (70-110)
[2022-04-05 04:00] VITALS: BP 108/67
[2022-04-05] MEDS: HYDROmorphone 2 MG/ML VIAL IVP PRN (04:12)
[2022-04-05] MEDS: RINGERS SOLUTION,LACTATED 1,000 ML IV SCH (04:12)
[2022-04-05 05:45] LABS: ANION GAP 7 mmol/L (8-16); CALCIUM, TOTAL 8.5 mg/dL (8.8-10.5); CARBON DIOXIDE 30 mmol/L (22-29); CHLORIDE 103 mmol/L (98-107); CREATININE 0.51 mg/dL (0.60-1.30); GLUCOSE,RANDOM 170 mg/dL (70-110); SODIUM SERUM 140 mmol/L (136-145); UREA NITROGEN, BLOOD 3 mg/dL (7-18)
[2022-04-05 05:47] LABS: GLOMERULAR FILTR. RATE CALC > 60 mL/min (>60)
[2022-04-05] MEDS: INSULIN LISPRO 100 UNITS/ML SQ PRN ×2 (05:56→12:07)
[2022-04-05 07:25] LABS: GLUCOMETER DEV NAME(LOC) 6N.1; GLUCOSE,POINT OF CARE 163 MG/DL (70-110)
[2022-04-05 08:07] VITALS: BP 104/66
[2022-04-05] MEDS: PANTOPRAZOLE SODIUM 40 MG/VIAL IVP SCH (08:41)
[2022-04-05] MEDS: HEPARIN SODIUM,PORCINE 5,000 UNITS/ML VIAL SQ SCH (08:41)
[2022-04-05] MEDS: METOCLOPRAMIDE HCL 5 MG/ML 2 ML VIAL IVP SCH (08:41)
[2022-04-05] MEDS: INSULIN GLARGINE,HUM.REC.ANLOG 100 UNITS/ML SQ SCH (08:42)
[2022-04-05] MEDS: LORazepam 0.5 MG TABLET PO SCH (08:52)
[2022-04-05] MEDS ORDERED: POTASSIUM CHLORIDE 20 MEQ ER TABLET PO ONE (11:15)
[2022-04-05] MEDS ORDERED: METO5TAB95 PO (11:16)
[2022-04-05] MEDS ORDERED: PERCT PO (11:16)
[2022-04-05] MEDS ORDERED: INSU100I26 SQ (11:16)
[2022-04-05 13:11] LABS: GLUCOMETER DEV NAME(LOC) 6N.1; GLUCOSE,POINT OF CARE 230 MG/DL (70-110)
[2022-04-05 15:35] VITALS: BP 117/77
== END 2022-04-05 16:30 | disposition home or self-care (01) | DRG 420 ==
LOC: EMS 02:41 → ICUN 17:28 → 5S 04-03 01:03 → 6S 04-04 15:15
PROVIDERS: ADMIT Internal Medicine; ATTEND Internal Medicine
DX: E10.10 Type 1 diabetes mellitus with ketoacidosis without coma (principal); E43 Unspecified severe protein-calorie malnutrition; R65.10 Systemic inflammatory response syndrome (SIRS) of non-infectious origin without acute organ dysfunction; K31.84 Gastroparesis; E87.1 Hypo-osmolality and hyponatremia; F12.90 Cannabis use, unspecified, uncomplicated; D72.829 Elevated white blood cell count, unspecified; E10.43 Type 1 diabetes mellitus with diabetic autonomic (poly)neuropathy; Z20.822 Contact with and (suspected) exposure to COVID-19; Z82.49 Family history of ischemic heart disease and other diseases of the circulatory system; Z83.3 Family history of diabetes mellitus; Z91.19 Patient's noncompliance with other medical treatment and regimen; Z79.4 Long term (current) use of insulin; Z68.1 Body mass index [BMI] 19.9 or less, adult
CPT/HCPCS: 36600; 71045; 80048; 80053; 81001; 81003; 82805; 82962; 83690; 83735; 84145; 84702; 85025; 93005; 99291; C9113; G0378; J1170; J1630; J1644; J1815; J2405; J2765; J3480; J3490; J7030; J7050; J7120; 36415-L1; 36415-TC

== ENCOUNTER 2023-06-30 13:14 | Emergency (ER) | payer MEDICAID ==
[~2023-06-30] VITALS: Ht 185.4 cm; Wt 68.2 kg
[~2023-06-30 13:14] MED LIST changes: +CARV12 PO; +INSLAN SQ; -INSU100I26 SQ; -INSU100V SQ; +METH-386 PO; +PANT-31 PO; -PROM-163 PO
[2023-06-30 13:54] LABS: BASOPHILS % (AUTO) 0.7 % (0.0-2.0); EOSINOPHILS % (AUTO) 0.5 % (1.0-6.0); HEMATOCRIT 38.3 % (36-46); HEMOGLOBIN 12.7 g/dL (12.0-16.0); LYMPHOCYTES # (AUTO) 1.9 K/uL (1.0-4.8); LYMPHOCYTES % (AUTO) 18.6 % (22.0-44.0); MEAN CORPUSCULAR HEMOGLOBIN 30.2 pg (26.0-34.0); MEAN CORPUSCULAR HGB CONC 33.3 G/dL (31.0-37.0); MEAN CORPUSCULAR VOLUME 91 fL (80-100); MONOCYTES # (AUTO) 0.8 K/uL (0.1-1.0); MONOCYTES % (AUTO) 7.6 % (2.0-9.0); NEUTROPHILS # (AUTO) 7.3 K/uL (1.8-7.7); NEUTROPHILS % (AUTO) 72.6 % (40.0-70.0); PLATELET COUNT (AUTO) 322 K/uL (150-450); RED BLOOD CELL COUNT(AUTO) 4.21 MIL/uL (4.00-5.20); RED CELL DISTRIBUTION WIDTH 13.4 % (11.5-14.5)
[2023-06-30 14:03] LABS: ANION GAP 16 mmol/L (8-16); CALCIUM, TOTAL 9.5 mg/dL (8.8-10.5); CARBON DIOXIDE 25 mmol/L (22-29); CHLORIDE 95 mmol/L (98-107); CREATININE 0.84 mg/dL (0.60-1.30); GLOMERULAR FILTR. RATE CALC > 60 mL/min (>60); GLUCOSE,RANDOM 325 mg/dL (70-110); POTASSIUM 3.8 mmol/L (3.5-5.1); SODIUM SERUM 136 mmol/L (136-145)
[2023-06-30 14:07] LABS: ACETONE,BLOOD NEGATIVE (NEGATIVE)
[2023-06-30 14:29] LABS: ALANINE AMINOTRANSFERASE 18 U/L (12-78); ALKALINE PHOSPHATASE 94 U/L (46-116); ASPARTATE AMINOTRANSFERASE 21 U/L (15-37); BILIRUBIN,TOTAL 0.9 mg/dL (0.1-1.0); CREATINE KINASE, TOTAL ONLY 272 U/L (26-192); TOTAL PROTEIN, SERUM 7.8 g/dL (6.4-8.2)
[2023-06-30] MEDS ORDERED: SODIUM CHLORIDE 0.9% 1,000 ML IV ONE ×3 (14:45→16:30)
[2023-06-30] MEDS ORDERED: ONDANSETRON HCL 4 MG/2 ML VIAL IVP ONE (14:45)
[2023-06-30] MEDS ORDERED: ACETAMINOPHEN 1000 MG/ISO-OSM 100 ML IV ONE (14:45)
[2023-06-30 15:23] LABS: HCG,QUANTITATIVE < 1 mIU/mL (0-6); LIPASE 28 U/L (16-77)
[2023-06-30] MEDS ORDERED: HALOPERIDOL LACTATE 5 MG/ML VIAL IVP ONE ×2 (15:30→19:45)
[2023-06-30 17:31] LABS: APPEARANCE,URINE CLEAR (CLEAR); BILIRUBIN,URINE NEGATIVE (NEGATIVE); GLUCOSE, URINE (UA) >=1000 mg/dL (NEGATIVE); KETONES,URINE 40-60 mg/dL (NEGATIVE); LEUKOCYTE ESTERASE ,URINE NEGATIVE (NEGATIVE); NITRATE,URINE POSITIVE (NEGATIVE); OCCULT BLOOD,URINE NEGATIVE (NEGATIVE); PROTEIN,URINE TRACE mg/dL (NEGATIVE); SPECIFIC GRAVITIY, URINE 1.031 (1.003-1.030); UROBILINOGEN,URINE <=1.0 mg/dL (<=1.0)
[2023-06-30 17:37] LABS: AMPHET/METH SCREEN,URINE NEGATIVE (NEGATIVE); BARBITURATE SCREEN, URINE NEGATIVE (NEGATIVE); BENZODIAZEPINES SCREEN,URINE NEGATIVE (NEGATIVE); CANNABINOID SCREEN,URINE POSITIVE (NEGATIVE); COCAINE SCREEN,URINE NEGATIVE (NEGATIVE); METHADONE SCREEN, URINE NEGATIVE (NEGATIVE); OPIATE SCREEN,URINE NEGATIVE (NEGATIVE); PHENCYCLIDINE SCREEN,URINE NEGATIVE (NEGATIVE)
[2023-06-30 17:40] LABS: BACTERIA,URINE Many /HPF (None Seen); RBC,URINE 0-2 /HPF (0-2); SQUAMOUS EPITHELIAL CELL,UR Few /LPF (None Seen); WBC,URINE 0-2 /HPF (0-5)
[2023-06-30] MEDS ORDERED: PB/HYOSCY/ATR/SCOP/LIDO/MAALOX 55 ML BOTTLE PO ONE (18:00)
[2023-06-30 18:55] LABS: GLUCOMETER DEV NAME(LOC) ER.6
[2023-06-30] MEDS ORDERED: ONDA-104 PO (20:50)
[2023-06-30 20:56] VITALS: BP 122/70; PULSE 92; RESP 17; TEMP 98.6
[2023-06-30] MEDS ORDERED: NITR-75 PO (21:14)
== END 2023-06-30 21:15 | disposition home or self-care (01) ==
LOC: EMS 13:16
DX: E11.65 Type 2 diabetes mellitus with hyperglycemia (principal); R11.2 Nausea with vomiting, unspecified
CPT/HCPCS: 99285; 96365; 71045; 96375; 80053; 81001; 82009; 82550; 82962; 83605; 83690; 83735; 84702; 85025; 87040; 36415; 87086; 87186; 93005; 96376; 80307; J1630; J2405; J0131

== ENCOUNTER 2023-07-16 18:09 | Inpatient (IN) | payer MEDICAID ==
[~2023-07-16] VITALS: Ht 185.4 cm; Wt 63.0 kg
[~2023-07-16 18:09] MED LIST changes: +NITR-75 PO; +ONDA-104 PO
[2023-07-16] MEDS ORDERED: MAG HYDROX/AL HYDROX/SIMETH 30 ML SUSP UDCUP PO ONE (18:30)
[2023-07-16] MEDS ORDERED: FAMOTIDINE 20 MG/2 ML VIAL IVP ONE (18:30)
[2023-07-16] MEDS ORDERED: ONDANSETRON HCL 4 MG/2 ML VIAL IVP ONE (18:30)
[2023-07-16] MEDS ORDERED: MORPHINE SULFATE 2 MG/ML SYRINGE IVP ONE (18:30)
[2023-07-16] MEDS ORDERED: SODIUM CHLORIDE 0.9% 1,000 ML IV ONE (18:30)
[2023-07-16 18:52] LABS: ABG BASE EXCESS -10.4 mmol/L (-2.0-3.0); ABG CARBOXYHEMOGLOBIN 0.7 % (0.0-1.5); ABG HCO3 17.8 mmol/L (22.0-26.0); ABG METHEMOGLOBIN 0.1 % (0.0-1.5); ABG OXYGEN CONTENT 19.5 mL/dL (15.0-23.0); ABG OXYGEN SATURATION 97.8 % (95.0-98.0); ABG PH 7.402 (7.350-7.450); ABG TOTAL HEMOGLOBIN 14.2 G/dL (12.0-18.0); PO2, ARTERIAL BG 104.3 mmHg (92.0-100.0); SOURCE, BLOOD GAS ARTERIAL
[2023-07-16 19:04] LABS: ABG PCO2 24 mmHg (35-45)
[2023-07-16 19:05] LABS: ABG A-A DIFF O2 17.4 mmHg (10-20.0); ALLEN TEST, BLOOD GAS Positive; O2 DEVICE,BLOOD GAS ROOM AIR (ROOM AIR); SITE, BLOOD GAS LFT RADIAL
[2023-07-16] MEDS ORDERED: DiphenhydrAMINE HCL 50 MG/ML VIAL IVP ONE (19:30)
[2023-07-16] MEDS ORDERED: METOCLOPRAMIDE HCL 5 MG/ML 2 ML VIAL IVP ONE (19:30)
[2023-07-16 19:50] LABS: BASOPHILS % (AUTO) 0.6 % (0.0-2.0); EOSINOPHILS % (AUTO) 0.1 % (1.0-6.0); HEMATOCRIT 39.9 % (36-46); HEMOGLOBIN 13.2 g/dL (12.0-16.0); LYMPHOCYTES # (AUTO) 0.8 K/uL (1.0-4.8); LYMPHOCYTES % (AUTO) 7.9 % (22.0-44.0); MEAN CORPUSCULAR HEMOGLOBIN 30.1 pg (26.0-34.0); MEAN CORPUSCULAR HGB CONC 32.9 G/dL (31.0-37.0); MEAN CORPUSCULAR VOLUME 91 fL (80-100); MONOCYTES # (AUTO) 0.4 K/uL (0.1-1.0); MONOCYTES % (AUTO) 4.3 % (2.0-9.0); NEUTROPHILS # (AUTO) 8.8 K/uL (1.8-7.7); PLATELET COUNT (AUTO) 438 K/uL (150-450); RED BLOOD CELL COUNT(AUTO) 4.37 MIL/uL (4.00-5.20); RED CELL DISTRIBUTION WIDTH 13.8 % (11.5-14.5); WHITE BLOOD COUNT (AUTO) 10.1 K/uL (4.5-11.0)
[2023-07-16 19:51] LABS: NEUTROPHILS % (AUTO) 87.1 % (40.0-70.0)
[2023-07-16 20:09] LABS: ALANINE AMINOTRANSFERASE 11 U/L (12-78); ALBUMIN 4.3 g/dL (3.4-5.0); ALKALINE PHOSPHATASE 80 U/L (46-116); ASPARTATE AMINOTRANSFERASE 14 U/L (15-37); BILIRUBIN,TOTAL 0.9 mg/dL (0.1-1.0); CALCIUM, TOTAL 9.5 mg/dL (8.8-10.5); CARBON DIOXIDE 15 mmol/L (22-29); CHLORIDE 93 mmol/L (98-107); CREATINE KINASE, TOTAL ONLY 61 U/L (26-192); CREATININE 1.05 mg/dL (0.60-1.30); GLOMERULAR FILTR. RATE CALC > 60 mL/min (>60); TOTAL PROTEIN, SERUM 8.1 g/dL (6.4-8.2); UREA NITROGEN, BLOOD 17 mg/dL (7-18)
[2023-07-16 20:14] LABS: POTASSIUM 4.1 mmol/L (3.5-5.1); SODIUM SERUM 132 mmol/L (136-145)
[2023-07-16 20:16] LABS: GLUCOSE,RANDOM 412 mg/dL (70-110)
[2023-07-16 20:17] LABS: B-TYPE NATRIURETIC PEPTIDE 8 pg/mL (0-100); TROPONIN I-HIGH SENSITIVITY Less Than 4 ng/L (<51)
[2023-07-16] MEDS ORDERED: SODIUM CHLORIDE 0.45% 1,000 ML IV PRN ×2 (20:45→21:15)
[2023-07-16] MEDS ORDERED: INSULIN REGULAR, HUMAN 100 UNITS/ML IVP PRN ×2 (20:45→21:15)
[2023-07-16] MEDS ORDERED: INSULIN REGULAR, HUMAN 100 UNITS in SODIUM CHLORIDE 0.9% 99 ML IV PRN ×2 (20:45)
[2023-07-16] MEDS ORDERED: POTASSIUM CHLORIDE 40 MEQ in SODIUM CHLORIDE 0.45% 1,000 ML IV PRN ×2 (20:45→21:15)
[2023-07-16] MEDS ORDERED: INSULIN REGULAR, HUMAN 100 UNITS/ML IVP ONE (20:45)
[2023-07-16] MEDS ORDERED: DEXTROSE 50%-WATER 25 GM/50 ML SYRINGE IVP PRN ×2 (20:45→21:15)
[2023-07-16] MEDS ORDERED: DEXTROSE 5%-0.45% SODIUM CHL 1,000 ML IV PRN ×2 (20:45→21:15)
[2023-07-16] MEDS ORDERED: POTASSIUM CHL 20 MEQ/0.45% NS 1,000 ML IV PRN ×2 (20:45→21:15)
[2023-07-16] MEDS ORDERED: SODIUM CHLORIDE 0.9% 1,000 ML IV SCH ×2 (20:45→21:15)
[2023-07-16] MEDS ORDERED: NALOXONE HCL 1 MG/ML 2 ML SYRINGE IVP PRN (21:15)
[2023-07-16] MEDS ORDERED: ACETAMINOPHEN 325 MG TABLET PO PRN (21:15)
[2023-07-16] MEDS: HYDROmorphone HCL 2 MG/ML SYRINGE IVP PRN (21:27)
[2023-07-16 21:33] LABS: ANION GAP 26 mmol/L (8-16)
[2023-07-16 21:58] LABS: APPEARANCE,URINE CLEAR (CLEAR); BILIRUBIN,URINE NEGATIVE (NEGATIVE); COLOR,URINE LIGHT YELLOW (YELLOW); GLUCOSE, URINE (UA) >=1000 mg/dL (NEGATIVE); KETONES,URINE =>150 mg/dL (NEGATIVE); LEUKOCYTE ESTERASE ,URINE NEGATIVE (NEGATIVE); NITRATE,URINE NEGATIVE (NEGATIVE); OCCULT BLOOD,URINE NEGATIVE (NEGATIVE); PH,URINE 5.5 (5.0-8.0); PROTEIN,URINE 30-70 mg/dL (NEGATIVE); SPECIFIC GRAVITIY, URINE 1.031 (1.003-1.030); UROBILINOGEN,URINE <=1.0 mg/dL (<=1.0)
[2023-07-16 22:09] LABS: OSMOLALITY,URINE 776 mOsm/kg (50-1500)
[2023-07-16 22:15] LABS: BACTERIA,URINE None Seen /HPF (None Seen); RBC,URINE 0-2 /HPF (0-2); SQUAMOUS EPITHELIAL CELL,UR Few /LPF (None Seen)
[2023-07-17] VITALS (8 sets, daily range): BP systolic 106–151; BP diastolic 65–88; PULSE 95–134; RESP 17–20; TEMP 97.7–99.2
[2023-07-17] MEDS ORDERED: INSULIN REGULAR, HUMAN 100 UNITS in SODIUM CHLORIDE 0.9% 99 ML IV PRN ×2
[2023-07-17 00:13] LABS: ANION GAP 20 mmol/L (8-16); CARBON DIOXIDE 15 mmol/L (22-29); CHLORIDE 99 mmol/L (98-107); GLOMERULAR FILTR. RATE CALC > 60 mL/min (>60); GLUCOSE,RANDOM 292 mg/dL (70-110); POTASSIUM 4.6 mmol/L (3.5-5.1); SODIUM SERUM 134 mmol/L (136-145); UREA NITROGEN, BLOOD 17 mg/dL (7-18)
[2023-07-17 00:46] LABS: GLUCOSE,POINT OF CARE 360 MG/DL (70-110)
[2023-07-17] MEDS: ETHYL ALCOHOL 62% ANTISEPTIC NASAL SANITIZER 0.6 ML AMPUL NASAL SCH ×3 (01:09→20:50)
[2023-07-17] MEDS: HEPARIN SODIUM,PORCINE 5,000 UNITS/ML VIAL SQ SCH ×3 (01:09→16:00)
[2023-07-17 01:41] LABS: GLUCOSE,POINT OF CARE 208 MG/DL (70-110)
[2023-07-17 04:21] LABS: BASOPHILS % (AUTO) 0.6 % (0.0-2.0); EOSINOPHILS % (AUTO) 0 % (1.0-6.0); HEMOGLOBIN 12.5 g/dL (12.0-16.0); LYMPHOCYTES # (AUTO) 1.1 K/uL (1.0-4.8); LYMPHOCYTES % (AUTO) 7.2 % (22.0-44.0); MEAN CORPUSCULAR HEMOGLOBIN 29.6 pg (26.0-34.0); MEAN CORPUSCULAR HGB CONC 32.9 G/dL (31.0-37.0); MEAN CORPUSCULAR VOLUME 90 fL (80-100); MONOCYTES % (AUTO) 6.4 % (2.0-9.0); NEUTROPHILS # (AUTO) 12.8 K/uL (1.8-7.7); PLATELET COUNT (AUTO) 420 K/uL (150-450); RED BLOOD CELL COUNT(AUTO) 4.24 MIL/uL (4.00-5.20); RED CELL DISTRIBUTION WIDTH 13.9 % (11.5-14.5)
[2023-07-17 04:25] LABS: NEUTROPHILS % (AUTO) 85.8 % (40.0-70.0)
[2023-07-17 04:36] LABS: ALANINE AMINOTRANSFERASE 9 U/L (12-78); ALBUMIN 3.8 g/dL (3.4-5.0); ALKALINE PHOSPHATASE 71 U/L (46-116); ANION GAP 10 mmol/L (8-16); ASPARTATE AMINOTRANSFERASE 12 U/L (15-37); BILIRUBIN,TOTAL 0.6 mg/dL (0.1-1.0); CALCIUM, TOTAL 8.9 mg/dL (8.8-10.5); CARBON DIOXIDE 23 mmol/L (22-29); CHLORIDE 102 mmol/L (98-107); GLOMERULAR FILTR. RATE CALC > 60 mL/min (>60); GLUCOSE,RANDOM 100 mg/dL (70-110); PHOSPHORUS 2.7 mg/dL (2.5-4.9); POTASSIUM 4.9 mmol/L (3.5-5.1); SODIUM SERUM 135 mmol/L (136-145); TOTAL PROTEIN, SERUM 7.5 g/dL (6.4-8.2); UREA NITROGEN, BLOOD 18 mg/dL (7-18)
[2023-07-17 04:38] LABS: ABG A-A DIFF O2 10.2 mmHg (10-20.0); ABG BASE EXCESS -4.5 mmol/L (-2.0-3.0); ABG CARBOXYHEMOGLOBIN 0.7 % (0.0-1.5); ABG HCO3 20.8 mmol/L (22.0-26.0); ABG METHEMOGLOBIN 0.3 % (0.0-1.5); ABG OXYGEN CONTENT 17.7 mL/dL (15.0-23.0); ABG OXYGEN SATURATION 96.2 % (95.0-98.0); ABG OXYHEMOGLOBIN 95.2 % (94.0-100.0); ABG PCO2 45 mmHg (35-45); ABG PH 7.308 (7.350-7.450); ABG TOTAL HEMOGLOBIN 13.2 G/dL (12.0-18.0); ALLEN TEST, BLOOD GAS Positive; O2 DEVICE,BLOOD GAS ROOM AIR (ROOM AIR); PO2, ARTERIAL BG 86.3 mmHg (92.0-100.0); SITE, BLOOD GAS LFT RADIAL; SOURCE, BLOOD GAS ARTERIAL; TEMPERATURE, FAHRENHEIT, BG 98.3 FAHREN (96.0-98.6)
[2023-07-17] MEDS: INSULIN GLARGINE,HUM.REC.ANLOG 100 UNITS/ML SQ SCH ×2 (05:45→08:03)
[2023-07-17] MEDS ORDERED: ONDANSETRON HCL 4 MG TABLET PO PRN (06:00)
[2023-07-17] MEDS: RINGERS SOLUTION,LACTATED 1,000 ML IV SCH ×2 (06:13→15:59)
[2023-07-17 06:45] LABS: THYROID STIMULATING HORMONE 0.18 uIU/mL (0.36-3.74)
[2023-07-17] MEDS: HYDROmorphone HCL 2 MG/ML SYRINGE IVP PRN ×3 (07:22→20:45)
[2023-07-17] MEDS: ONDANSETRON HCL 4 MG/2 ML VIAL IVP PRN ×2 (07:22→20:45)
[2023-07-17] MEDS: FAMOTIDINE 20 MG/2 ML VIAL IVP SCH ×2 (07:40→21:08)
[2023-07-17] MEDS: PANTOPRAZOLE SODIUM 40 MG DR TABLET PO SCH ×2 (07:40→20:50)
[2023-07-17] MEDS: CARVEDILOL 12.5 MG TABLET PO SCH ×3 (07:40→20:49)
[2023-07-17] MEDS: DOCUSATE SODIUM 100 MG CAPSULE PO SCH ×2 (07:41→20:50)
[2023-07-17] MEDS: METOCLOPRAMIDE HCL 5 MG/ML 2 ML VIAL IVP PRN (07:51)
[2023-07-17] MEDS ORDERED: DEXTROSE 50%-WATER 25 GM/50 ML SYRINGE IVP PRN (08:00)
[2023-07-17 08:11] LABS: GLUCOSE,POINT OF CARE 132 MG/DL (70-110)
[2023-07-17 08:41] LABS: GLUCOSE,POINT OF CARE 145 MG/DL (70-110)
[2023-07-17 08:41] LABS: GLUCOSE,POINT OF CARE 83 MG/DL (70-110)
[2023-07-17 08:41] LABS: GLUCOSE,POINT OF CARE 107 MG/DL (70-110)
[2023-07-17 08:41] LABS: GLUCOSE,POINT OF CARE 81 MG/DL (70-110)
[2023-07-17 08:41] LABS: GLUCOSE,POINT OF CARE 102 MG/DL (70-110)
[2023-07-17 08:41] LABS: GLUCOSE,POINT OF CARE 90 MG/DL (70-110)
[2023-07-17] MEDS ORDERED: METOCLOPRAMIDE HCL 5 MG/ML 2 ML VIAL IVP ONE (11:45)
[2023-07-17] MEDS: INSULIN LISPRO 100 UNITS/ML SQ PRN ×2 (11:46→17:15)
[2023-07-17 11:51] LABS: GLUCOSE,POINT OF CARE 131 MG/DL (70-110)
[2023-07-17] MEDS ORDERED: METHIMAZOLE 5 MG TABLET PO SCH (21:00)
[2023-07-18] MEDS: HEPARIN SODIUM,PORCINE 5,000 UNITS/ML VIAL SQ SCH ×2 (00:18→08:00)
[2023-07-18] MEDS: METOCLOPRAMIDE HCL 5 MG/ML 2 ML VIAL IVP PRN (00:23)
[2023-07-18 00:32] LABS: GLUCOMETER DEV NAME(LOC) 5S.1B; GLUCOSE,POINT OF CARE 102 MG/DL (70-110)
[2023-07-18 00:51] VITALS: BP 150/100; PULSE 106; RESP 18; TEMP 98.5
[2023-07-18 05:14] VITALS: BP 146/99; PULSE 115; RESP 18; TEMP 97.9
[2023-07-18] MEDS: RINGERS SOLUTION,LACTATED 1,000 ML IV SCH (06:58)
[2023-07-18] MEDS: INSULIN LISPRO 100 UNITS/ML SQ PRN (07:35)
[2023-07-18 08:41] LABS: GLUCOMETER DEV NAME(LOC) 5N.1C; GLUCOSE,POINT OF CARE 230 MG/DL (70-110)
[2023-07-18 08:43] VITALS: BP 99/72; PULSE 85; RESP 16; TEMP 97.9
[2023-07-18] MEDS: PANTOPRAZOLE SODIUM 40 MG DR TABLET PO SCH (08:57)
[2023-07-18] MEDS: CARVEDILOL 12.5 MG TABLET PO SCH (08:57)
[2023-07-18] MEDS: INSULIN GLARGINE,HUM.REC.ANLOG 100 UNITS/ML SQ SCH (08:59)
[2023-07-18] MEDS: FAMOTIDINE 20 MG/2 ML VIAL IVP SCH (09:00)
[2023-07-18] MEDS: ETHYL ALCOHOL 62% ANTISEPTIC NASAL SANITIZER 0.6 ML AMPUL NASAL SCH (09:00)
[2023-07-18] MEDS: DOCUSATE SODIUM 100 MG CAPSULE PO SCH (09:00)
[2023-07-18] MEDS ORDERED: INSLAN SQ (09:40)
[2023-07-18] MEDS ORDERED: METH-386 PO (09:41)
[2023-07-18] MEDS ORDERED: CARV6 PO (09:41)
[2023-07-18 20:06] LABS: GLUCOMETER DEV NAME(LOC) 5S.2C; GLUCOSE,POINT OF CARE 219 MG/DL (70-110)
== END 2023-07-18 11:05 | disposition home or self-care (01) | DRG 420 ==
LOC: EMS 18:10 → ICU 21:56 → 5S 07-17 13:00
PROVIDERS: ADMIT Internal Medicine; ATTEND Internal Medicine
DX: E10.10 Type 1 diabetes mellitus with ketoacidosis without coma (principal); N17.0 Acute kidney failure with tubular necrosis; R65.11 Systemic inflammatory response syndrome (SIRS) of non-infectious origin with acute organ dysfunction; K31.84 Gastroparesis; E43 Unspecified severe protein-calorie malnutrition; E03.9 Hypothyroidism, unspecified; E10.43 Type 1 diabetes mellitus with diabetic autonomic (poly)neuropathy; Z91.199 Patient's noncompliance with other medical treatment and regimen due to unspecified reason; Z87.440 Personal history of urinary (tract) infections; Z82.49 Family history of ischemic heart disease and other diseases of the circulatory system; Z68.1 Body mass index [BMI] 19.9 or less, adult; Z91.148 Patient's other noncompliance with medication regimen for other reason
CPT/HCPCS: 36600; 71045; 80048; 80053; 81001; 81003; 82009; 82550; 82805; 82962; 83735; 83880; 83930; 83935; 84100; 84443; 84484; 84703; 85025; 87081; 93005; 99291; G0378; J1170; J1200; J1644; J1815; J2270; J2405; J2765; J3480; J3490; J7030; J7050; J7120; 36415-L1; 36415-TC

== ENCOUNTER 2024-09-13 10:53 | Emergency (ER) | payer MEDICAID ==
[~2024-09-13] VITALS: Ht 185.4 cm; Wt 75.9 kg
[~2024-09-13 10:53] MED LIST changes: -CARV12 PO; +INSU100V SQ; -METH-386 PO; +METO5TAB95 PO; -NITR-75 PO; -ONDA-104 PO; -PANT-31 PO
[2024-09-13 11:06] VITALS: TEMP 98.5
[2024-09-13] MEDS: MORPHINE SULFATE 2 MG/ML SYRINGE IVP ONE (11:28)
[2024-09-13] MEDS: METOCLOPRAMIDE HCL 5 MG/ML 2 ML VIAL IVP ONE (11:28)
[2024-09-13 11:40] LABS: GLUCOMETER DEV NAME(LOC) ERT.6; GLUCOSE,POINT OF CARE 262 MG/DL (70-110)
[2024-09-13 11:49] LABS: BASOPHILS % (AUTO) 0.3 % (0.0-2.0); EOSINOPHILS % (AUTO) 0.1 % (1.0-6.0); HEMATOCRIT 33.3 % (36-46); HEMOGLOBIN 11.2 g/dL (12.0-16.0); LYMPHOCYTES # (AUTO) 0.7 K/uL (1.0-4.8); LYMPHOCYTES % (AUTO) 6.1 % (22.0-44.0); MEAN CORPUSCULAR HEMOGLOBIN 30.7 pg (26.0-34.0); MEAN CORPUSCULAR HGB CONC 33.7 G/dL (31.0-37.0); MEAN CORPUSCULAR VOLUME 91 fL (80-100); MONOCYTES # (AUTO) 0.3 K/uL (0.1-1.0); MONOCYTES % (AUTO) 2.5 % (2.0-9.0); PLATELET COUNT (AUTO) 280 K/uL (150-450); RED BLOOD CELL COUNT(AUTO) 3.65 MIL/uL (4.00-5.20); RED CELL DISTRIBUTION WIDTH 13.6 % (11.5-14.5); WHITE BLOOD COUNT (AUTO) 12.1 K/uL (4.5-11.0)
[2024-09-13 12:06] LABS: ANION GAP 15 mmol/L (8-16); CALCIUM, TOTAL 8.9 mg/dL (8.8-10.5); CARBON DIOXIDE 20 mmol/L (22-29); CHLORIDE 99 mmol/L (98-107); CREATININE 0.86 mg/dL (0.60-1.30); GLOMERULAR FILTR. RATE CALC > 60 mL/min (>60); GLUCOSE,RANDOM 282 mg/dL (70-110); POTASSIUM 3.6 mmol/L (3.5-5.1); SODIUM SERUM 134 mmol/L (136-145); UREA NITROGEN, BLOOD 9 mg/dL (7-18)
[2024-09-13 12:10] LABS: ALANINE AMINOTRANSFERASE 13 U/L (12-78); ALBUMIN 2.8 g/dL (3.4-5.0); ALKALINE PHOSPHATASE 83 U/L (46-116); ASPARTATE AMINOTRANSFERASE 18 U/L (15-37); BILIRUBIN,TOTAL 0.6 mg/dL (0.1-1.0); LIPASE 26 U/L (16-77); TOTAL PROTEIN, SERUM 7.2 g/dL (6.4-8.2)
[2024-09-13 12:11] LABS: ACETONE,BLOOD NEGATIVE (NEGATIVE)
[2024-09-13 12:48] LABS: APPEARANCE,URINE CLEAR (CLEAR); BILIRUBIN,URINE NEGATIVE (NEGATIVE); COLOR,URINE YELLOW (YELLOW); GLUCOSE, URINE (UA) >=1000 mg/dL (NEGATIVE); KETONES,URINE 80-100 mg/dL (NEGATIVE); LEUKOCYTE ESTERASE ,URINE NEGATIVE (NEGATIVE); NITRATE,URINE NEGATIVE (NEGATIVE); OCCULT BLOOD,URINE NEGATIVE (NEGATIVE); PROTEIN,URINE 100-200,SEE CONFIRM mg/dL (NEGATIVE); SPECIFIC GRAVITIY, URINE 1.024 (1.003-1.030); UROBILINOGEN,URINE <=1.0 mg/dL (<=1.0)
[2024-09-13 12:55] LABS: ALCOHOL, URINE DRUG SCREEN NEGATIVE (NEGATIVE); AMPHET/METH SCREEN,URINE NEGATIVE (NEGATIVE); BARBITURATE SCREEN, URINE NEGATIVE (NEGATIVE); BENZODIAZEPINES SCREEN,URINE NEGATIVE (NEGATIVE); CANNABINOID SCREEN,URINE POSITIVE (NEGATIVE); COCAINE SCREEN,URINE NEGATIVE (NEGATIVE); METHADONE SCREEN, URINE NEGATIVE (NEGATIVE); OPIATE SCREEN,URINE POSITIVE (NEGATIVE); PHENCYCLIDINE SCREEN,URINE NEGATIVE (NEGATIVE)
[2024-09-13 13:31] LABS: SULFOSALICYLIC ACID,URINE 2+ (Negative)
[2024-09-13 13:32] LABS: BACTERIA,URINE Many /HPF (None Seen); RBC,URINE 0-2 /HPF (0-2); SQUAMOUS EPITHELIAL CELL,UR Few /LPF (None Seen)
[2024-09-13] MEDS ORDERED: CEPH-558 PO (13:49)
[2024-09-13] MEDS ORDERED: PYRI-9 PO (13:49)
[2024-09-13] MEDS: ACETAMINOPHEN 500 MG TABLET PO ONE (14:03)
[2024-09-13 14:04] VITALS: BP 112/67; PULSE 86; RESP 15; O2SAT 99
== END 2024-09-13 14:22 | disposition home or self-care (01) ==
LOC: EMS 10:55
DX: O99.891 Other specified diseases and conditions complicating pregnancy (principal); O21.9 Vomiting of pregnancy, unspecified; Z3A.16 16 weeks gestation of pregnancy; R19.7 Diarrhea, unspecified; R82.71 Bacteriuria; O24.112 Pre-existing type 2 diabetes mellitus, in pregnancy, second trimester; E11.10 Type 2 diabetes mellitus with ketoacidosis without coma; O99.322 Drug use complicating pregnancy, second trimester; F12.90 Cannabis use, unspecified, uncomplicated; Z79.4 Long term (current) use of insulin
CPT/HCPCS: 99284; 96374; 96375; 80048; 80076; 81001; 82009; 82962; 83690; 85025; 87077; 87086; 36415; 80307; J2765; J2270; 81002

== ENCOUNTER 2024-10-09 07:19 | Emergency (ER) | payer MEDICAID ==
[~2024-10-09] VITALS: Ht 185.4 cm; Wt 75.0 kg
[~2024-10-09 07:19] MED LIST changes: +CEPH-558 PO; +PYRI-9 PO
[2024-10-09 07:51] LABS: GLUCOMETER DEV NAME(LOC) ERT.6; GLUCOSE,POINT OF CARE 487 MG/DL (70-110)
[2024-10-09 08:15] LABS: EOSINOPHILS % (AUTO) 0.2 % (1.0-6.0); HEMATOCRIT 34.3 % (36-46); HEMOGLOBIN 11.5 g/dL (12.0-16.0); LYMPHOCYTES # (AUTO) 0.9 K/uL (1.0-4.8); LYMPHOCYTES % (AUTO) 7.4 % (22.0-44.0); MEAN CORPUSCULAR HEMOGLOBIN 30.9 pg (26.0-34.0); MEAN CORPUSCULAR HGB CONC 33.7 G/dL (31.0-37.0); MEAN CORPUSCULAR VOLUME 92 fL (80-100); MONOCYTES # (AUTO) 0.6 K/uL (0.1-1.0); MONOCYTES % (AUTO) 4.7 % (2.0-9.0); NEUTROPHILS # (AUTO) 11.1 K/uL (1.8-7.7); PLATELET COUNT (AUTO) 365 K/uL (150-450); RED BLOOD CELL COUNT(AUTO) 3.74 MIL/uL (4.00-5.20); RED CELL DISTRIBUTION WIDTH 13.1 % (11.5-14.5); WHITE BLOOD COUNT (AUTO) 12.8 K/uL (4.5-11.0)
[2024-10-09 08:16] LABS: NEUTROPHILS % (AUTO) 86.7 % (40.0-70.0)
[2024-10-09] MEDS: ONDANSETRON HCL 4 MG/2 ML VIAL IVP ONE (08:36)
[2024-10-09] MEDS: SODIUM CHLORIDE 0.9% 1,000 ML IV ONE ×2 (08:38→10:21)
[2024-10-09] MEDS: INSULIN REGULAR, HUMAN 100 UNITS/ML IVP ONE (08:38)
[2024-10-09 09:05] LABS: ABG BASE EXCESS -4.1 mmol/L (-2.0-3.0); ABG CARBOXYHEMOGLOBIN 0.8 % (0.5-1.5); ABG HCO3 21.4 mmol/L (21.0-28.0); ABG OXYGEN CONTENT 16.1 mL/dL (15.0-23.0); ABG OXYGEN SATURATION 97.5 % (94.0-98.0); ABG OXYHEMOGLOBIN 95.7 % (94.0-98.0); ABG PCO2 36 mmHg (32.0-45.0); ABG TOTAL HEMOGLOBIN 11.9 G/dL (12.0-16.0); PO2, ARTERIAL BG 94.8 mmHg (83.0-108.0); SOURCE, BLOOD GAS ARTERIAL; TEMPERATURE, FAHRENHEIT, BG 97.1 FAHREN (96.0-98.6)
[2024-10-09 09:06] LABS: ABG A-A DIFF O2 11.7 mmHg (10-20.0); ALLEN TEST, BLOOD GAS Positive; O2 DEVICE,BLOOD GAS ROOM AIR (ROOM AIR); SITE, BLOOD GAS LFT RADIAL
[2024-10-09 09:22] LABS: ALANINE AMINOTRANSFERASE 16 U/L (12-78); ALKALINE PHOSPHATASE 121 U/L (46-116); ANION GAP 17 mmol/L (8-16); ASPARTATE AMINOTRANSFERASE 28 U/L (15-37); BILIRUBIN,TOTAL 0.9 mg/dL (0.1-1.0); CALCIUM, TOTAL 9.3 mg/dL (8.8-10.5); CARBON DIOXIDE 22 mmol/L (22-29); CHLORIDE 92 mmol/L (98-107); CREATININE 1.08 mg/dL (0.60-1.30); GLOMERULAR FILTR. RATE CALC > 60 mL/min (>60); GLUCOSE,RANDOM 481 mg/dL (70-110); HCG,QUANTITATIVE 23957 mIU/mL (0-6); LIPASE 36 U/L (16-77); SODIUM SERUM 131 mmol/L (136-145); TOTAL PROTEIN, SERUM 7.9 g/dL (6.4-8.2); UREA NITROGEN, BLOOD 16 mg/dL (7-18)
[2024-10-09] MEDS: ACETAMINOPHEN 1000 MG/ISO-OSM 100 ML IV ONE (10:21)
[2024-10-09 10:22] LABS: APPEARANCE,URINE CLEAR (CLEAR); BILIRUBIN,URINE NEGATIVE (NEGATIVE); COLOR,URINE LIGHT YELLOW (YELLOW); GLUCOSE, URINE (UA) >=1000 mg/dL (NEGATIVE); KETONES,URINE =>150 mg/dL (NEGATIVE); LEUKOCYTE ESTERASE ,URINE NEGATIVE (NEGATIVE); NITRATE,URINE NEGATIVE (NEGATIVE); OCCULT BLOOD,URINE LARGE (NEGATIVE); PROTEIN,URINE 300-600,SEE CONFIRM mg/dL (NEGATIVE); SPECIFIC GRAVITIY, URINE 1.034 (1.003-1.030); UROBILINOGEN,URINE <=1.0 mg/dL (<=1.0)
[2024-10-09 10:35] LABS: SULFOSALICYLIC ACID,URINE 3+ (Negative)
[2024-10-09 10:36] LABS: BACTERIA,URINE None Seen /HPF (None Seen); SQUAMOUS EPITHELIAL CELL,UR Few /LPF (None Seen); WBC,URINE None Seen /HPF (0-5)
[2024-10-09 11:08] LABS: ALCOHOL, URINE DRUG SCREEN NEGATIVE (NEGATIVE); AMPHET/METH SCREEN,URINE NEGATIVE (NEGATIVE); BARBITURATE SCREEN, URINE NEGATIVE (NEGATIVE); BENZODIAZEPINES SCREEN,URINE NEGATIVE (NEGATIVE); CANNABINOID SCREEN,URINE POSITIVE (NEGATIVE); COCAINE SCREEN,URINE NEGATIVE (NEGATIVE); METHADONE SCREEN, URINE NEGATIVE (NEGATIVE); OPIATE SCREEN,URINE NEGATIVE (NEGATIVE); PHENCYCLIDINE SCREEN,URINE NEGATIVE (NEGATIVE)
[2024-10-09 11:14] VITALS: TEMP 97.1
[2024-10-09 11:26] VITALS: BP 155/86; PULSE 110; RESP 18; O2SAT 97
[2024-10-09 16:26] LABS: GLUCOMETER DEV NAME(LOC) ER.7; GLUCOSE,POINT OF CARE 278 MG/DL (70-110)
== END 2024-10-09 12:12 | disposition short-term general hospital (02) ==
LOC: EMS 07:25
DX: O24.112 Pre-existing type 2 diabetes mellitus, in pregnancy, second trimester (principal); O99.322 Drug use complicating pregnancy, second trimester; O26.892 Other specified pregnancy related conditions, second trimester; E11.10 Type 2 diabetes mellitus with ketoacidosis without coma; E86.0 Dehydration; F12.20 Cannabis dependence, uncomplicated; Z79.4 Long term (current) use of insulin
CPT/HCPCS: 99285; 96365; 76700; 76805; 96375; 96361; 80048; 80076; 81001; 82009; 82962; 83690; 84702; 85025; 36415; 82805; 36600; 93005; 80307; J1815; J2405; J7030; J0131; 81002